=== PATIENT | female | born 1940 | race Caucasian/White ===

== ENCOUNTER → 2019-04-04 12:56 | Outpatient (CLI) | payer MEDICARE, BC, SELFPAY ==
--- NOTE | 2019-04-04 13:01 | MM_ITS ---
MM Dig screening mamm BI w/CAD CAD Screening COMPARISON: Outside digital mammograms with CAD 12/11/2017 and 12/10/2016 INDICATION: There is a history of breast cancer patient's mother diagnosed at age 75. TECHNIQUE: Standard CC and MLO images were obtained. R2 CAD reviewed. FINDINGS: The breasts are composed primarily of fat with minimal scattered fibroglandular densities in each breast. There is a mole marker on each breast. There are few scattered benign-appearing microcalcifications in each breast. There is no suspicious lesion and there are no suspicious microcalcifications. IMPRESSION: Fibrofatty parenchyma with no suspicious lesion seen BI-RADS Category: 2 Benign Finding(s) RECOMMENDED FOLLOW-UP: 1YR - 1 YEAR FOLLOW-UP (A letter has been sent to the patient regarding results of the study.)
== END ==
PROVIDERS: PCP Nurse Practitioner Family; Visit Provider Nurse Practitioner Family
DX: Z12.31 Encounter for screening mammogram for malignant neoplasm of breast (principal)
CPT/HCPCS: 77067

== ENCOUNTER → 2019-07-05 14:21 | Outpatient (CLI) | payer MEDICARE, BC, SELFPAY ==
[2019-07-05 17:11] LABS: Free T4 (Free Thyroxine) 1.37 ng/dl (0.76-1.46); Thyroid Stimulating Hormone 0.19 uIU/ml (0.358-3.740)
[2019-07-09 13:21] LABS: Thyroglobulin Level <1.0 IU/mL (0.0-0.9); Triiodothyronine (T3) Free 1.5 pg/mL (2.0-4.4)
== END ==
PROVIDERS: Visit Provider Internal Medicine Endocrinology, Diabetes & Metabolism
DX: E89.0 Postprocedural hypothyroidism (principal); R94.6 Abnormal results of thyroid function studies; Z85.850 Personal history of malignant neoplasm of thyroid
CPT/HCPCS: 36415; 84436; 84439; 84443; 84481; 86800

== ENCOUNTER → 2019-08-04 09:22 | Outpatient (CLI) | payer MEDICARE, BC, SELFPAY ==
--- NOTE | 2019-08-04 09:27 | XR_ITS ---
PROCEDURE: XR FOOT WT BEARING LT 3V CLINICAL INDICATION: Pain COMPARISON: XR ANKLE WT BEARING LT MIN 3V from 08/04/2019 FINDINGS: No fracture or dislocation. No lytic or blastic change. There is normal mineralization. The joint spaces are well-preserved. No significant degenerative/arthritic changes. No erosive changes evident. Other findings:There is mild pes planus. There is mild soft tissue swelling overlying the medial malleolar region. The talar dome has an unremarkable appearance. IMPRESSION: Mild pes planus with soft tissue swelling overlying the medial aspect of the ankle otherwise negative Dictated by: Bradley Wyatt MD 08/04/2019 15:27 Electronically signed by Bradley Wyatt MD in [place] 08/04/2019 15:27
--- NOTE | 2019-08-04 09:27 | XR_ITS ---
PROCEDURE: XR ANKLE WT BEARING RT MIN 3V CLINICAL INDICATION: pain COMPARISON: XR FOOT WT BEARING RT 3V from 08/04/2019 FINDINGS: Mild soft tissue swelling at the medial malleolar region. There is a small os trigonum. Minimal osteoarthritic changes are present at the 1st MTP joint. No fracture or dislocation. No lytic or blastic change or other significant degenerative change. IMPRESSION: Mild osteoarthritic change 1st MTP joint with mild soft tissue swelling at the medial ankle Dictated by: Bradley Wyatt MD 08/04/2019 15:28 Electronically signed by Bradley Wyatt MD in [place] 08/04/2019 15:28
== END ==
PROVIDERS: PCP Nurse Practitioner Family; Visit Provider Podiatrist
DX: M79.672 Pain in left foot; M79.671 Pain in right foot; M25.572 Pain in left ankle and joints of left foot; M25.571 Pain in right ankle and joints of right foot
CPT/HCPCS: 73610; 73630

== ENCOUNTER → 2020-04-10 09:45 | Outpatient (CLI) | payer MEDICARE, BC, SELFPAY ==
--- NOTE | 2020-04-10 09:51 | MM_ITS ---
PROCEDURE: MM DIG SCREENING MAMM BI W/CAD Digital Breast Tomosynthesis Included CLINICAL INDICATION: SCREENING There is a history of breast cancer patient's mother diagnosed after menopause. COMPARISON: DIG MAMM-SCREEN LARA from 04/04/2019 TECHNIQUE: Standard CC and MLO images and 3D Tomosynthesis was obtained. R2 CAD reviewed. FINDINGS: Scattered fibroglandular densities are seen throughout both breast. There is a mole marker on each breast and there are few benign-appearing calcifications in each breast. There is a possible developing small density with irregular borders medial quadrant right breast at approximately the 3 o'clock position recommend the patient return for spot compression views and ultrasound for additional evaluation. There are no suspicious microcalcifications. There are small normal appearing nodes in both axilla. IMPRESSION: Fibrofatty parenchyma with possible developing asymmetric density right breast BI-RAD Category: 0 Need Additional Imaging Evaluation FOLLOW-UP: IMM Immediate Follow-up Recommended (A letter has been sent to the patient regarding results of the study.) Dictated by: Dr. Ike Escalante MD 04/13/2020 09:[address] Ike Escalante MD in [place] 04/13/2020 09:21
== END ==
PROVIDERS: PCP Nurse Practitioner Family; Visit Provider Nurse Practitioner Family
DX: Z12.31 Encounter for screening mammogram for malignant neoplasm of breast (principal)
CPT/HCPCS: 77063; 77067

== ENCOUNTER → 2020-04-25 13:08 | Outpatient (CLI) | payer MEDICARE, BC, SELFPAY ==
--- NOTE | 2020-04-25 13:12 | US_ITS ---
PROCEDURE: MM DIG MAMM DX UNILAT RT CAD Digital Breast Tomosynthesis Included CLINICAL INDICATION: ABN R BREAST ON SCREENING MAMM COMPARISON: DIG MAMM-SCREEN LARA from 04/04/2019 MM DIG SCREENING MAMM BI W/CAD from 04/10/2020 US BREAST RT COMPLETE from 04/25/2020 TECHNIQUE: Spot compression views and right breast ultrasound FINDINGS: There is a small asymmetric density ill-defined in the medial aspect of the right breast. This appears to at least somewhat compress out on the spot compression views. No sonographic abnormality apparent in this region. This may only be related to asymmetric fibroglandular tissue. Six-month follow-up is suggested. Right breast ultrasound: No cystic or solid lesions evident. IMPRESSION: BI-RAD Category: 3 Probably Benign Finding Short Term Follow-up FOLLOW-UP: 6M 6Month Follow-up (A letter has been sent to the patient regarding results of the study.) Dictated by: Bradley Wyatt MD 04/30/2020 09:03 Electronically signed by Bradley Wyatt MD in [place] 04/30/2020 09:03
== END ==
PROVIDERS: PCP Nurse Practitioner Family; Visit Provider Nurse Practitioner Family
DX: R92.8 Other abnormal and inconclusive findings on diagnostic imaging of breast (principal)
CPT/HCPCS: 76641; 77061; 77065; G0279

== ENCOUNTER → 2021-06-10 13:39 | Outpatient (CLI) | payer MEDICARE, BC, SELFPAY ==
--- NOTE | 2021-06-10 13:47 | US_ITS ---
PROCEDURE: US THYROID CLINICAL INDICATION: F/U THYROID CA COMPARISON: No exams were available for comparison FINDINGS: There is reported prior left thyroidectomy and radiation to the thyroid region. Right lobe is small with a remnant of tissue noted measuring 6 x 4 x 6 mm. No nodule apparent. No thyroid tissue apparent on the left or at the isthmus. No nodules or masses apparent IMPRESSION: Status post left-sided thyroidectomy. Small remnant of tissue is present on the right. No mass or other significant anomaly. Dictated by: Bradley Wyatt MD 06/10/2021 14:44 Bradley Wyatt MD in [place] 06/10/2021 14:44
== END ==
PROVIDERS: PCP Nurse Practitioner Family; Visit Provider Internal Medicine Endocrinology, Diabetes & Metabolism
DX: Z85.850 Personal history of malignant neoplasm of thyroid (principal)
CPT/HCPCS: 76536

== ENCOUNTER → 2022-02-25 08:22 | Outpatient (POV) | payer MEDICARE, BC, SELFPAY | PROVIDERS: Visit Provider Dermatology | DX: Z00.00 Encounter for general adult medical examination without abnormal findings (principal) ==

== ENCOUNTER → 2022-03-26 12:32 | Outpatient (CLI) | payer MEDICARE, BC, SELFPAY ==
[2022-03-27 08:13] LABS: Triiodothyronine (T3) Free 1.6 pg/mL (2.0-4.4)
== END ==
PROVIDERS: PCP Nurse Practitioner Family; Visit Provider Internal Medicine Endocrinology, Diabetes & Metabolism
DX: R53.83 Other fatigue (principal)
CPT/HCPCS: 36415; 84481

== ENCOUNTER 2022-03-27 17:29 | Inpatient (IN) | payer MEDICARE, BC, SELFPAY ==
[2022-03-27] VITALS (8 sets, daily range): BP systolic 99–120; BP diastolic 52–64; PULSE 74–85; RESP 17–21; TEMP 36.6–36.7; O2SAT 93–96; BMI 28.3; BMI 31.6
--- NOTE | 2022-03-27 17:40 | HMH.EDGENADL ---
ED Disposition Clinical Impression: Hypomagnesemia, Hypocalcemia, Hypokalemia Disposition: Admitted As Inpatient Condition on Discharge: Serious Referrals: Dinora Quevedo MD [Primary Care Provider] - Time of Disposition: 20:07 - Critical Care Critical Care Time: No Attestation: On 03/27/22, the high probability of a clinically significant, sudden or life threatening deterioration of the following system(s) required my full and direct attention, intervention and personal management. The time I documented below is in addition to time spent performing reported procedures but includes the following listed in this critical care notation. Medical Decision Making - Medical Records Medical records reviewed: Yes: I reviewed the patient's medical records. - Benjie Inquiry Pt receiving controlled substance: No Vital Signs: 03/27/22 17:31 03/27/22 18:00 Temperature 98.1 F Temperature Source Oral Pulse Rate 78 Pulse Rate [Right Radial] 85 Respiratory Rate 21 Blood Pressure 99/52 L Blood Pressure [Right Arm] 118/61 Blood Pressure Mean 77 Blood Pressure Mean [Right Arm] 80 Blood Pressure Source [Right Arm] Automatic Cuff Blood Pressure Position [Right Arm] Sitting 02 Sat by Pulse Oximetry 95 93 L Oxygen Delivery Method Room Air Nasal Cannula Oxygen Flow Rate (LPM) 3 - Lab Data Lab results reviewed: Yes: I reviewed the patient's lab results. Lab Results 03/27/22 18:00: WBC 13.6 H, RBC 4.07 L, Hgb 11.7 L, Hct 35.3 L, MCV 86.7, MCH 28.6, MCHC 33.0, RDW 15.1, Plt Count 250, MPV 8.8, Neut % (Auto) 94.5 H, Lymph % (Auto) 3.6 L, Reynolds % (Auto) 1.3 L, Eos % (Auto) 0.3, Baso % (Auto) 0.3, Neut # (Auto) 12.9 H, Lymph # (Auto) 0.5 L, Reynolds # (Auto) 0.2, Eos # (Auto) 0.0, Baso # (Auto) 0.0, Total Counted 100, Neutrophils % (Manual) 92 H, Band Neutrophils % 2.0, Lymphocytes % (Manual) 5 L, Monocytes % (Manual) 1 L, Platelet Estimate Normal, RBC Morphology Normal 03/27/22 18:00: Sodium 140, Potassium 3.0 L, Chloride 103, Carbon Dioxide 23, Anion Gap 17.0 H, BUN 23 H, Creatinine 1.20 H, Estimated Creat Clear 40, Estimated GFR 43 L, Est GFR ( Amer) 52 L, Glucose 197 H, Calcium 5.2 L* 03/27/22 18:00: Phosphorus 3.5, Magnesium 0.3 L, PTH Intact 34.5 03/27/22 18:00: Albumin 3.6 Result diagrams: 03/27/22 18:00 03/27/22 18:00 Orders (Tests/Meds): ED MEDICATIONS Generic Name Dose Route Start Last Admin Trade Name Freq PRN Reason Stop Dose Admin Calcium Gluconate 2,000 mg/ 120 mls @ 60 mls/hr 03/27/22 19:12 Sodium Chloride IV 03/27/22 21:11 ONCE ONE Magnesium Sulfate 2 gm in 50 mls @ 50 mls/hr 03/27/22 19:12 03/27/22 19:35 Magnesium Sulfate 2gm/50ml Premix IV 03/27/22 20:11 50 mls/hr ONCE ONE Administration Discontinued Medications Generic Name Dose Route Start Last Admin Trade Name Freq PRN Reason Stop Dose Admin Potassium Chloride 40 meq 03/27/22 19:12 03/27/22 19:35 Potassium Chloride 20meq Tab PO 03/27/22 19:13 40 meq ONCE ONE Administration ORDERS Category Date Time Status Rapid PCR Covid and Flu A/B Stat Lab 03/27/22 19:19 Received - ECG Data Tracing #1 I reviewed this ECG and interpreted as documented below: NSR @ 80 with occasional PVC;s WA 137 QRS 93 QTc 416 non-specific ST/T wave changes Medical Decision Narrative: profound electrolyte disturbances, spoke with Dr. Berman who offered transfer may be useful as pt may require endocrinology or nephrology. Discussed with pt and who decline transfer. i did discuss the risks and limitations of this. She is agreeable to admission here, so will pursue that as the safest next option. electrolytes being replaced here and pt currently stable and relatively asymptomatic. General Adult HPI - General Stated complaint: low on calcuim Time Seen by Provider: 03/27/22 17:40 Mode of Arrival: Ambulatory Limitations: No Limitations - History of Present Illness HPI narrative: 81 yo/F,
--- NOTE | 2022-03-27 17:46 | ECG_ITS ---
APPROVED REPORT Exam: Resting ECG HR:80 bpm ECG Measurements Heart Rate 80 AXES CA 137 P 75 QRSd 93 QRS 74 QT 380 T 46 QTc 416 Conclusion SINUS RHYTHM WITH OCCASIONAL VENTRICULAR PREMATURE COMPLEXES NONSPECIFIC ST & T-WAVE ABNORMALITY BORDERLINE ECG UNCONFIRMED REPORT Electronically signed by : Hammad Queen MD 03/28/2022 15:36:23
[2022-03-27 18:17] LABS: Basophils % 0.3 % (0.1-2.0); Eosinophils % 0.3 % (0.1-12.0); Hematocrit 35.3 % (37.0-47.0); Hemoglobin 11.7 g/dL (12.2-16.2); Lymphocytes # 0.5 K/mm3 (0.7-4.5); Lymphocytes % 3.6 % (10-50); Mean Corpuscular Hemoglobin 28.6 pg (27.0-31.2); Mean Corpuscular Volume 86.7 fl (81-99); Mean Platelet Volume 8.8 fl (7.4-10.4); Monocytes # 0.2 K/mm3 (0.1-1.0); Monocytes % 1.3 % (1.7-9.3); Neutrophils # 12.9 K/mm3 (1.8-7.8); Neutrophils % 94.5 % (37.0-80.0); Platelet Count 250 K/mm3 (142-424); Red Blood Count 4.07 M/mm3 (4.20-5.40); Red Cell Distribution Width 15.1 % (11.5-17.5); White Blood Count 13.6 K/mm3 (4.8-10.8)
[2022-03-27 18:18] LABS: MANUAL DIFFERENTIAL MANUAL DIFFERENTIAL (MANUAL DIFF)
[2022-03-27 18:22] LABS: Blood Urea Nitrogen 23 mg/dl (7-17); Carbon Dioxide 23 mmol/L (22.0-30.0); Chloride 103 mmol/L (98-107); Creatinine Clearance Estimated 40 mL/min (50-200); Estimated Glomerular Filt Rate 43 ml/min (>60); GFR (African American) 52 ML/MIN (>60); Glucose 197 mg/dl (74-100); Sodium 140 mmol/L (136-145)
[2022-03-27 18:23] LABS: Phosphorous 3.5 mg/dl (2.5-4.5)
[2022-03-27 18:27] LABS: Calcium 5.2 mg/dl (8.4-10.2)
[2022-03-27 18:28] LABS: Magnesium 0.3 mg/dl (1.6-2.3)
[2022-03-27 18:35] LABS: Intact Parathyroid Hormone 34.5 pg/mL (7.5-53.5)
[2022-03-27 18:50] LABS: Lymphocytes % 5 % (10-50); Monocytes % 1 % (2-9); Neutrophils % 92 % (42-76); Platelet Estimate Normal; RBC Morphology Normal; Total Cells Counted 100
--- NOTE | 2022-03-27 19:15 | PC.NURSE ---
Dr. Cullen bashir.
[2022-03-27 19:22] LABS: Coronavirus 19, PCR Not Detected (NotDetected); Influenza A, PCR Not Detected (NotDetected); Influenza B, PCR Not Detected (NotDetected)
--- NOTE | 2022-03-27 19:32 | PC.NURSE ---
speaking to Dr. Berman
--- NOTE | 2022-03-27 19:38 | PC.NURSE ---
spoke with pt and she refused to be transferred to another facility. speaking with Dr. Berman at this time.
[2022-03-27 19:39] LABS: Albumin Level 3.6 g/dl (3.5-5.0)
--- NOTE | 2022-03-27 19:43 | PC.NURSE ---
MD SPOKE WITH PATIENT AND REFUSES TRANSFER AT THIS TIME. PT ABLE TO VERBALIZE BENEFITS OF TRANSFER AND STATES SHE WANTS TO STAY HERE.
--- NOTE | 2022-03-27 21:05 | PC.NURSE ---
pt arrived to floor via wheelchair at 21:04
[2022-03-28 04:00] VITALS: BP 119/65; PULSE 81; RESP 16; TEMP 36.8; O2SAT 92
--- NOTE | 2022-03-28 04:25 | PC.NURSE ---
Patient continues to have bilateral upper extremity tremors. Patient ambulates with standby assistance to the bathroom and tolerates it well. remains at bedside. Patient has rested well. No concerns voiced to this RN.
[2022-03-28 04:56] VITALS: BMI 31.6
[2022-03-28 07:00] LABS: Basophils % 0.1 % (0.1-2.0); Hematocrit 35.5 % (37.0-47.0); Hemoglobin 11.6 g/dL (12.2-16.2); Lymphocytes # 0.6 K/mm3 (0.7-4.5); Lymphocytes % 4.6 % (10-50); Mean Corpuscular HGB Conc 32.8 g/dL (31.8-35.4); Mean Corpuscular Hemoglobin 28.8 pg (27.0-31.2); Mean Corpuscular Volume 87.6 fl (81-99); Mean Platelet Volume 8.8 fl (7.4-10.4); Monocytes # 0.2 K/mm3 (0.1-1.0); Monocytes % 1.5 % (1.7-9.3); Neutrophils % 93.7 % (37.0-80.0); Platelet Count 254 K/mm3 (142-424); Red Blood Count 4.05 M/mm3 (4.20-5.40); Red Cell Distribution Width 15.1 % (11.5-17.5); White Blood Count 12.8 K/mm3 (4.8-10.8)
[2022-03-28 07:04] LABS: MANUAL DIFFERENTIAL MANUAL DIFFERENTIAL (MANUAL DIFF)
[2022-03-28 07:06] LABS: Chloride 107 mmol/L (98-107); Sodium 141 mmol/L (136-145)
[2022-03-28 07:07] LABS: Potassium 3.4 mmoL/L (3.5-5.1)
[2022-03-28 07:09] LABS: Albumin Level 3.5 g/dl (3.5-5.0); Albumin/Globulin Ratio 1.2 (1.1-1.8); Globulin 2.9 g/dL (1.3-3.2); Magnesium 1.4 mg/dl (1.6-2.3); Total Protein,Serum 6.4 g/dl (6.3-8.2)
--- NOTE | 2022-03-28 07:10 | P.CONPHA_ITS ---
[facility] [place] Pharmacy VTE Monitoring - Patient Demographics Admission date: 03/27/22 Report Date: 03/28/22 Time: 07:10 Allergies/Adverse Reactions: Patient Allergies No Known Allergies Allergy (Verified 08/04/19 08:15) Height: 1.55 m Weight: 75.977 kg Patient Problems: Current Active Problems Hypomagnesemia (Acute) Hypocalcemia (Acute) Hypokalemia (Acute) - VTE Risk Labs: VTE Related Lab Results Hgb 11.6 g/dL (12.2-16.2) L 03/28/22 05:48 Hct 35.5 % (37.0-47.0) L 03/28/22 05:48 Plt Count 254 K/mm3 (142-424) 03/28/22 05:48 BUN 23 mg/dl (7-17) H 03/27/22 18:00 Creatinine 1.20 mg/dl (0.52-1.04) H 03/27/22 18:00 Estimated Creat Clear 40 mL/min (50-200) 03/27/22 18:00 Was VTE Risk Assessment Performed: Yes VTE Score: 4 VTE Risk Level: Low Risk - Prophylaxis VTE Prophylaxis Ordered?: Yes Types of VTE Prophylaxis: TEDS Knee High Location of Applied Device: Bilateral Lower Extremeties
--- NOTE | 2022-03-28 07:20 | HMH.HP ---
*Admission Date: 03/27/22 *Chief complaint: weakness *History of present illness: Ms. Mitchell is a pleasant 81-year-old female who presented to the ER at the request of her PCP because of shaking/tremor and labs identifying low calcium level. States she had developed a resting tremor in her upper extremities over the past week. Her PCP obtained labs showing severely low calcium and instructed her to come to the ER. On arrival her repeat labs were obtained showing severe electrolyte disturbances including hypocalcemia, hypomagnesemia. Stable on room air. Hemodynamically stable. Of note had a similar episode requiring hospitalization in [place] little over a year ago. Denies chest pain, nausea, vomiting, diarrhea, significant weakness. Feels her tremor is a little bit improved this morning. Electrolytes repleted overnight. at bedside. Tolerating p.o. intake. Of note she does report chronic diarrhea ever since cholecystectomy years ago. She does have prior history of thyroidectomy for thyroid cancer. Follows with post commander (Dr. Campbell) in [place]. Has an appointment next week. [facility] History I have reviewed the patient's past medical history: Yes Medical History: Reports:: Cancer (Thyroid), Chronic Obstructive Pulmonary Disease (COPD), Gastroesophageal Reflux Disease(GERD), Hypertension Denies:: Diabetes Mellitus Type 1, Diabetes Mellitus Type 2, MRSA *Have you ever received a pneumonia vaccine?: Yes *Have you received a flu vaccine this season?: No Other Medical History: Reports: Arthritis, Cataracts, Thyroid Disease Laterality Cases: Bilateral: Tonsillectomy Other Surgeries: Yes: Appendectomy, Cancer Surgery, Colonoscopy, Hysterectomy-Total, Thyroidectomy (partial ) Amputation: No Fractures: No - *Social History Smoking Status: Never smoker Alcohol Intake: never *Occupational Status:: retired Housing: house Household Members: spouse *Travel in the last 8 weeks: None Family Hx:: Cancer, Hypertension Review of Systems - Review of Systems Review of systems:: pertinent systems reviewed and negative unless documented below (14 point review of systems performed, pertinent positives and negatives as per HPI) - *Neurologic Reports tremor(s) Meds Home Medications Medication Instructions Recorded Confirmed Type amlodipine 10 mg tablet 10 mg PO DAILY #90 tab 08/04/19 03/28/22 History losartan 50 mg tablet 50 mg PO DAILY #90 tab 08/04/19 03/28/22 History omeprazole 20 mg capsule,delayed 20 mg PO DAILY #90 cap 08/04/19 03/28/22 History release umeclidinium 62.5 mcg-vilanterol 1 puff IH DAILY #60 each 08/04/19 03/28/22 History 25 mcg/actuation powdr for inhalation Albuterol Sulfate [Proair 1 puff IH QIDP PRN 03/28/22 03/28/22 History Digihaler] Alendronate Sodium [Fosamax 70mg 70 mg PO WEEKLY 03/28/22 03/28/22 History Tablet] Colestipol HCl 1 gm PO DAILY 03/28/22 03/28/22 History Levothyroxine Sodium 125 mcg PO DAILY 03/28/22 03/28/22 History [Levothyroxine 125mcg (0.125mg) Tab] Rosuvastatin Calcium 10 mg PO HS 03/28/22 03/28/22 History Allergies Allergy/AdvReac Type Severity Reaction Status Date / Time No Known Allergies Allergy Verified 08/04/19 08:15 Exam Vital signs and Labs for Last 24 Hours: Temp Pulse Resp BP Pulse Ox 98.2 F 81 16 119/65 92 L 03/28/22 04:00 03/28/22 04:00 03/28/22 04:00 03/28/22 04:00 03/28/22 04:00 Laboratory Results - last 24 hr 03/27/22 18:00: WBC 13.6 H, RBC 4.07 L, Hgb 11.7 L, Hct 35.3 L, MCV 86.7, MCH 28.6, MCHC 33.0, RDW 15.1, Plt Count 250, MPV 8.8, Neut % (Auto) 94.5 H, Lymph % (Auto) 3.6 L, [place]son % (Auto) 1.3 L, Eos % (Auto) 0.3, Baso % (Auto) 0.3, Neut # (Auto) 12.9 H, Lymph # (Auto) 0.5 L, Anson # (Auto) 0.2, Eos # (Auto) 0.0, Baso # (Auto) 0.0, Total Counted 100, Neutrophils % (Manual) 92 H, Band Neutrophils % 2.0, Lymphocytes % (Manual) 5 L, Monocytes % (Manual) 1 L, Platelet Estimate Normal, RBC Morphology Normal 03/27/22 18
[2022-03-28 07:24] LABS: Lymphocytes % 3 % (10-50); Neutrophils % 97 % (42-76); Platelet Estimate Normal; RBC Morphology Normal; Total Cells Counted 100
--- NOTE | 2022-03-28 07:25 | HMH.PHAINT ---
home medication list verified using list from [facility]
[2022-03-28 07:31] LABS: Intact Parathyroid Hormone 124.4 pg/mL (7.5-53.5)
[2022-03-28 07:36] LABS: Alanine Aminotransferase 14 U/L (12-78); Anion Gap 12.4 mEq/L (5-15); Aspartate Amino Transferase 26 U/L (14-36); Bilirubin,Total 0.3 mg/dl (0.2-1.3); Blood Urea Nitrogen 28 mg/dl (7-17); Calcium 6.6 mg/dl (8.4-10.2); Carbon Dioxide 25 mmol/L (22.0-30.0); Creatinine Clearance Estimated 45 mL/min (50-200); Estimated Glomerular Filt Rate 43 ml/min (>60); GFR (African American) 52 ML/MIN (>60); Glucose 149 mg/dl (74-100)
[2022-03-28 07:37] LABS: Alkaline Phosphatase 89 U/L (38-126)
[2022-03-28 08:00] VITALS: BP 132/72; PULSE 86; RESP 20; TEMP 36.4; O2SAT 94
--- NOTE | 2022-03-28 13:53 | PC.NURSE ---
Received report from Binta Toribio. Assessed patient and no complaints noted.
[2022-03-28 16:00] VITALS: BP 130/60; PULSE 79; RESP 20; TEMP 37; O2SAT 95
[2022-03-28 16:03] VITALS: BMI 31.6
[2022-03-28 19:10] LABS: Chloride 107 mmol/L (98-107); Potassium 3.8 mmoL/L (3.5-5.1); Sodium 142 mmol/L (136-145)
[2022-03-28 19:12] LABS: Blood Urea Nitrogen 33 mg/dl (7-17); Creatinine Clearance Estimated 38 mL/min (50-200); Estimated Glomerular Filt Rate 36 ml/min (>60); GFR (African American) 44 ML/MIN (>60)
[2022-03-28 19:13] LABS: Alanine Aminotransferase 22 U/L (12-78); Albumin Level 3.7 g/dl (3.5-5.0); Albumin/Globulin Ratio 1.2 (1.1-1.8); Alkaline Phosphatase 84 U/L (38-126); Anion Gap 11.8 mEq/L (5-15); Aspartate Amino Transferase 30 U/L (14-36); Bilirubin,Total 0.3 mg/dl (0.2-1.3); Calcium 8.2 mg/dl (8.4-10.2); Carbon Dioxide 27 mmol/L (22.0-30.0); Glucose 151 mg/dl (74-100); Total Protein,Serum 6.7 g/dl (6.3-8.2)
[2022-03-28 19:33] LABS: Magnesium 1.7 mg/dl (1.6-2.3)
[2022-03-28 20:00] VITALS: BP 124/61; PULSE 77; RESP 20; TEMP 36.9; O2SAT 94
--- NOTE | 2022-03-29 04:28 | PC.NURSE ---
Patient's had visited before 2099, brought patient's home medications that patient took without checking with nursing first.
[2022-03-29 04:30] VITALS: BP 142/68; PULSE 79; RESP 18; TEMP 36.8; O2SAT 94
[2022-03-29 05:00] VITALS: BMI 33.7
[2022-03-29 07:23] LABS: Chloride 107 mmol/L (98-107)
[2022-03-29 07:24] LABS: Potassium 3.5 mmoL/L (3.5-5.1); Sodium 140 mmol/L (136-145)
[2022-03-29 07:26] LABS: Alanine Aminotransferase 19 U/L (12-78); Aspartate Amino Transferase 30 U/L (14-36); Blood Urea Nitrogen 31 mg/dl (7-17); Creatinine Clearance Estimated 57 mL/min (50-200); Estimated Glomerular Filt Rate 53 ml/min (>60); GFR (African American) 65 ML/MIN (>60)
[2022-03-29 07:27] LABS: Albumin Level 3.5 g/dl (3.5-5.0); Albumin/Globulin Ratio 1.3 (1.1-1.8); Alkaline Phosphatase 88 U/L (38-126); Anion Gap 8.5 mEq/L (5-15); Bilirubin,Total 0.3 mg/dl (0.2-1.3); Calcium 7.8 mg/dl (8.4-10.2); Carbon Dioxide 28 mmol/L (22.0-30.0); Globulin 2.8 g/dL (1.3-3.2); Glucose 103 mg/dl (74-100); Magnesium 1.4 mg/dl (1.6-2.3); Total Protein,Serum 6.3 g/dl (6.3-8.2)
[2022-03-29 07:30] LABS: Basophils # 0.1 K/mm3 (0-0.2); Basophils % 0.3 % (0.1-2.0); Eosinophils % 0.1 % (0.1-12.0); Hematocrit 38.1 % (37.0-47.0); Hemoglobin 12.4 g/dL (12.2-16.2); Lymphocytes # 1.7 K/mm3 (0.7-4.5); Lymphocytes % 10.5 % (10-50); Mean Corpuscular HGB Conc 32.6 g/dL (31.8-35.4); Mean Corpuscular Hemoglobin 28.6 pg (27.0-31.2); Mean Corpuscular Volume 87.8 fl (81-99); Mean Platelet Volume 9.1 fl (7.4-10.4); Monocytes # 0.8 K/mm3 (0.1-1.0); Monocytes % 4.9 % (1.7-9.3); Neutrophils # 13.8 K/mm3 (1.8-7.8); Neutrophils % 84.2 % (37.0-80.0); Platelet Count 323 K/mm3 (142-424); Red Blood Count 4.34 M/mm3 (4.20-5.40); Red Cell Distribution Width 15.1 % (11.5-17.5); White Blood Count 16.4 K/mm3 (4.8-10.8)
[2022-03-29 07:42] LABS: MANUAL DIFFERENTIAL MANUAL DIFFERENTIAL (MANUAL DIFF)
[2022-03-29 07:59] VITALS: BP 140/62; PULSE 81; RESP 14; TEMP 37.3; O2SAT 94
--- NOTE | 2022-03-29 08:56 | HMH.DCSUM ---
General - General Admission date:: 03/27/22 Discharge date: 03/29/22 HPI HPI: Ms. Mitchell is a pleasant 81-year-old female who presented to the ER at the request of her PCP because of shaking/tremor and labs identifying low calcium level. States she had developed a resting tremor in her upper extremities over the past week. Her PCP obtained labs showing severely low calcium and instructed her to come to the ER. On arrival her repeat labs were obtained showing severe electrolyte disturbances including hypocalcemia, hypomagnesemia. Stable on room air. Hemodynamically stable. Of note had a similar episode requiring hospitalization in [place] little over a year ago. Denies chest pain, nausea, vomiting, diarrhea, significant weakness. Feels her tremor is a little bit improved this morning. Electrolytes repleted overnight. at bedside. Tolerating p.o. intake. Of note she does report chronic diarrhea ever since cholecystectomy years ago. She does have prior history of thyroidectomy for thyroid cancer. Follows with flying teacher (Dr. Campbell) in [place]. Has an appointment next week. Hospital Course Hospital Course: Patient was admitted. Calcium and magnesium replaced intravenously. She tolerated this very well and had a very nice improvement in her physiologic symptoms once electrolyte levels approaching normal. Talkative this morning she wishes to be discharged home. She has appointment with endocrinology this week and with her primary care provider who is in the [facility] over the next week and a half. I instructed her to start taking OTC magnesium oxide 400 mg twice daily as well as calcium carbonate in the form of Tums tablets, 2 tablets twice daily until she sees Dr. Campbell. Will provide her with a paper copy of her labs so that he can review these, especially her parathyroid levels which interestingly bryn dramatically after calcium supplementation. Objective Vital signs: Temp Pulse Resp BP Pulse Ox 99.1 F 81 14 140/62 94 L 03/29/22 07:59 03/29/22 07:59 03/29/22 07:59 03/29/22 07:59 03/29/22 07:59 no acute distress - *Routine HEENT Exam Head: Present: normocephalic Eye: Present: EOMI, PERRL ENT: Present: mucous membranes moist - *Routine Neck Exam Present: supple - *Routine Respiratory Exam Present: CTA bilaterally - *Routine Cardiovascular Exam Present: RRR - *Routine Abdominal Exam Present: soft, normoactive bowel sounds. Absent: tenderness - *Routine Extremities Exam Absent: cyanosis, clubbing, edema - *Routine Skin Exam Present: warm. Absent: rash - Detailed Eye Exam Eyelids: Bilateral normal inspection Results Labs on day of discharge: Labs from last 24 hours 03/29/22 03/29/22 03/28/22 06:42 06:42 18:26 WBC 16.4 H D RBC 4.34 Hgb 12.4 Hct 38.1 MCV 87.8 MCH 28.6 MCHC 32.6 RDW 15.1 Plt Count 323 D MPV 9.1 Neut % (Auto) 84.2 H Lymph % (Auto) 10.5 Caroline % (Auto) 4.9 Eos % (Auto) 0.1 Baso % (Auto) 0.3 Neut # (Auto) 13.8 H Lymph # (Auto) 1.7 Caroline # (Auto) 0.8 Eos # (Auto) 0.0 Baso # (Auto) 0.1 Sodium 140 142 Potassium 3.5 3.8 Chloride 107 107 Carbon Dioxide 28 27 Anion Gap 8.5 11.8 BUN 31 H 33 H Creatinine 1.00 D 1.40 H Estimated Creat Clear 57 38 Estimated GFR 53 L 36 L Est GFR ( Amer) 65 D 44 L Glucose 103 H D 151 H Calcium 7.8 L 8.2 L Magnesium 1.4 L D 1.7 D Total Bilirubin 0.3 0.3 AST 30 30 ALT 19 22 D Alkaline Phosphatase 88 84 Total Protein 6.3 6.7 Albumin 3.5 3.7 Globulin 2.8 3.0 Albumin/Globulin Ratio 1.3 1.2 DS: Diagnosis - Discharge Diagnosis (1) Hypocalcemia Status: Acute (2) Hypokalemia Status: Acute (3) Hypomagnesemia Status: Acute (4) Hyperparathyroidism Status: Acute (5) Hypothyroid Status: Chronic (6) Essential hypertension Status: Chr
[2022-03-29 14:50] LABS: Anisocytosis 1+; Hypochromasia 1+; Lymphocytes % 7 % (10-50); Monocytes % 8 % (2-9); Neutrophils % 85 % (42-76); Platelet Estimate Normal; Total Cells Counted 100
[2022-03-29 17:09] LABS: Calcium, Ionized 3.8 mg/dL (4.5-5.6)
--- NOTE | 2022-03-31 17:00 | CARE MANAGER ---
Contacted patient related to discharge from hospital. She states she is still sore, but probably from the poking for IVs and blood draws. She states she is taking medication as discussed with Dr. Queen and plans to keep appointment with position classification specialist on Thursday as scheduled. She denies other questions or concerns. GRISELDA Wisdom
== END 2022-03-29 09:39 | disposition home or self-care (01) | DRG 641 ==
LOC: ER 20:07 → 2ND 20:14
PROVIDERS: Admitting Provider Internal Medicine Adolescent Medicine; Emergency Provider Emergency Medicine; PCP Nurse Practitioner Family; Visit Provider Internal Medicine Adolescent Medicine
DX: E83.51 Hypocalcemia (principal); E87.6 Hypokalemia; E83.42 Hypomagnesemia; E03.9 Hypothyroidism, unspecified; Z20.822 Contact with and (suspected) exposure to COVID-19; I12.9 Hypertensive chronic kidney disease with stage 1 through stage 4 chronic kidney disease, or unspecified chronic kidney disease; N18.9 Chronic kidney disease, unspecified; I25.10 Atherosclerotic heart disease of native coronary artery without angina pectoris; Z85.850 Personal history of malignant neoplasm of thyroid; J44.9 Chronic obstructive pulmonary disease, unspecified; K21.9 Gastro-esophageal reflux disease without esophagitis; K52.9 Noninfective gastroenteritis and colitis, unspecified
CPT/HCPCS: 36415; 80048; 80053; 82040; 82330; 83735; 83970; 84100; 84481; 85007; 85025; 93005; 99285; C9803; J3475; U0003; U0005

== ENCOUNTER 2022-05-25 13:18 | Inpatient (IN) | payer MEDICARE, BC, SELFPAY ==
[2022-05-25] VITALS (25 sets, daily range): BP systolic 115–156; BP diastolic 50–95; PULSE 66–88; RESP 12–20; TEMP 36.3–43; O2SAT 93–97; BMI 29.2
--- NOTE | 2022-05-25 13:54 | PC.NURSE ---
Attempted to stick patient twice in LAC and L forearm and was unsuccessful. Melida VILLALOBOS aware and at bedside now attempting. Provided pt and family member with warm blankets as well.
--- NOTE | 2022-05-25 13:55 | HMH.EDGENADL ---
ED Disposition Clinical Impression: Incarcerated hernia, Small bowel obstruction Disposition: Admitted As Inpatient Condition on Discharge: Fair Referrals: Dinora Quevedo MD [Primary Care Provider] - - Critical Care Critical Care Time: No Attestation: On 05/25/22, the high probability of a clinically significant, sudden or life threatening deterioration of the following system(s) required my full and direct attention, intervention and personal management. The time I documented below is in addition to time spent performing reported procedures but includes the following listed in this critical care notation. Medical Decision Making - Benjie Inquiry Pt receiving controlled substance: Yes Benjie was queried for this patient: Yes Risks and benefits of using a controlled substance: were not discussed with pt by me Vital Signs: 05/25/22 13:20 05/25/22 13:30 05/25/22 14:12 Temperature 98.4 F Temperature Source Oral Pulse Rate 82 74 Pulse Rate [Right Radial] 88 Respiratory Rate 15 16 16 Blood Pressure 130/68 134/62 Blood Pressure [Right Arm] 149/69 H Blood Pressure Mean 94 97 Blood Pressure Mean [Right Arm] 95 Blood Pressure Source [Right Arm] Automatic Cuff Blood Pressure Position [Right Arm] Sitting 02 Sat by Pulse Oximetry 94 L 96 95 Oxygen Delivery Method Room Air 05/25/22 14:30 05/25/22 15:06 05/25/22 15:30 Temperature Temperature Source Pulse Rate 71 77 71 Pulse Rate [Right Radial] Respiratory Rate 16 16 Blood Pressure 135/66 156/66 H 145/54 H Blood Pressure [Right Arm] Blood Pressure Mean 98 96 84 Blood Pressure Mean [Right Arm] Blood Pressure Source [Right Arm] Blood Pressure Position [Right Arm] 02 Sat by Pulse Oximetry 95 96 94 L Oxygen Delivery Method 05/25/22 16:00 Temperature Temperature Source Pulse Rate 77 Pulse Rate [Right Radial] Respiratory Rate Blood Pressure 151/53 H Blood Pressure [Right Arm] Blood Pressure Mean 86 Blood Pressure Mean [Right Arm] Blood Pressure Source [Right Arm] Blood Pressure Position [Right Arm] 02 Sat by Pulse Oximetry 94 L Oxygen Delivery Method - Lab Data Lab Results 05/25/22 13:58: WBC 12.0 H, RBC 5.01, Hgb 13.9, Hct 44.8, MCV 89.5, MCH 27.6, MCHC 30.9 L, RDW 14.9, Plt Count 292, MPV 8.8, Neut % (Auto) 86.1 H, Lymph % (Auto) 8.9 L, Marin % (Auto) 3.3, Eos % (Auto) 0.9, Baso % (Auto) 0.8, Neut # (Auto) 10.3 H, Lymph # (Auto) 1.1, Marin # (Auto) 0.4, Eos # (Auto) 0.1, Baso # (Auto) 0.1, Total Counted 100, Neutrophils % (Manual) 89 H, Lymphocytes % (Manual) 8 L, Monocytes % (Manual) 3, Hypersegmented Neuts 1+, Platelet Estimate Normal, Hypochromasia 1+, Ovalocytes 1+ 05/25/22 13:58: Sodium 139, Potassium 3.9, Chloride 103, Carbon Dioxide 26, Anion Gap 13.9, BUN 21 H, Creatinine 0.80, Estimated Creat Clear 48, Estimated GFR 69, Est GFR ( Amer) 84, Glucose 140 H, Calcium 9.6, Total Bilirubin 0.3, AST 31, ALT 19, Alkaline Phosphatase 122, Total Protein 7.9 D, Albumin 4.6, Globulin 3.3 H, Albumin/Globulin Ratio 1.4, Lipase 94 05/25/22 15:03: Urine Color Yellow, Urine Appearance Clear, Urine pH 5.5, Ur Specific [place] 1.010, Urine Protein 1+, Urine Glucose (UA) Negative, Urine Ketones Negative, Urine Blood Negative, Urine Nitrate Negative, Urine Bilirubin Negative, Urine Urobilinogen 0.2, Ur Leukocyte Esterase Negative, Urine WBC Occasional, Ur Squamous Epith Cells 3-5, Urine Bacteria Trace, Hyaline Casts 3-5, Urine Mucus 2+ Result diagrams: 05/25/22 13:58 05/25/22 13:58 Orders (Tests/Meds): ED MEDICATIONS Generic Name Dose Route Start Last Admin Trade Name Freq PRN Reason Stop Dose Admin Ampicillin Sodium/Sulbactam 100 mls @ 200 mls/hr 05/25/22 16:12 Sodium 3 gm/ Sodium Chloride IV 05/25/22 16:13 ONCE ONE Discontinued Medications Generic Name Dose Route Start Last Admin Trade Name Freq PRN Reason Stop Dose Admin Iopamidol 75 ml 05/25/22 14:58 05/25/22 14:59 Iopamidol-
--- NOTE | 2022-05-25 14:02 | CT_ITS ---
PROCEDURE INFORMATION: Exam: CT Abdomen And Pelvis With Contrast Exam date and time: 05/25/2022 2:24 PM Age: 81 years old Clinical indication: Abdominal pain; Prior surgery; Surgery date: 6+ months; Surgery type: Cholecystectomy; Patient HX: Pain w abd mass @ llq; Additional info: Painful abdominal mass TECHNIQUE: Imaging protocol: Computed tomography of the abdomen and pelvis with contrast. Radiation optimization: All CT scans at this facility use at least one of these dose optimization techniques: automated exposure control; mA and/or kV adjustment per patient size (includes targeted exams where dose is matched to clinical indication); or iterative reconstruction. Contrast material: ISOVUE; Contrast volume: 75 ml; Contrast route: IV; COMPARISON: No relevant prior studies available. FINDINGS: Liver: Multiple simple cysts in the liver . No follow-up imaging recommended . Gallbladder and bile ducts: Cholecystectomy Pancreas: Normal. No ductal dilation. Spleen: The spleen is heterogeneous and contains multiple small complex nodules.. Adrenal glands: Normal. No mass. Kidneys and ureters: Normal. No hydronephrosis. Stomach and bowel: Diverticulosis of the colon. No levar diverticulitis Appendix: No evidence of appendicitis. Intraperitoneal space: Unremarkable. No free air. No significant fluid collection. Vasculature: Unremarkable. No abdominal aortic aneurysm. Lymph nodes: Unremarkable. No enlarged lymph nodes. Urinary bladder: Unremarkable as visualized. Reproductive: Unremarkable as visualized. Bones/joints: Unremarkable. No acute fracture. Soft tissues: Small bowel obstruction secondary to a lateral ventral hernia. Series 3, image 54. . Right inguinal hernia contains colon but is not obstructed IMPRESSION: 1. Small bowel obstruction secondary to a lateral ventral hernia. Series 3, image 54. . 2. The spleen is heterogeneous and contains multiple small complex nodules. Differential includes small hemangiomas, infection, metastatic disease. Recommend further evaluation THIS REPORT CONTAINS FINDINGS THAT MAY BE CRITICAL TO PATIENT CARE. The findings were verbally communicated via telephone conference with EMMA GOMEZ at 3:35 PM EDT on 05/25/2022. The findings were acknowledged and understood..
--- NOTE | 2022-05-25 14:09 | PC.NURSE ---
Doppler at bedside.
[2022-05-25 14:17] LABS: Chloride 103 mmol/L (98-107); Potassium 3.9 mmoL/L (3.5-5.1); Sodium 139 mmol/L (136-145)
[2022-05-25 14:20] LABS: Alanine Aminotransferase 19 U/L (12-78); Albumin Level 4.6 g/dl (3.5-5.0); Albumin/Globulin Ratio 1.4 (1.1-1.8); Alkaline Phosphatase 122 U/L (38-126); Anion Gap 13.9 mEq/L (5-15); Aspartate Amino Transferase 31 U/L (14-36); Bilirubin,Total 0.3 mg/dl (0.2-1.3); Blood Urea Nitrogen 21 mg/dl (7-17); Calcium 9.6 mg/dl (8.4-10.2); Carbon Dioxide 26 mmol/L (22.0-30.0); Creatinine Clearance Estimated 48 mL/min (50-200); Estimated Glomerular Filt Rate 69 ml/min (>60); GFR (African American) 84 ML/MIN (>60); Globulin 3.3 g/dL (1.3-3.2); Glucose 140 mg/dl (74-100); Lipase 94 U/L (23-300); Total Protein,Serum 7.9 g/dl (6.3-8.2)
[2022-05-25 14:29] LABS: Basophils # 0.1 K/mm3 (0-0.2); Basophils % 0.8 % (0.1-2.0); Eosinophils # 0.1 K/mm3 (0.0-0.4); Eosinophils % 0.9 % (0.1-12.0); Hematocrit 44.8 % (37.0-47.0); Hemoglobin 13.9 g/dL (12.2-16.2); Lymphocytes # 1.1 K/mm3 (0.7-4.5); Lymphocytes % 8.9 % (10-50); Mean Corpuscular HGB Conc 30.9 g/dL (31.8-35.4); Mean Corpuscular Hemoglobin 27.6 pg (27.0-31.2); Mean Corpuscular Volume 89.5 fl (81-99); Mean Platelet Volume 8.8 fl (7.4-10.4); Monocytes # 0.4 K/mm3 (0.1-1.0); Monocytes % 3.3 % (1.7-9.3); Neutrophils # 10.3 K/mm3 (1.8-7.8); Neutrophils % 86.1 % (37.0-80.0); Platelet Count 292 K/mm3 (142-424); Red Blood Count 5.01 M/mm3 (4.20-5.40); Red Cell Distribution Width 14.9 % (11.5-17.5)
[2022-05-25 14:30] LABS: MANUAL DIFFERENTIAL MANUAL DIFFERENTIAL (MANUAL DIFF)
--- NOTE | 2022-05-25 14:46 | PC.NURSE ---
PT RETURNED FROM RADIOLOGY.
[2022-05-25 14:48] LABS: Hypersegmented Neutrophils 1+; Hypochromasia 1+; Lymphocytes % 8 % (10-50); Monocytes % 3 % (2-9); Neutrophils % 89 % (42-76); Ovalocytes 1+; Platelet Estimate Normal; Total Cells Counted 100
--- NOTE | 2022-05-25 15:09 | PC.NURSE ---
took pt to rest room via wheelchair
[2022-05-25 15:10] LABS: Microscopic, Urine URINE MICROSCOPIC (MICROSCOPIC)
[2022-05-25 15:19] LABS: Appearance,Urine CLEAR (Clear); Bilirubin,Urine Negative (Negative); Blood, Urine Negative (Negative); Color,Urine YELLOW (Yellow); Glucose,Urine (UA) Negative (Negative); Ketones,Urine Negative (Negative); Leukocyte Esterase,Urine Negative (Negative); Nitrate,Urine Negative (Negative); PH,Urine 5.5 (5.0-8.5); Protein,Urine 1+ (Negative); Urobilinogen,Urine 0.2 EU/dl (0.2)
--- NOTE | 2022-05-25 15:33 | PC.NURSE ---
PG DR CLEMENTE
[2022-05-25 15:35] LABS: Bacteria,Urine Trace /lpf; Mucus,Urine 2+ /lpf; WBC,Urine Occasional #/hpf (0-3)
--- NOTE | 2022-05-25 15:55 | PC.NURSE ---
DR CLEMENTE AT PT'S BEDSIDE DOING ASSESSMENT
--- NOTE | 2022-05-25 16:04 | PC.NURSE ---
called house for bed admission
--- NOTE | 2022-05-25 16:08 | PC.NURSE ---
Notified by Dr Vasquez to page the OR team, tumbling machine operator notified immediately. Lanette Bingham, and Pamela all returned call and are aware pt is going to the OR.
--- NOTE | 2022-05-25 16:09 | HMH.GSCON ---
*Admission Date: 05/25/22 *Reason for consult:: Incarcerated hernia *History of present illness: Patient is an 81-year-old female from [place] with no significant previous abdominal surgery other than had laparoscopic cholecystectomy. She states that she was in her usual state of health until this morning at approximately 9:30 AM she felt a sudden onset of painful knot in her left lower abdomen. This was followed by some vomiting. Denies any trauma. She presented to the emergency department this afternoon due to the symptoms and underwent CT scan. This reveals findings of incarcerated hernia in the left lower lateral abdomen containing loop of bowel with resultant bowel obstruction. Surgical consultation was obtained. Review of Systems - Review of Systems Review of systems:: pertinent systems reviewed and negative unless documented below [facility] History I have reviewed the patient's past medical history: Yes Medical History: Reports:: Cancer (Thyroid), Chronic Obstructive Pulmonary Disease (COPD), Gastroesophageal Reflux Disease(GERD), Hypertension Denies:: Diabetes Mellitus Type 1, Diabetes Mellitus Type 2, MRSA *Have you ever received a pneumonia vaccine?: Yes *Have you received a flu vaccine this season?: Yes Other Medical History: Reports: Arthritis, Cataracts, Thyroid Disease Laterality Cases: Bilateral: Tonsillectomy Other Surgeries: Yes: Appendectomy, Cancer Surgery, Colonoscopy, Hysterectomy-Total, Thyroidectomy (partial ) Amputation: No Fractures: No - *Social History Smoking Status: Never smoker Alcohol Intake: never *Occupational Status:: retired Housing: house Household Members: spouse *Travel in the last 8 weeks: None Family Hx:: Cancer, Hypertension Meds Home Medications Medication Instructions Recorded Confirmed Type amlodipine 10 mg tablet 10 mg PO DAILY #90 tab 08/04/19 03/28/22 History losartan 50 mg tablet 50 mg PO DAILY #90 tab 08/04/19 03/28/22 History omeprazole 20 mg capsule,delayed 20 mg PO DAILY #90 cap 08/04/19 03/28/22 History release umeclidinium 62.5 mcg-vilanterol 1 puff IH DAILY #60 each 08/04/19 03/28/22 History 25 mcg/actuation powdr for inhalation Albuterol Sulfate [Proair 1 puff IH QIDP PRN 03/28/22 03/28/22 History Digihaler] Alendronate Sodium [Fosamax 70mg 70 mg PO WEEKLY 03/28/22 03/28/22 History Tablet] Colestipol HCl 1 gm PO DAILY 03/28/22 03/28/22 History Levothyroxine Sodium 125 mcg PO DAILY 03/28/22 03/28/22 History [Levothyroxine 125mcg (0.125mg) Tab] Rosuvastatin Calcium 10 mg PO HS 03/28/22 03/28/22 History Calcium Carbonate/Vitamin D3 2 each PO BID 30 Days #120 tab 03/29/22 Rx [Calcium 500 mg Chewable Tablet] Magnesium Oxide 400 mg PO BID #60 tab 03/29/22 Rx Allergies Allergy/AdvReac Type Severity Reaction Status Date / Time No Known Allergies Allergy Verified 08/04/19 08:15 Exam Vital signs and Labs for Last 24 Hours: Temp Pulse Resp BP Pulse Ox 98.4 F 77 16 151/53 H 94 L 05/25/22 13:20 05/25/22 16:00 05/25/22 15:06 05/25/22 16:00 05/25/22 16:00 Laboratory Results - last 24 hr 05/25/22 13:58: WBC 12.0 H, RBC 5.01, Hgb 13.9, Hct 44.8, MCV 89.5, MCH 27.6, MCHC 30.9 L, RDW 14.9, Plt Count 292, MPV 8.8, Neut % (Auto) 86.1 H, Lymph % (Auto) 8.9 L, [place] % (Auto) 3.3, Eos % (Auto) 0.9, Baso % (Auto) 0.8, Neut # (Auto) 10.3 H, Lymph # (Auto) 1.1, [place] # (Auto) 0.4, Eos # (Auto) 0.1, Baso # (Auto) 0.1, Total Counted 100, Neutrophils % (Manual) 89 H, Lymphocytes % (Manual) 8 L, Monocytes % (Manual) 3, Hypersegmented Neuts 1+, Platelet Estimate Normal, Hypochromasia 1+, Ovalocytes 1+ 05/25/22 13:58: Sodium 139, Potassium 3.9, Chloride 103, Carbon Dioxide 26, Anion Gap 13.9, BUN 21 H, Creatinine 0.80, Estimated Creat Clear 48, Estimated GFR 69, Est GFR ( Amer) 84, Glucose 140 H, Calcium 9.6, Total Bilirubin 0.3, AST 31, ALT 19, Alkaline Phosphatase 122, Total Protein 7.9 D, Albumin 4.6, Globulin 3.3 H, Albumin/Globulin Rat
--- NOTE | 2022-05-25 16:33 | ECG_ITS ---
APPROVED REPORT Exam: Resting ECG HR:80 bpm ECG Measurements Heart Rate 80 AXES VT 170 P 61 QRSd 71 QRS -6 QT 359 T 41 QTc 396 Conclusion SINUS RHYTHM POSSIBLE LEFT ATRIAL ENLARGEMENT [-0.1mV P-WAVE IN V1/V2] LOW QRS VOLTAGE IN PRECORDIAL LEADS [QRS DEFLECTION < 1.0 mV IN CHEST LEADS] MODERATE ST DEPRESSION [0.05+ mV ST DEPRESSION] ABNORMAL ECG UNCONFIRMED REPORT Electronically signed by : Hammad Queen MD 05/26/2022 14:28:43
--- NOTE | 2022-05-25 16:35 | PC.NURSE ---
SX TEAM TAKING PATIENT
--- NOTE | 2022-05-25 16:40 | PC.NURSE ---
OR team taking pt to surgery
[2022-05-25 16:46] LABS: Coronavirus 19, PCR Not Detected (NotDetected); Influenza A, PCR Not Detected (NotDetected); Influenza B, PCR Not Detected (NotDetected)
--- NOTE | 2022-05-25 17:32 | P.PN_ITS ---
[facility] Anesthesia Checklist - Structural Data Admitted From: Emergency Dept Planned Operative Procedure/s: hernia repair Consent for Planned Operative Procedure(s) Verified: Yes - Airway Assessment C-Spine Mobility Assessed: Yes TMJ Mobility Assessed: Yes Dentition: Good Dentition - Neurological Assessment Level of Consciousness: Awake, Alert, Appropriate - Anesthesia Plan Anesthesia Risk discussed: Yes Anesthesia Plan: Verified ASA Class: II Anesthesia Type: General [facility] History I have reviewed the patient's past medical history: Yes Medical History: Reports:: Cancer (Thyroid), Chronic Obstructive Pulmonary Disease (COPD), Gastroesophageal Reflux Disease(GERD), Hypertension Denies:: Diabetes Mellitus Type 1, Diabetes Mellitus Type 2, MRSA *Have you ever received a pneumonia vaccine?: Yes *Have you received a flu vaccine this season?: Yes Other Medical History: Reports: Arthritis, Cataracts, Thyroid Disease Anesthesia experience/problems:: none Laterality Cases: Bilateral: Tonsillectomy Other Surgeries: Yes: Appendectomy, Cancer Surgery, Colonoscopy, Hysterectomy- Total, Thyroidectomy (partial ) Amputation: No Fractures: No - *Social History Smoking Status: Never smoker Alcohol Intake: never Substance Use Type: denies use *Occupational Status:: retired Housing: house Household Members: spouse *Travel in the last 8 weeks: None Family Hx:: Cancer, Hypertension
--- NOTE | 2022-05-25 18:19 | HMH.OPNOTE ---
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 She states that she was in her usual state of health until this morning at approximately 9:30 AM she felt a sudden onset of painful knot in her left lower abdomen. This was followed by some vomiting. Denies any trauma. She presented to the emergency department this afternoon due to the symptoms and underwent CT scan. This reveals findings of incarcerated hernia in the left lower lateral abdomen containing loop of bowel with resultant bowel obstruction. Surgical consultation was obtained. Patient was seen and examined in the emergency department. She had a tender firm knot in the left lower abdomen which was unable to be reduced consistent with incarcerated and possibly strangulated lateral ventral hernia. Arrangements were made for emergent surgery with repair and possible bowel resection. Operative findings:: She had a small, approximately 2 cm, defect in the left lateral abdomen. After the patient was prepped and draped the hernia spontaneously reduced. She also was noted to have a left as well as a right inguinal hernia. Operative note:: Patient was taken to the operating room. She was positioned in supine position. General anesthesia was induced via endotracheal tube. Ramon catheter was placed. Patient was examined prior to prepping and draping she had a firm subcutaneous mass in the left lower quadrant which was unable to be reduced. Patient was then prepped and draped. At this time palpation was carried out and the hernia had reduced. There was minimal palpable hernia sac at the site. Decision was made to proceed with laparoscopy to inspect the reduced bowel for viability and discern the nature of the hernia. Through a 1 mm incision in the left subcostal area Veress needle was inserted. CO2 pneumoperitoneum was achieved to 15 mmHg. 5 mm trocar was inserted at the umbilical area. Hernia defect was noted in the left lower abdomen. There was no evidence of any hernia contents at this time as it had reduced. Additional 5 mm trocar was inserted above the umbilical area. Inspection was carried out of the entire abdomen. There was some mildly irritated bowel but no evidence of any obvious necrosis. Please note that the entirety of the bowel was not able to be run. She was noted to have a hernia defect in the left inguinal area as well as the right inguinal area with no herniated contents. Plan was made for repair with Ventralex mesh. Small incision was made overlying the hernia site. 12 mm trocar was inserted. Medium sized Bard Ventralex mesh was inserted through the 12 mm trocar. Trocar was then removed. Mesh covered the defect with good overlap. It was secured around its periphery with the OPTi fix kellie . CO2 pneumoperitoneum was then evacuated. The tails of the mesh were sutured superiorly and inferiorly to the fascia with 2-0 PDS sutures. Tails of the mesh were then cut flush with the fascia. Fascia was closed over the mesh with a 0 Ethibond suture. CO2 pneumoperitoneum was reestablished and completion laparoscopy revealed good repair of the mesh. Once again inspection of the bowel was carried out and noted. Have some minor irritation but good viability. Trochars were then removed as CO2 pneumoperitoneum was evacuated. Skin incisions closed with 4-0 Monocryl subcuticular fashion. Steri-Strips and dressings were applied. Condition: stable Disposition: PACU Complicati
--- NOTE | 2022-05-25 18:29 | HMH.ANESI ---
[facility] Anesthesia Record Part I Intake, IV Amount: 1,400 Estimated blood loss (mL): 0 Urine output (mL): 250 Blood Pressure: 133/95 SaO2: 97 Pulse Rate: 80 Respiratory Rate: 12 Temperature: 97.4 F Patient is:: Awake, Stable Stable to PACU at:: 18:25
--- NOTE | 2022-05-25 18:58 | PC.NURSE ---
Pt arrived to the floor at this time.
--- NOTE | 2022-05-25 19:08 | PC.NURSE ---
1853-detailed report called to GRISELDA Garcia 1856-pt transported to 2nd floor room 215 via hospital bed w/yordy rails up and left in care of GRISELDA Garcia with bed locked in lowest position, vss, pt stable
--- NOTE | 2022-05-25 19:45 | PC.NURSE ---
pt password - aline
[2022-05-25 19:47] LABS: Microscopic,Cath URINE MICROSCOPIC (MICROSCOPIC)
[2022-05-25 19:55] LABS: Appearance,Urine/Cath CLEAR (Clear); Bilirubin,Cath Negative (Negative); Blood, Urine/Cath Negative (Negative); Color,Urine/Cath YELLOW (Yellow); Glucose,Urine/Cath (UA) Negative (Negative); Ketones,Urine/Cath Negative (Negative); Leukocyte Esterase,Cath Negative (Negative); Nitrate,Cath Negative (Negative); PH,Urine/Cath 5.5 (5.0-8.5); Protein,Urine/Cath TRACE (Negative); Specific Gravity, Urine/Cath 1.015 (1.005-1.030); Urobilinogen,Cath 0.2 EU/dl (0.2)
[2022-05-25 20:03] LABS: Squamous Epithelial Ur./Cath Occasional #/hpf (0-5); WBC,Urine/Cath Occasional #/hpf (0-3)
[2022-05-26] VITALS (7 sets, daily range): BP systolic 91–147; BP diastolic 54–91; PULSE 66–84; RESP 16–18; TEMP 36.4–37.2; O2SAT 90–96; BMI 29.4
--- NOTE | 2022-05-26 04:37 | PC.NURSE ---
pt has had no c/o throughout the night, denies any pain. she is a&oX4. 3 incision site dressings on abdomen, 1 steri strip. 2 of the dressings have a very small amount of blood, with no changes t/o this shift. the other one and the steri strip are c/d/i. she has been up to the bathroom with a standby assist 1 time. urine is clear/yellow. pt requested the SCD's to be removed this shift. she remains on clear liquid diet and has tolerated well. 20G IV in left wrist is patent and flushes well. at bedside. call light within reach, no needs at this time.
--- NOTE | 2022-05-26 07:00 | HMH.GSPN ---
Subjective Narrative: Patient had presented to the emergency department yesterday afternoon with onset of acute incarceration of lateral ventral hernia (Spigelian hernia) with acute bowel obstruction. This was unable to be reduced in the emergency department or in the operating room after induction of anesthesia. However, once she was prepped and draped the hernia spontaneously reduced. Therefore she underwent laparoscopy with laparoscopic repair of hernia. This morning she states that she is feeling 100% better . She denies nausea. No pain at the hernia site. She is hungry. Progress Note: A&P Assessment and Plan for All Diagnoses:: She has clear liquids this morning. I will go ahead and advance her to full liquids. If she tolerates this may be able to be discharged this afternoon. Exam Vital signs and Labs for Last 24 Hours: Temp Pulse Resp BP Pulse Ox 97.8 F 77 16 136/71 90 L 05/26/22 04:00 05/26/22 04:00 05/26/22 04:00 05/26/22 04:00 05/26/22 04:00 Laboratory Results - last 24 hr 05/25/22 13:58: WBC 12.0 H, RBC 5.01, Hgb 13.9, Hct 44.8, MCV 89.5, MCH 27.6, MCHC 30.9 L, RDW 14.9, Plt Count 292, MPV 8.8, Neut % (Auto) 86.1 H, Lymph % (Auto) 8.9 L, [place] % (Auto) 3.3, Eos % (Auto) 0.9, Baso % (Auto) 0.8, Neut # (Auto) 10.3 H, Lymph # (Auto) 1.1, [place] # (Auto) 0.4, Eos # (Auto) 0.1, Baso # (Auto) 0.1, Total Counted 100, Neutrophils % (Manual) 89 H, Lymphocytes % (Manual) 8 L, Monocytes % (Manual) 3, Hypersegmented Neuts 1+, Platelet Estimate Normal, Hypochromasia 1+, Ovalocytes 1+ 05/25/22 13:58: Sodium 139, Potassium 3.9, Chloride 103, Carbon Dioxide 26, Anion Gap 13.9, BUN 21 H, Creatinine 0.80, Estimated Creat Clear 48, Estimated GFR 69, Est GFR ( Amer) 84, Glucose 140 H, Calcium 9.6, Total Bilirubin 0.3, AST 31, ALT 19, Alkaline Phosphatase 122, Total Protein 7.9 D, Albumin 4.6, Globulin 3.3 H, Albumin/Globulin Ratio 1.4, Lipase 94 05/25/22 15:03: Urine Color Yellow, Urine Appearance Clear, Urine pH 5.5, Ur Specific [place] 1.010, Urine Protein 1+, Urine Glucose (UA) Negative, Urine Ketones Negative, Urine Blood Negative, Urine Nitrate Negative, Urine Bilirubin Negative, Urine Urobilinogen 0.2, Ur Leukocyte Esterase Negative, Urine WBC Occasional, Ur Squamous Epith Cells 3-5, Urine Bacteria Trace, Hyaline Casts 3-5, Urine Mucus 2+ 05/25/22 16:08: SARS-CoV-2 (PCR) Not detected, Influenza A Untype (PCR) Not detected, Influenza Type B (PCR) Not detected 05/25/22 17:20: Urine Color Yellow, Urine Appearance Clear, Urine pH 5.5, Ur Specific [place] 1.015, Urine Protein Trace, Urine Glucose (UA) Negative, Urine Ketones Negative, Urine Blood Negative, Urine Nitrate Negative, Urine Bilirubin Negative, Urine Urobilinogen 0.2, Ur Leukocyte Esterase Negative, Urine WBC Occasional, Ur Squamous Epith Cells Occasional, Ur Renal Epithelial Cell 5-10 I & O for Last 24 hours: Intake & Output 05/23/22 05/24/22 05/25/22 05/26/22 11:59 11:59 11:59 11:59 Intake Total 1640 / 1640 Output Total 300 / 300 Balance 1340 / 1340 Weight 150 lb 0.005 oz - *Routine Abdominal Exam Present: soft. Absent: tenderness
--- NOTE | 2022-05-26 07:22 | HMH.PHAVTE ---
[facility] Pharmacy VTE Monitoring - Patient Demographics Admission date: 05/25/22 Report Date: 05/26/22 Time: 07:22 Allergies/Adverse Reactions: Patient Allergies No Known Allergies Allergy (Verified 08/04/19 08:15) Height: 1.52 m Weight: 68.039 kg Patient Problems: Current Active Problems Incarcerated hernia (Acute) Small bowel obstruction (Acute) - VTE Risk Labs: VTE Related Lab Results Hgb 13.9 g/dL (12.2-16.2) 05/25/22 13:58 Hct 44.8 % (37.0-47.0) 05/25/22 13:58 Plt Count 292 K/mm3 (142-424) 05/25/22 13:58 BUN 21 mg/dl (7-17) H 05/25/22 13:58 Creatinine 0.80 mg/dl (0.52-1.04) 05/25/22 13:58 Estimated Creat Clear 48 mL/min (50-200) 05/25/22 13:58 VTE Risk Level: Low Risk - Prophylaxis VTE Prophylaxis Ordered?: Yes Types of VTE Prophylaxis: TEDS Knee High Location of Applied Device: Bilateral Lower Extremeties
--- NOTE | 2022-05-26 07:38 | HMH.PHAINT ---
MEDICATION RECONCILIATION COMPLETED ON PATIENT USING EXTERNAL FILL HISTORY FROM PHARMACY. -ENRIQUE ESPANA, LEILANID
--- NOTE | 2022-05-26 09:43 | PC.NURSE ---
SRNA NOTE: Walked into room to ask pt if she wanted to get cleaned up for the day. Pt. stated No honey, i took one before i came in Will check back in with Pt. SRNA, Esther Mcdowell
--- NOTE | 2022-05-26 10:55 | PC.NURSE ---
patient previous iv infiltrated. attempted to restart iv at this time, 2 unsuccessful sticks. patient tolerated well. gauze and coban placed around sites. no complaints or concerns at this time.
--- NOTE | 2022-05-26 13:45 | HMH.DCSUM ---
General - General Admission date:: 05/25/22 Discharge date: 05/26/22 HPI HPI: Patient is an 81-year-old female from [place] with no significant previous abdominal surgery other than had laparoscopic cholecystectomy and . She states that she was in her usual state of health until the morning of 05/25/2022 when she felt a sudden onset of painful knot in her left lower abdomen. This was followed by some vomiting. Denies any trauma. She presented to the emergency department due to the symptoms and underwent CT scan. This reveals findings of incarcerated hernia in the left lower lateral abdomen containing loop of bowel with resultant bowel obstruction. Surgical consultation was obtained. Patient was seen and examined in the emergency department. She had a tender firm knot in the left lower abdomen which was unable to be reduced consistent with incarcerated and possibly strangulated lateral ventral hernia. Arrangements were made for emergent surgery with repair and possible bowel resection. Hospital Course Hospital Course: Patient was seen and examined in the emergency department. Arrangements were made for emergent repair of incarcerated with possibly strangulated hernia. Once she was under anesthesia in the operating room the area was still palpable and quite firm and unable to be reduced. Plan was made to proceed with open repair. However, after prepping and draping it was noted that the hernia had reduced. Decision for open repair was altered and diagnostic laparoscopy was performed to assess the involved small bowel. Hernia was then repaired laparoscopically with medium sized Bard Ventralex mesh. She was found to have a small, approximately 2 cm, defect in the left lateral abdomen. Patient also was noted to have bilateral inguinal hernias without herniated contents. Please see operative dictation for complete details. She was admitted postoperatively for convalescence and observation given the fact that she had an acute bowel obstruction. Overnight she did well and did not require any pain medication. She tolerated a clear liquid diet without difficulty. She had no nausea. This was rapidly advanced to a full liquid diet. She had issues with her IV infiltrating. Consideration was being given for possible intramuscular Unasyn. However given the need for additional doses with this manner administration she did have successful IV placed for additional IV Unasyn. Her diet was advanced to a bland diet. Arrangements were made for discharge home in the evening of postoperative day #1. Objective Vital signs: Temp Pulse Resp BP Pulse Ox 98.4 F 70 18 120/54 L 96 05/26/22 11:30 05/26/22 11:30 05/26/22 11:30 05/26/22 11:30 05/26/22 08:00 Results Labs on day of discharge: Labs from last 24 hours 05/25/22 05/25/22 05/25/22 17:20 16:08 15:03 WBC RBC Hgb Hct MCV MCH MCHC RDW Plt Count MPV Neut % (Auto) Lymph % (Auto) [place] % (Auto) Eos % (Auto) Baso % (Auto) Neut # (Auto) Lymph # (Auto) [place] # (Auto) Eos # (Auto) Baso # (Auto) Total Counted Neutrophils % (Manual) Lymphocytes % (Manual) Monocytes % (Manual) Hypersegmented Neuts Platelet Estimate Hypochromasia Ovalocytes Sodium Potassium Chloride Carbon Dioxide Anion Gap BUN Creatinine Estimated Creat Clear Estimated GFR Est GFR ( Amer) Glucose Calcium Total Bilirubin AST ALT Alkaline Phosphatase Total Protein Albumin Globulin Albumin/Globulin Ratio Lipase Urine Color Yellow Yellow Urine Appearance Clear Clear Urine pH 5.5 5.5 Ur Specific [place] 1.015 1.010 Urine Protein Trace 1+ Urine Glucose (UA) Negative Negative Urine Ketones Negative Negative Urine Blood Negative Negative Urine Nitrate Negative Negative Urine Bilirubin Negat
--- NOTE | 2022-05-26 14:35 | P.PN_ITS ---
[facility] Anesthesia Record Part II Discharge Time: 18:55 Destination: Medical Surgical Department PACU nurse assessment reviewed?: Yes Patient Condition:: Good Anesthesia Complications:: None Swallowing reflex intact?: Yes Cyanosis?: No Blood Pressure: 145/67 Pulse Rate: 71 Temperature: 98.1 F Mental Status: Alert & Oriented Pain level:: 0 Nausea and/or vomitting:: None Intake, IV Amount: 0
--- NOTE | 2022-05-26 14:56 | PC.NURSE ---
SRNA Note: Checked back in with pt regarding bath today. Pt. had discharge orders in and wants to wait till she gets home.
--- NOTE | 2022-05-26 15:16 | HMH.PHAINT ---
DISCHARGE MEDICATION COUNSELING PROVIDED. DISCUSSED SHORT-COURSE AUGMENTIN (TWICE DAILY, RECOMMEND TAKING WITH FOOD, MAY CAUSE UPSET STOMACH, NAUSEA, VOMITING, DIARRHEA, RECOMMEND PROBIOTICS OR YOGURT WITH ACTIVE CULTURES) AND NORCO (ONE TO TWO TABLETS EVERY 6 HOURS NEEDED FOR PAIN, SEDATION RISK, MAY CAUSE UPSET STOMACH, CONSTIPATION) PRESCRIPTIONS. PATIENT VERBALIZED NO QUESTIONS AT THIS TIME.
--- NOTE | 2022-05-26 19:41 | PC.NURSE ---
PT WAS D/C AT 1939
--- NOTE | 2022-05-27 13:45 | CARE MANAGER ---
Contacted patient related to hospital discharge. Patient states that she hasn't picked up her medications yet because they haven't notified her that they are ready. We discussed that they should be and she should call [facility] to ask them as she needs antibiotic. She denies any other questions or concerns and is aware of follow up appointments. GRISELDA Wisdom
== END 2022-05-26 19:40 | disposition home or self-care (01) | DRG 355 ==
LOC: ER 15:38 → SDC 16:57 → 2ND 17:11
PROVIDERS: Admitting Provider Internal Medicine Adolescent Medicine; Emergency Provider Emergency Medicine; PCP Nurse Practitioner Family; Referring Provider Surgery; Visit Provider Internal Medicine Adolescent Medicine
PROC: 0WUF4JZ Supplement Abdominal Wall with Synthetic Substitute, Percutaneous Endoscopic Approach (ICD-10-PCS; CPT 49000; principal; 2022-05-25 16:30)
DX: K43.6 Other and unspecified ventral hernia with obstruction, without gangrene (principal); Z85.850 Personal history of malignant neoplasm of thyroid; J44.9 Chronic obstructive pulmonary disease, unspecified; K21.9 Gastro-esophageal reflux disease without esophagitis; I10 Essential (primary) hypertension; M19.90 Unspecified osteoarthritis, unspecified site
CPT/HCPCS: 49652; 74177; 80053; 81001; 83690; 85007; 85025; 93005; 99285; C1781; C9803; J2405; J2710; Q9967; U0003; U0005

== ENCOUNTER 2024-06-25 09:59 | Inpatient (IN) | payer MEDICARE, BC, SELFPAY ==
[2024-06-25] VITALS (15 sets, daily range): BP systolic 118–135; BP diastolic 49–64; PULSE 82–95; RESP 18–22; TEMP 36.6–37.1; O2SAT 89–96; BMI 30.4; BMI 30.6
--- NOTE | 2024-06-25 10:11 | ECG_ITS ---
APPROVED REPORT Exam: Resting ECG HR:91 bpm ECG Measurements Heart Rate 91 AXES DC 144 P 65 QRSd 94 QRS 37 QT 298 T 41 QTc 347 Conclusion SINUS RHYTHM WITH OCCASIONAL VENTRICULAR PREMATURE COMPLEXES LOW QRS VOLTAGE IN PRECORDIAL LEADS [QRS DEFLECTION < 1.0 mV IN CHEST LEADS] NONSPECIFIC T-WAVE ABNORMALITY BORDERLINE ECG Electronically signed by : SILVIA COYLE, 06/25/2024 15:59:27
--- NOTE | 2024-06-25 10:29 | XR_ITS ---
PROCEDURE INFORMATION: Exam: XR Chest Exam date and time: 06/25/2024 10:30 AM Age: 83 years old Clinical indication: Shortness of breath; Additional info: SOA TECHNIQUE: Imaging protocol: Radiologic exam of the chest. Views: 2 views. Total images: 2 COMPARISON: CT ABDOMEN PELVIS W CON 05/25/2022 2:24 PM FINDINGS: Lungs: Atelectatic and/or early infiltrative changes noted within both lung bases. Bilateral hyperinflation is present. Pleural spaces: No evidence of pneumothorax. No pleural effusions. Heart/Mediastinum: The heart is not enlarged. Vasculature: Mild atherosclerotic disease. Bones/joints: Slight rightward curvature of the thoracic spine with degenerative changes. IMPRESSION: 1. Atelectatic and/or early infiltrative changes noted within both lung bases. 2. Bilateral hyperinflation is present.
[2024-06-25] MEDS: IPRATROPIUM/ALBUTEROL 3 ML NEB IH ×2 (10:32→18:15)
[2024-06-25 10:34] LABS: Coronavirus 19, PCR Not Detected (NotDetected); Influenza A, PCR Not Detected (NotDetected); Influenza B, PCR Not Detected (NotDetected)
[2024-06-25 10:39] LABS: Basophils # 0.1 K/mm3 (0-0.2); Basophils % 0.5 % (0.1-2.0); Chloride 105 mmol/L (98-107); Eosinophils # 0.1 K/mm3 (0.0-0.4); Eosinophils % 0.9 % (0.1-12.0); Hematocrit 43.7 % (37.0-47.0); Hemoglobin 13.2 g/dL (12.2-16.2); Lymphocytes # 1.2 K/mm3 (0.7-4.5); Lymphocytes % 8.1 % (10-50); Mean Corpuscular HGB Conc 30.2 g/dL (31.8-35.4); Mean Corpuscular Hemoglobin 27.3 pg (27.0-31.2); Mean Corpuscular Volume 90.4 fl (81-99); Monocytes # 0.9 K/mm3 (0.1-1.0); Monocytes % 6.4 % (1.7-9.3); Neutrophils # 12.3 K/mm3 (1.8-7.8); Neutrophils % 84.2 % (37.0-80.0); Platelet Count 198 K/mm3 (142-424); Red Blood Count 4.83 M/mm3 (4.20-5.40); Red Cell Distribution Width 15.2 % (11.5-17.5); White Blood Count 14.6 K/mm3 (4.8-10.8)
[2024-06-25 10:40] LABS: Albumin Level 4.2 g/dl (3.5-5.0); Sodium 140 mmol/L (136-145)
[2024-06-25 10:42] LABS: Blood Urea Nitrogen 16 mg/dl (7-17); Creatinine Clearance Estimated 48 mL/min (50-200); Estimated Glomerular Filt Rate 69 ml/min (>60); GFR (African American) 83 ML/MIN (>60)
[2024-06-25 10:43] LABS: Alanine Aminotransferase 19 U/L (12-78); Albumin/Globulin Ratio 1.3 (1.1-1.8); Alkaline Phosphatase 121 U/L (38-126); Aspartate Amino Transferase 33 U/L (14-36); Bilirubin,Total 1.2 mg/dl (0.2-1.3); Carbon Dioxide 24 mmol/L (22.0-30.0); Globulin 3.3 g/dL (1.3-3.2); Glucose 103 mg/dl (74-100); Total Protein,Serum 7.5 g/dl (6.3-8.2)
[2024-06-25 10:48] LABS: VBG Base Excess -1.6 mmol/L (-2.4-2.3); VBG HCO3 23.5 mmol/L (23-30); VBG Oxygen Saturation 77.9 % (50-70); VBG PCO2 40.6 mmol/L (35-51); VBG PH 7.38 mmol/L (7.31-7.41); VBG PO2 44.2 mmol/L (28-40); VBG Total CO2 24.7 mmol/L (23-27)
[2024-06-25 10:50] LABS: Lactate Venous 2.5 mmol/L (0.4-2.0)
[2024-06-25 11:05] LABS: Troponin I 0.01 ng/ml (0.00-0.034)
--- NOTE | 2024-06-25 12:27 | HMH.EDCP ---
Discharge Plan Disposition Patient Disposition: Admitted Chief Complaint: Shortness of Breath/Dyspnea Prescriptions Prescriptions: No Action losartan 50 mg tablet 50 mg PO DAILY Qty: 90 omeprazole 20 mg capsule,delayed release(DR/EC) 20 mg PO DAILY Qty: 90 Patient Comments: TAKE 1 CAPSULE BY MOUTH ONCE DAILY levothyroxine 125 MCG tablet 125 mcg PO DAILY colestipol 1 GM tablet 1 g PO DAILY rosuvastatin 10 MG tablet 10 mg PO HS albuterol sulfate 90 MCG aero powdr breath act w/sensor 1 puff IH Q4HP PRN (Reason: Shortness Of Breath) alendronate 70 MG tablet 70 mg PO WEEKLY amlodipine 10 MG tablet 10 mg PO DAILY calcitriol 0.25 MCG capsule 0.25 mcg PO MOWEFR calcium carbonate-vitamin D3 1 EACH tablet,chewable 2 each PO BID magnesium oxide 400 MG tablet 400 mg PO BID hydrocodone-acetaminophen 1 TAB tablet 1 - 2 tab PO Q6HP PRN (Reason: Moderate Pain) Qty: 17 0RF Referrals Follow up/Referrals: Dinora Quevedo MD [Primary Care Provider] - See instructions Clinical Impressions Clinical Impression: Sepsis, Hypocalcemia, Pneumonia, COPD (chronic obstructive pulmonary disease) Print Language Print Language: Maori Discharge ED Provider: Kevon Maier General Chief Complaint: Shortness of Breath/Dyspnea Stated Complaint: cough, sore throat, congestion Time Seen by Provider: 06/25/24 10:45 Mode of Arrival: Ambulatory Source of Information: Patient Limitations: No Limitations Description of Symptoms (Recalled from ER Triage Doc. by RN): c/o cough with yellow sputum and soa with cough for 3 days, woke up with her hip hurting, no injury History of Present Illness HPI narrative: Patient is a 83-year-old female previous smoker with past medical history of hypertension who presents emergency department for evaluation of shortness of breath and cough. Onset was acute, over the last 3 days. No chest pain, no abdominal pain. Due to persistent symptoms she presents here for continued evaluation. With respect to hip pain onset was acute, she woke up with it, left-sided, no trauma. No other acute complaints. Related Data Home Medications ?Medication ?Instructions ?Recorded ?Confirmed losartan 50 mg tablet 50 mg PO DAILY Hypertension #90 08/04/19 06/18/22 tabs omeprazole 20 mg capsule,delayed 20 mg PO DAILY GERD #90 caps 08/04/19 06/18/22 release albuterol sulfate 90 mcg/actuation 1 puff inhalation Q4HP PRN 03/28/22 06/18/22 breath activated powder Shortness Of Breath inhaler,sensor alendronate 70 mg tablet 70 mg PO WEEKLY Osteoporosis 03/28/22 06/18/22 colestipol 1 gram tablet 1 g PO DAILY Cholesterol 03/28/22 06/18/22 levothyroxine 125 mcg tablet 125 mcg PO DAILY THYROID 03/28/22 06/18/22 rosuvastatin 10 mg tablet 10 mg PO HS Cholesterol 03/28/22 06/18/22 amlodipine 10 mg tablet 10 mg PO DAILY Hypertension 05/26/22 06/18/22 calcitriol 0.25 mcg capsule 0.25 mcg PO MOWEFR Supplement 05/26/22 06/18/22 calcium carbonate 500 mg-vitamin 2 each PO BID Supplement 05/26/22 06/18/22 D3 2.5 mcg (100 unit) chewable tablet magnesium oxide 400 mg PO BID Supplement 05/26/22 06/18/22 Previous Rx's ?Medication ?Instructions ?Recorded hydrocodone 5 mg-acetaminophen 325 1 - 2 tab PO Q6HP PRN Moderate 05/26/22 mg tablet Pain #17 tabs Allergies Allergy/AdvReac Type Severity Reaction Status Date / Time No Known Allergies Allergy Verified 06/18/22 08:53 [facility] Disclaimer: The information contained in this section may have been updated after the patient was seen, as this information can be updated by other users. Medical History (Updated 06/25/24 @ 13:51 by Kevon Maier MD) Small bowel obstruction Incarcerated hernia Surgical History (Updated 06/18/22 @ 09:01 by BETHEL Doherty) History of hernia repair Social History Smoking Status: Former smoker tobacco type: cigarettes alcohol intake: never substance use type: denies use current occupational status: retired Travel in the last 8 weeks: None household members: spouse housing: house ROS Obtained: Yes Systems reviewed as appropriate & no additional complaints except as documented Physical Exam General General appearance: alert and in no apparent distress Head Head exam: atraumatic and normocephalic Eye Eye exam: Present PERRL and EOMI ENT ENT exam: Present mucous membranes moist Neck Neck exam: Present normal inspection Chest Chest inspection: Present normal inspection and symmetric chest wall rise Respiratory Respiratory exam: Present respiratory distress, wheezes (Diffuse, expiratory phase) and prolonged expiratory phase; Absent normal lung sounds bilaterally Cardiovascular Cardiovascular exam: Present regular rate and normal rhythm Abdominal Exam Abdominal exam: Present soft; Absent tenderness Extremities Exam Extremities exam: Present normal inspection and other (5 out of 5 strength bilateral lower extremities at the hip. No overlying redness or bruising left hip. No asymmetric swelling of the lower extremities) Neurological Exam Neurological exam: Present alert Psychiatric Psychiatric exam: Present normal affect Skin Skin exam: Present warm and dry HEART Score HEART Score HEART Score assessment performed?: Yes History (anamnesis): Slightly suspicious ECG: Non-specific disturbance Age: >65 years Risk factors: 1-2 risk factors Troponin: </= normal limit HEART Score: 4 Critical Care Critical Care Time Critical Care Time: No Medical Decision Making Benjie Inquiry Pt receiving controlled substance: No Vital Signs Vital Signs: 06/25/24 10:00 06/25/24 10:01 06/25/24 13:07 Temperature 98.2 F Temperature Source Oral Pulse Rate 82 Pulse Rate [Left Radial] 95 H Respiratory Rate 22 Blood Pressure 126/64 Blood Pressure [Right Arm] 130/60 Blood Pressure Mean [Right Arm] 83 Blood Pressure Source [Right Arm] Automatic Cuff Blood Pressure Position [Right Arm] Sitting 02 Sat by Pulse Oximetry 89 L 95 96 Oxygen Delivery Method Room Air Nasal Cannula Room Air Oxygen Flow Rate (LPM) 3 Lab Data Labs: Lab Results 06/25/24 10:13: SARS-CoV-2 (PCR) Not detected, Influenza A Untype (PCR) Not detected, Influenza Type B (PCR) Not detected 06/25/24 10:20: WBC 14.6 H, RBC 4.83, Hgb 13.2, Hct 43.7, MCV 90.4, MCH 27.3, MCHC 30.2 L, RDW 15.2, Plt Count 198, MPV 9.0, Neut % (Auto) 84.2 H, Lymph % (Auto) 8.1 L, [place] % (Auto) 6.4, Eos % (Auto) 0.9, Baso % (Auto) 0.5, Neut # (Auto) 12.3 H, Lymph # (Auto) 1.2, [place] # (Auto) 0.9, Eos # (Auto) 0.1, Baso # (Auto) 0.1, Sodium 140, Potassium 4.0, Chloride 105, Carbon Dioxide 24, Anion Gap 15.0, BUN 16, Creatinine 0.80, Estimated Creat Clear 48, Estimated GFR 69, Est GFR ( Amer) 83, Glucose 103 H, Calcium 8.0 L, Total Bilirubin 1.2, AST 33, ALT 19, Alkaline Phosphatase 121, Troponin I 0.01, Total Protein 7.5, Albumin 4.2, Globulin 3.3 H, Albumin/Globulin Ratio 1.3 06/25/24 10:37: VBG pH 7.38, VBG pCO2 40.6, VBG pO2 44.2 H, VBG HCO3 23.5, VBG Total CO2 24.7, VBG O2 Saturation 77.9 H, VBG Base Excess -1.6, VBG Lactic Acid 2.5 H 06/25/24 10:20 06/25/24 10:20 Response Orders (Tests/Meds): ED MEDICATIONS Generic Name Dose Route Start Last Admin Trade Name Freq PRN Reason Stop Dose Admin Calcium Gluconate/Sodium Chloride 2 gm in 100 mls @ 50 mls/hr 06/25/24 12:26 Calcium Gluconate 2,000mg/100ml Nacl Premix IV 06/25/24 14:25 ONCE ONE Discontinued Medications Generic Name Dose Route Start Last Admin Trade Name Freq PRN Reason Stop Dose Admin Albuterol/Ipratropium 3 ml 06/25/24 10:30 06/25/24 10:32 Ipratropium/Albuterol 3 Ml Neb 06/25/24 10:31 3 ml ONCE ONE Administration Albuterol/Ipratropium 6 ml 06/25/24 12:23 06/25/24 12:43 Ipratropium/Albuterol 3 Ml Neb 06/25/24 12:24 6 ml ONCE ONE Administration Azithromycin 500 mg/ Sodium 250 mls @ 250 mls/hr 06/25/24 12:24 06/25/24 13:22 Chloride IV 06/25/24 12:25 250 mls/hr ONCE ONE Administration Ceftriaxone Sodium 1 gm/ 50 mls @ 100 mls/hr 06/25/24 12:24 Sodium Chloride IV 06/25/24 12:53 ONCE ONE Magnesium Sulfate 2 gm in 50 mls @ 50 mls/hr 06/25/24 12:25 06/25/24 12:45 Magnesium Sulfate 2gm/50ml Premix IV 06/25/24 13:24 50 mls/hr ONCE ONE Administration Lactated Ringer's 500 mls @ 999 mls/hr 06/25/24 12:26 06/25/24 12:44 Lactated Ringer's 1000 Ml Bag IV 06/25/24 12:56 999 mls/hr .Q31M ONE Administration Methylprednisolone Sodium Succinate 125 mg 06/25/24 12:23 06/25/24 12:43 Methylprednisolone Sod Succ 125mg Vial IV 06/25/24 12:24 125 mg ONCE ONE Administration ORDERS Category Date Time Status XR chest 2V Stat Exams 06/25/24 10:29 Completed XR hip LT 2-3V w/pelvis Stat Exams 06/25/24 12:33 Completed Complete Blood Count Auto Diff Stat Lab 06/25/24 10:20 Completed Comprehensive Metabolic Panel Stat Lab 06/25/24 10:20 Completed D-Dimer Stat Lab 06/25/24 12:30 Stop Req Rapid PCR Covid and Flu A/B Stat Lab 06/25/24 10:13 Completed Troponin I Q3H Lab 06/25/24 13:30 Ordered Troponin I Q3H Lab 06/25/24 16:30 Ordered Troponin I Stat Lab 06/25/24 10:20 Completed Blood Culture Stat Micro 06/25/24 12:40 Received VBG [Venous Blood Gas] Stat RT 06/25/24 10:37 Completed ECG Data Tracing #1: ECG Narrative: Independently interpreted by me rate is 91, rhythm is regular, axis is normal, no ST elevation in anatomical contiguous leads, isolated PVCs, QTc 347 MDM Narrative Medical Decision Narrative: In summary patient is 83-year-old female past medical history described above presents emergency department for evaluation of shortness of breath, cough, atraumatic hip pain. Patient is hemodynamically stable nontoxic-appearing upon arrival, afebrile. I suspect that with respect to her respiratory distress she has undiagnosed COPD for which she is not on controlled medication and is having an acute exacerbation. Differential includes viral induced, pneumonia, atypical ACS, among others.. Workup will be conducted with hematologic labs, chest x-ray, EKG, troponin and EKG as atypical ACS remains on the differential. Initial inventions include DuoNebs, magnesium, methylprednisolone, azithromycin. With the specter her atraumatic left hip pain, she does have full strength, normally she is able to ambulate with a walker, cane and sometimes uses a wheelchair. She is functionally at her baseline currently and has no asymmetric swelling of lower extremities to suggest DVT. Plain film left hip will be obtained. Initial inventions include IV Tylenol. Chest x-ray informally interpreted by me, bibasilar opacities left greater than right, there is no baseline comparator nor healthcare system. Ceftriaxone be added for presumed pneumonia. Patient was given gentle crystalloid resuscitation as she appears euvolemic on my exam full sepsis bolus for fluids were considered but will be deferred. Initial workup [place] leukocytosis 14.6, compensated acid-base status, calcium of 8.0 which will be repleted. Initial troponin within normal range and patient is not having chest pain. Given that patient has sepsis secondary to pneumonia the case was discussed hospital medicine regarding management they will admit the patient their service for continued evaluation at this time.
--- NOTE | 2024-06-25 12:33 | XR_ITS ---
PROCEDURE INFORMATION: Exam: XR Left Hip Exam date and time: 06/25/2024 12:43 PM Age: 83 years old Clinical indication: Hip pain; Left hip; Additional info: Atraumatic pain TECHNIQUE: Imaging protocol: Radiologic exam of the left hip. Views: 2 or 3 views hip with pelvis when performed. COMPARISON: CT ABDOMEN PELVIS W CON 05/25/2022 2:24 PM FINDINGS: Bones/joints: No visible fracture or dislocation. 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 Overlying bowel gas obscures the assessment of the sacral structures. Soft tissues: Unremarkable. IMPRESSION: 1. No visible fracture or dislocation. 2. 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
[2024-06-25] MEDS: IPRATROPIUM/ALBUTEROL 3 ML NEB 6 ML IH (12:43)
[2024-06-25] MEDS: METHYLPREDNISOLONE SOD SUCC 125MG VIAL 125 MG IV (12:43)
[2024-06-25] MEDS: LACTATED RINGERS 1000ML 500 ML 999 ML IV (12:44)
[2024-06-25] MEDS: MAGNESIUM SULFATE IN WATER 2 GM/50 ML PIGGYBACK IV (12:45)
--- NOTE | 2024-06-25 13:00 | PC.NURSE ---
Lunch trays provided
--- NOTE | 2024-06-25 13:15 | PC.NURSE ---
Pt difficult stick. Attempted multiple times by ER staff. Waiting on LAB to come obtain blood.
[2024-06-25] MEDS: AZITHROMYCIN 500 MG in 0.9 % SODIUM CHLORIDE 250 ML 250 MG IV (13:22)
--- NOTE | 2024-06-25 13:55 | P.HP_ITS ---
History of Present Illness *Admission Date: 06/25/24 *Reason for visit:: Shortness of breath *History of present illness: Ms. Mitchell is a pleasant 83-year-old female with history of hypothyroid, hypertension, hyperlipidemia. She presented to the ER with worsening shortness of breath over the past few days. States she has been having increased sputum production of yellow sputum. On arrival was found to be hypoxic. Workup in the ER concerning for tachypnea and leukocytosis of 14,000. Chest imaging concerning for pneumonia. Given her new oxygen requirement, medicine consulted for admission. 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 Patient is otherwise alert and oriented. at bedside. Discussed admission for treatment with IV antibiotics and further management of oxygen therapy and breathing treatments, patient agreed On evaluation, pleasant and interactive. No acute distress. Exam positive for crackles in left lower lobe. [facility] Disclaimer: The information contained in this section may have been updated after the patient was seen, as this information can be updated by other users. Medical History Small bowel obstruction Incarcerated hernia Surgical History History of hernia repair Family History Other No significant family history Social History Smoking Status: Former smoker tobacco type: cigarettes alcohol intake: never substance use type: denies use current occupational status: retired Travel in the last 8 weeks: None household members: spouse housing: house Review of Systems Review of Systems Review of systems (narrative): 14 point review of systems performed, pertinent positives and negatives as per HPI Meds Home Medications and Allergies Home Medications ?Medication ?Instructions ?Recorded ?Confirmed ?Type omeprazole 20 mg capsule,delayed 20 mg PO DAILY GERD #90 caps 08/04/19 06/25/24 History release colestipol 1 gram tablet 1 g PO DAILY Cholesterol 03/28/22 06/25/24 History levothyroxine 125 mcg tablet 125 mcg PO DAILY THYROID 03/28/22 06/25/24 History rosuvastatin 10 mg tablet 10 mg PO HS Cholesterol 03/28/22 06/25/24 History amlodipine 10 mg tablet 10 mg PO DAILY Hypertension 05/26/22 06/25/24 History losartan 100 mg tablet 100 mg PO DAILY 06/25/24 06/25/24 History New Prescriptions to Start Prescriptions: Allergies Allergy/AdvReac Type Severity Reaction Status Date / Time No Known Allergies Allergy Verified 06/18/22 08:53 Exam Data for Last 24 hours Vital signs and Labs for Last 24 Hours: Temp Pulse Resp BP Pulse Ox O2 Del Method O2 Flow Rate 98.2 F 88 22 135/59 L 91 L Nasal Cannula 3 06/25/24 10:00 06/25/24 13:30 06/25/24 10:00 06/25/24 13:30 06/25/24 13:30 06/25/24 13:30 06/25/24 10:01 Laboratory Results - last 24 hr 06/25/24 10:13: SARS-CoV-2 (PCR) Not detected, Influenza A Untype (PCR) Not detected, Influenza Type B (PCR) Not detected 06/25/24 10:20: WBC 14.6 H, RBC 4.83, Hgb 13.2, Hct 43.7, MCV 90.4, MCH 27.3, MCHC 30.2 L, RDW 15.2, Plt Count 198, MPV 9.0, Neut % (Auto) 84.2 H, Lymph % (Auto) 8.1 L, [place] % (Auto) 6.4, Eos % (Auto) 0.9, Baso % (Auto) 0.5, Neut # (Auto) 12.3 H, Lymph # (Auto) 1.2, [place] # (Auto) 0.9, Eos # (Auto) 0.1, Baso # (Auto) 0.1, Sodium 140, Potassium 4.0, Chloride 105, Carbon Dioxide 24, Anion Gap 15.0, BUN 16, Creatinine 0.80, Estimated Creat Clear 48, Estimated GFR 69, Est GFR ( Amer) 83, Glucose 103 H, Calcium 8.0 L, Total Bilirubin 1.2, AST 33, ALT 19, Alkaline Phosphatase 121, Troponin I 0.01, Total Protein 7.5, Albumin 4.2, Globulin 3.3 H, Albumin/Globulin Ratio 1.3 06/25/24 10:37: VBG pH 7.38, VBG pCO2 40.6, VBG pO2 44.2 H, VBG HCO3 23.5, VBG Total CO2 24.7, VBG O2 Saturation 77.9 H, VBG Base Excess -1.6, VBG Lactic Acid 2.5 H I & O for Last 24 hours: Intake & Output 06/22/24 06/23/24 06/24/24 06/25/24 23:59 23:59 23:59 23:59 Weight 70.76 kg Constitutional Constitutional: no acute distress, average body habitus, chronically ill appearing and cooperative *Routine HEENT Exam Head: Present normocephalic Eye: Present EOMI and PERRL ENT: Present mucous membranes moist *Routine Neck Exam Neck: Present supple; Absent lymphadenopathy *Routine Respiratory Exam Respiratory: Present prolonged expiratory phase and crackles (Left lung field); Absent rhonchi or wheezes *Routine Cardiovascular Exam Cardiovascular: Present RRR *Routine Abdominal Exam Abdominal: Present soft and normoactive bowel sounds; Absent tenderness *Routine Rectal Exam Rectal:: deferred *Routine Genitalia Exam Genitalia:: deferred *Routine Extremities Exam Extremities: Absent cyanosis, clubbing or edema *Routine Skin Exam Skin: Present warm; Absent rash *Routine Neurological Exam Neurological: Present alert, oriented X3 and moving all extremities; Absent altered mental status Assessment and Plan *Assessment and plan (1) Pneumonia: Status: Acute Category: Medical Code(s): J18.9 - Pneumonia, unspecified organism (2) COPD (chronic obstructive pulmonary disease): Status: Acute Category: Medical Code(s): J44.9 - Chronic obstructive pulmonary disease, unspecified (3) Sepsis: Status: Acute Category: Medical Code(s): A41.9 - Sepsis, unspecified organism (4) Hypothyroid: Status: Chronic Qualifiers: Hypothyroidism type: postoperative Qualified Code(s): E89.0 - Postprocedural hypothyroidism Category: Medical Code(s): E03.9 - Hypothyroidism, unspecified (5) CKD (chronic kidney disease): Status: Chronic Qualifiers: Chronic kidney disease stage: stage 3 (moderate) Category: Medical Code(s): N18.9 - Chronic kidney disease, unspecified (6) Essential hypertension: Status: Chronic Category: Medical Code(s): I10 - Essential (primary) hypertension Plan Ms. Sena is an 83-year-old female who presented with shortness of breath. Found to have pneumonia and sepsis. Discussed case with ER physician, request admission for further management given her new oxygen requirement and sepsis criteria. I agreed to admit for further treatment. Continuing antibiotics, breathing treatments, supplemental oxygen. Problems addressed as follows: Sepsis Bilateral lower lobe pneumonia - PSI/port score of 72, class III risk. Will admit to observation. -Tachypneic respiratory rate of 22, white count of 14.6, new finding of pneumonia on chest imaging. New oxygen requirement of 2 to 3 L. Normally on room air -Blood and sputum cultures pending -Received ceftriaxone and azithromycin in the ER, continue 1 g ceftriaxone daily and 500 mg azithromycin daily. Will complete at least 5 days of antibiotics. -Received methylprednisolone 125 mg once in the ER, will consider resuming steroids tomorrow pending exam finding -DuoNebs scheduled every 6 hours -Negative for flu and COVID -Per my review of chest imaging, opacities in bilateral lower lobes along with hyperinflation concerning for obstructive disease GERD: Pantoprazole 40 mg nightly as formulary conversion Hypothyroid: Continue levothyroxine 125 mcg daily. TSH pending. Hyperlipidemia: Continue home Crestor 10 mg nightly Kidney function normal with creatinine 0.8, BUN 16. Electrolytes normal with potassium 4.0 Full code Regular diet
[2024-06-25] MEDS: CEFTRIAXONE 1 GM 1 GM in 0.9 % SODIUM CHLORIDE 50 ML IV (14:04)
--- NOTE | 2024-06-25 14:15 | PC.NURSE ---
Rounded on pt. No needs voiced at this time. remains at BS.
[2024-06-25 14:28] LABS: Troponin I 0.01 ng/ml (0.00-0.034)
[2024-06-25] MEDS: CALCIUM GLUC IN NACL, ISO-OSM 2 GM/100 ML BAG IV (14:29)
[2024-06-25 14:50] LABS: Reflex Lactic Add Lactic Reflex
--- NOTE | 2024-06-25 15:17 | PC.NURSE ---
call made to [facility] supervisor for bed placement
[2024-06-25 15:38] LABS: Lactic Acid Follow Up (RFLX 1) 1.3 mmol/L (0.7-2.1)
[2024-06-25 16:18] LABS: Troponin I < 0.01 ng/ml (0.00-0.034)
--- NOTE | 2024-06-25 16:39 | PC.NURSE ---
report called to jennifer ashley on second floor
[2024-06-25] MEDS: PANTOPRAZOLE 40MG TABLET 40 MG PO (20:42)
--- NOTE | 2024-06-25 22:30 | PC.NURSE ---
Calcium hanging when arrived on shift, noticed it was not infusing, checked IV in right wrist, resistance note and hurting patient. Took IV out. This RN, Ba, and another RN attempted IV insertion with no success. ER was called for ultrasound. Aisha Cox APRN is aware and states patient needs ultrasound guided.
[2024-06-26] VITALS (12 sets, daily range): BP systolic 109–133; BP diastolic 51–63; PULSE 74–95; RESP 16–19; TEMP 36.6–37; O2SAT 90–96; BMI 30.9
[2024-06-26] MEDS: IPRATROPIUM/ALBUTEROL 3 ML NEB IH ×4 (00:22→18:32)
--- NOTE | 2024-06-26 04:41 | PC.NURSE ---
Addendum entered by Ximena Mancia RN 06/26/24 04:56: Spoke with Jennifer from [facility] about amount of time calcium bag has been spiked before infusing, states a new bag would need to be hung and new order obtained. Bag hung at 1430 discarded. Aisha Cox APRN contacted, states he still wants calcium given, will put in new order. Original Note: Ultrasound guided IV to Left AC, calcium infusing at this time.
[2024-06-26 04:53] LABS: Basophils % 0.1 % (0.1-2.0); Eosinophils % 0.1 % (0.1-12.0); Hematocrit 39.4 % (37.0-47.0); Hemoglobin 11.9 g/dL (12.2-16.2); Lymphocytes # 0.4 K/mm3 (0.7-4.5); Lymphocytes % 2.8 % (10-50); Mean Corpuscular HGB Conc 30.2 g/dL (31.8-35.4); Mean Corpuscular Hemoglobin 27.1 pg (27.0-31.2); Mean Corpuscular Volume 89.7 fl (81-99); Monocytes # 0.3 K/mm3 (0.1-1.0); Monocytes % 2.4 % (1.7-9.3); Neutrophils # 13.5 K/mm3 (1.8-7.8); Neutrophils % 94.6 % (37.0-80.0); Platelet Count 212 K/mm3 (142-424); Red Blood Count 4.39 M/mm3 (4.20-5.40); Red Cell Distribution Width 15.1 % (11.5-17.5); White Blood Count 14.3 K/mm3 (4.8-10.8)
[2024-06-26 04:56] LABS: MANUAL DIFFERENTIAL MANUAL DIFFERENTIAL (MANUAL DIFF)
--- NOTE | 2024-06-26 04:56 | EXP.EVENT.NO ---
Patient's IV, was no longer infusing., Attempts to place a new IV or without success, ask ER doctor to come up with ultrasound and which she did and was able to place an IV., Now starting the calcium gluconate as ordered.
[2024-06-26 05:03] LABS: Alanine Aminotransferase 16 U/L (12-78); Albumin Level 3.4 g/dl (3.5-5.0); Alkaline Phosphatase 114 U/L (38-126); Anion Gap 8.4 mEq/L (5-15); Aspartate Amino Transferase 22 U/L (14-36); Bilirubin,Total 0.4 mg/dl (0.2-1.3); Blood Urea Nitrogen 22 mg/dl (7-17); Calcium 8.2 mg/dl (8.4-10.2); Carbon Dioxide 28 mmol/L (22.0-30.0); Chloride 108 mmol/L (98-107); Creatinine Clearance Estimated 49 mL/min (50-200); Estimated Glomerular Filt Rate 53 ml/min (>60); GFR (African American) 64 ML/MIN (>60); Globulin 3.3 g/dL (1.3-3.2); Glucose 162 mg/dl (74-100); Magnesium 1.7 mg/dl (1.6-2.3); Potassium 3.4 mmoL/L (3.5-5.1); Sodium 141 mmol/L (136-145); Total Protein,Serum 6.7 g/dl (6.3-8.2)
[2024-06-26] MEDS: CALCIUM GLUC IN NACL, ISO-OSM 2 GM/100 ML BAG IV (05:10)
[2024-06-26 05:33] LABS: Thyroid Stimulating Hormone 0.11 uIU/mL (0.465-4.68)
[2024-06-26 05:55] LABS: Hypochromasia 1+; Lymphocytes % 4 % (10-50); Monocytes % 3 % (2-9); Neutrophils % 93 % (42-76); Platelet Estimate Normal; Total Cells Counted 100
--- NOTE | 2024-06-26 07:47 | PC.NURSE ---
patient sitting on bedside, no concerns at this time.
[2024-06-26] MEDS: MAGNESIUM SULFATE IN WATER 2 GM/50 ML PIGGYBACK IV (08:07)
[2024-06-26] MEDS: AMLODIPINE 10MG TABLET 10 MG PO (08:54)
[2024-06-26] MEDS: LEVOTHYROXINE 125MCG (0.125MG) TAB 125 MCG PO (08:54)
[2024-06-26] MEDS: POTASSIUM CHLORIDE 20MEQ TAB 40 MEQ PO ×2 (08:54→20:22)
--- NOTE | 2024-06-26 09:17 | P.PN_ITS ---
Subjective *Date: 06/26/24 *Time: 12:47 Interval history: Still having rhonchorous cough today. Still requiring oxygen overnight, was bumped to Ventimask due to mouth breathing while sleeping. Weaned to 3 L on morning rounds. Lung exam still coarse. No significant improvement from admi ssion. Denies chest pain, nausea, vomiting. Complains of still feeling quite weak. Medical Exam Vital signs and Labs for Last 24 Hours: Vital Signs Temp Pulse Pulse Resp BP BP Pulse Ox 06/26/24 08:20 92 L 06/26/24 08:00 97.9 F 91 H 19 133/63 90 L 06/26/24 07:46 93 L 06/26/24 07:00 77 06/26/24 07:00 89 06/26/24 07:00 92 L 06/26/24 06:47 06/26/24 04:37 06/26/24 04:00 98.6 F 74 16 118/56 L 94 L 06/26/24 03:00 06/26/24 00:56 06/26/24 00:23 81 06/26/24 00:00 98.3 F 80 16 116/57 L 93 L 06/25/24 23:00 06/25/24 21:00 06/25/24 20:00 06/25/24 19:54 06/25/24 19:23 98.3 F 86 18 121/50 L 90 L 06/25/24 18:45 06/25/24 18:30 86 06/25/24 18:15 85 06/25/24 17:28 85 20 93 L 06/25/24 17:15 06/25/24 17:08 97.9 F 85 19 121/58 L 93 L 06/25/24 16:51 98.8 F 85 18 121/58 L 06/25/24 16:00 85 118/52 L 93 L 06/25/24 15:30 86 124/56 L 91 L 06/25/24 15:00 87 131/59 L 90 L 06/25/24 14:30 88 126/54 L 91 L 06/25/24 14:00 89 125/49 L 90 L 06/25/24 13:30 88 135/59 L 91 L 06/25/24 13:07 82 126/64 96 06/25/24 10:01 95 06/25/24 10:00 98.2 F 95 H 22 130/60 89 L O2 Del Method O2 Flow Rate FiO2 06/26/24 08:20 Nasal Cannula 4 06/26/24 08:00 Nasal Cannula 4 06/26/24 07:46 Nasal Cannula 4 06/26/24 07:00 06/26/24 07:00 06/26/24 07:00 Venturi Mask 12 40 06/26/24 06:47 Venturi Mask 06/26/24 04:37 Venturi Mask 06/26/24 04:00 Venturi Mask 06/26/24 03:00 Nasal Cannula 3 06/26/24 00:56 Venturi Mask 06/26/24 00:23 06/26/24 00:00 Venturi Mask 06/25/24 23:00 Nasal Cannula 3 06/25/24 21:00 Nasal Cannula 3 06/25/24 20:00 Nasal Cannula 3 06/25/24 19:54 Nasal Cannula 3 32 06/25/24 19:23 Nasal Cannula 3 06/25/24 18:45 Nasal Cannula 3 06/25/24 18:30 06/25/24 18:15 06/25/24 17:28 Nasal Cannula 3 06/25/24 17:15 Nasal Cannula 3 06/25/24 17:08 Nasal Cannula 3 06/25/24 16:51 06/25/24 16:00 06/25/24 15:30 06/25/24 15:00 06/25/24 14:30 Nasal Cannula 06/25/24 14:00 06/25/24 13:30 Nasal Cannula 06/25/24 13:07 Nasal Cannula 06/25/24 10:01 Nasal Cannula 3 06/25/24 10:00 Room Air Intake and Output 06/25/24 06/26/24 06/26/24 23:59 07:59 15:59 Intake Total 120 / 420 300 / 300 Output Total 0 / 0 0 / 0 Balance 120 / 420 300 / 300 Intake: Intake, Oral Amount 120 / 420 300 / 300 Output: Output, Urine Amount 0 / 0 0 / 0 Other: Number of Unmeasured Voids 1 1 Weight 70.76 kg 71.35 kg Patient Weight 06/26/24 23:59 Weight 71.35 kg Laboratory Results - last 24 hr 06/25/24 10:13: SARS-CoV-2 (PCR) Not detected, Influenza A Untype (PCR) Not detected, Influenza Type B (PCR) Not detected 06/25/24 10:20: WBC 14.6 H, RBC 4.83, Hgb 13.2, Hct 43.7, MCV 90.4, MCH 27.3, MCHC 30.2 L, RDW 15.2, Plt Count 198, MPV 9.0, Neut % (Auto) 84.2 H, Lymph % (Auto) 8.1 L, [place] % (Auto) 6.4, Eos % (Auto) 0.9, Baso % (Auto) 0.5, Neut # (Auto) 12.3 H, Lymph # (Auto) 1.2, [place] # (Auto) 0.9, Eos # (Auto) 0.1, Baso # (Auto) 0.1, Sodium 140, Potassium 4.0, Chloride 105, Carbon Dioxide 24, Anion Gap 15.0, BUN 16, Creatinine 0.80, Estimated Creat Clear 48, Estimated GFR 69, Est GFR ( Amer) 83, Glucose 103 H, Calcium 8.0 L, Total Bilirubin 1.2, AST 33, ALT 19, Alkaline Phosphatase 121, Troponin I 0.01, Total Protein 7.5, Albumin 4.2, Globulin 3.3 H, Albumin/Globulin Ratio 1.3 06/25/24 10:37: VBG pH 7.38, VBG pCO2 40.6, VBG pO2 44.2 H, VBG HCO3 23.5, VBG Total CO2 24.7, VBG O2 Saturation 77.9 H, VBG Base Excess -1.6, VBG Lactic Acid 2.5 H 06/25/24 13:50: Troponin I 0.01 06/25/24 15:00: Lactate 1.3 06/25/24 15:55: Troponin I < 0.01 06/26/24 04:40: WBC 14.3 H, RBC 4.39, Hgb 11.9 L, Hct 39.4, MCV 89.7, MCH 27.1, MCHC 30.2 L, RDW 15.1, Plt Count 212, MPV 9.0, Neut % (Auto) 94.6 H, Lymph % (Auto) 2.8 L, [place] % (Auto) 2.4, Eos % (Auto) 0.1, Baso % (Auto) 0.1, Neut # (Auto) 13.5 H, Lymph # (Auto) 0.4 L, [place] # (Auto) 0.3, Eos # (Auto) 0.0, Baso # (Auto) 0.0, Total Counted 100, Neutrophils % (Manual) 93 H, Lymphocytes % (Manual) 4 L, Monocytes % (Manual) 3, Platelet Estimate Normal, Hypochromasia 1+, Sodium 141, Potassium 3.4 L, Chloride 108 H, Carbon Dioxide 28, Anion Gap 8.4, BUN 22 H D, Creatinine 1.00 D, Estimated Creat Clear 49, Estimated GFR 53 L, Est GFR ( Amer) 64 D, Glucose 162 H D, Calcium 8.2 L, Magnesium 1.7, Total Bilirubin 0.4, AST 22 D, ALT 16, Alkaline Phosphatase 114, Total Protein 6.7, Albumin 3.4 L D, Globulin 3.3 H, Albumin/Globulin Ratio 1.0 L, TSH 0.11 L I & O for Labs for Last 24 Hours: Intake & Output 06/23/24 06/24/24 06/25/24 06/26/24 23:59 23:59 23:59 23:59 Intake Total 120 / 420 300 / 300 Output Total 0 / 0 0 / 0 Balance 120 / 420 300 / 300 Weight 70.76 kg 71.35 kg Constitutional: Present no acute distress, obese, chronically ill appearing and cooperative Head: Present atraumatic and normocephalic ENT: Present normal exam Neck: Present normal inspection Respiratory: Present prolonged expiratory phase, rhonchi, wheezes (End expiratory) and normal respiratory effort; Absent respiratory distress or crackles Cardiac: Present Reg Rate and Rhythm GI: Present soft and normal bowel sounds; Absent distention or tenderness Extremities: Present normal inspection and full ROM Skin: Present intact; Absent erythema Neuro: Present Grossly Intact, alert, awake, oriented x 3 and moves all extremities Assessment and Plan *Assessment and plan (1) Pneumonia: Status: Acute Category: Medical Code(s): J18.9 - Pneumonia, unspecified organism (2) COPD (chronic obstructive pulmonary disease): Status: Acute Category: Medical Code(s): J44.9 - Chronic obstructive pulmonary disease, unspecified (3) Sepsis: Status: Acute Category: Medical Code(s): A41.9 - Sepsis, unspecified organism (4) Hypothyroid: Status: Chronic Qualifiers: Hypothyroidism type: postoperative Qualified Code(s): E89.0 - Postprocedural hypothyroidism Category: Medical Code(s): E03.9 - Hypothyroidism, unspecified (5) CKD (chronic kidney disease): Status: Chronic Qualifiers: Chronic kidney disease stage: stage 3 (moderate) Category: Medical Code(s): N18.9 - Chronic kidney disease, unspecified (6) Essential hypertension: Status: Chronic Category: Medical Code(s): I10 - Essential (primary) hypertension Plan Ms. Sena is an 83-year-old female who presented with shortness of breath. Found to have pneumonia and sepsis. Discussed case with ER physician, request admission for further management given her new oxygen requirement and sepsis criteria. I agreed to admit for further treatment. Continuing antibiotics, breathing treatments, supplemental oxygen. Problems addressed as follows: Sepsis Bilateral lower lobe pneumonia Acute hypoxemic respiratory failure - PSI/port score of 72, class III risk. Will admit to observation. -Patient continues to require 3 L nasal cannula oxygen this morning. White count 14.3. Wean oxygen as tolerated, goal sats greater 90% -Comprehensive respiratory panel pending to evaluate for alternate viral pathogens - Blood and sputum cultures pending -Received ceftriaxone and azithromycin in the ER, continue 1 g ceftriaxone daily and 500 mg azithromycin daily. Will complete at least 5 days of antibiotics. -Due to severity of wheeze and adventitious sounds on exam along with increased oxygen requirement overnight, will initiate prednisone 40 mg daily to complete 5 days of steroids. - DuoNebs scheduled every 6 hours GERD: Pantoprazole 40 mg nightly as formulary conversion Hypothyroid: Continue levothyroxine 125 mcg daily. TSH 0.11. Hyperlipidemia: Continue home Crestor 10 mg nightly Kidney function normal with creatinine 1.0, BUN 22. Potassium low at 3.4, magnesium 1.7. Will replace potassium orally today with 40 mEq twice today and with 2 g IV magnesium x 1 Repeat CBC, CMP, magnesium ordered for the morning. -Replacement electrolytes and IV antibiotics requiring close monitoring due to risk for toxicity endorgan injury. Full code Regular diet
[2024-06-26] MEDS: predniSONE 20MG TAB 40 MG PO (10:02)
[2024-06-26 10:15] LABS: Adenovirus,PCR Not Detected (NotDetected); Bordetella Pertussis Not Detected (NotDetected); Chlamydophila Pneumoniae, PCR Not Detected (NotDetected); Coronavirus 19, PCR Not Detected (NotDetected); Coronavirus 229E Not Detected (NotDetected); Coronavirus NL63 Not Detected (NotDetected); Coronavirus OC43 Not Detected (NotDetected); Coronovirus HKU1,PCR Not Detected (NotDetected); Human Metapneumovirus Not Detected (NotDetected); Influenza A, PCR Not Detected (NotDetected); Influenza AH1, 2009 Not Detected (NotDetected); Influenza AH1, PCR Not Detected (NotDetected); Influenza AH3,PCR Not Detected (NotDetected); Influenza B, PCR Not Detected (NotDetected); Mycoplasma Pneumoniae, PCR Not Detected (NotDetected); Parainfluenza 1, PCR Not Detected (NotDetected); Parainfluenza 2, PCR Not Detected (NotDetected); Parainfluenza 3, PCR Not Detected (NotDetected); Parainfluenza 4, PCR Not Detected (NotDetected); Respiratory Syncytial Virus Not Detected (NotDetected); Rhinovirus/Enterovirus Not Detected (NotDetected)
[2024-06-26] MEDS: CEFTRIAXONE SODIUM 1 GM in 0.9 % SODIUM CHLORIDE 50 ML IV (10:31)
[2024-06-26] MEDS: AZITHROMYCIN 500 MG in 0.9 % SODIUM CHLORIDE 250 ML 250 MG IV (12:34)
--- NOTE | 2024-06-26 13:00 | PC.NURSE ---
patient given specimen cup at this time and educated on the need for a sputum sample
--- NOTE | 2024-06-26 16:04 | PC.NURSE ---
pt up to chair t/o morning and for meals, coarse crackles auscultated on the right and wheezing t/o on left, pt has been weaned to 1L NC currently with O2 sats 90-92%, no complaints of SOA, does have a non-productive cough, pt aware of need for sputum, does have some edema to BLE, with the right being more edematous than the left, has ambulated to and from BR, small bowel movement this shift
[2024-06-26] MEDS: PANTOPRAZOLE 40MG TABLET 40 MG PO (20:23)
[2024-06-26] MEDS: ATORVASTATIN 40MG TABLET 40 MG PO (20:23)
[2024-06-27] VITALS (9 sets, daily range): BP systolic 118–140; BP diastolic 59–70; PULSE 81–97; RESP 16–18; TEMP 36.6–37; O2SAT 90–94; BMI 30.9
--- NOTE | 2024-06-27 05:17 | PC.NURSE ---
Alert and oriented. Ambulates to the restroom with 1 assist. Wheezing noted to bilateral lung sounds. Crackles in right lower lobe. On 2 L NC at this time. O2 sat >90%. Edema noted to BLE, non pitting. No complaints from patient. Call light in reach.
[2024-06-27] MEDS: LEVOTHYROXINE 125MCG (0.125MG) TAB 125 MCG PO (06:38)
[2024-06-27] MEDS: IPRATROPIUM/ALBUTEROL 3 ML NEB IH ×4 (06:47→23:06)
[2024-06-27 06:59] LABS: Basophils % 0.1 % (0.1-2.0); Hemoglobin 11.3 g/dL (12.2-16.2); Lymphocytes # 0.6 K/mm3 (0.7-4.5); Lymphocytes % 2.5 % (10-50); Mean Corpuscular HGB Conc 29.7 g/dL (31.8-35.4); Mean Corpuscular Hemoglobin 26.6 pg (27.0-31.2); Mean Corpuscular Volume 89.5 fl (81-99); Mean Platelet Volume 9.4 fl (7.4-10.4); Monocytes # 0.8 K/mm3 (0.1-1.0); Monocytes % 3.4 % (1.7-9.3); Neutrophils # 23.5 K/mm3 (1.8-7.8); Platelet Count 263 K/mm3 (142-424); Red Blood Count 4.25 M/mm3 (4.20-5.40); Red Cell Distribution Width 15.2 % (11.5-17.5)
[2024-06-27 07:01] LABS: MANUAL DIFFERENTIAL MANUAL DIFFERENTIAL (MANUAL DIFF)
[2024-06-27 07:07] LABS: Albumin Level 3.2 g/dl (3.5-5.0); Chloride 114 mmol/L (98-107); Sodium 144 mmol/L (136-145)
[2024-06-27 07:08] LABS: Potassium 4.7 mmoL/L (3.5-5.1)
[2024-06-27 07:10] LABS: Alanine Aminotransferase 21 U/L (12-78); Albumin/Globulin Ratio 1.1 (1.1-1.8); Alkaline Phosphatase 161 U/L (38-126); Anion Gap 9.7 mEq/L (5-15); Aspartate Amino Transferase 41 U/L (14-36); Bilirubin,Total 0.4 mg/dl (0.2-1.3); Blood Urea Nitrogen 33 mg/dl (7-17); Calcium 8.2 mg/dl (8.4-10.2); Carbon Dioxide 25 mmol/L (22.0-30.0); Creatinine Clearance Estimated 49 mL/min (50-200); Estimated Glomerular Filt Rate 53 ml/min (>60); GFR (African American) 64 ML/MIN (>60); Globulin 2.8 g/dL (1.3-3.2); Glucose 120 mg/dl (74-100)
[2024-06-27 07:11] LABS: Magnesium 1.8 mg/dl (1.6-2.3)
[2024-06-27 09:02] LABS: Lymphocytes % 7 % (10-50); Monocytes % 3 % (2-9); Neutrophils % 90 % (42-76); Total Cells Counted 100
[2024-06-27 09:03] LABS: Platelet Estimate Normal; RBC Morphology Normal
[2024-06-27] MEDS: predniSONE 20MG TAB 40 MG PO (09:03)
[2024-06-27] MEDS: AMLODIPINE 10MG TABLET 10 MG PO (09:03)
--- NOTE | 2024-06-27 09:41 | PC.NURSE ---
PT ROOM AIR SAT AT REST IS 88%.
--- NOTE | 2024-06-27 09:45 | HMH.OTEV ---
OT Inpatient Evaluation Rehab OT IP Evaluation Start: 06/27/24 08:27 Freq: ONCE Status: Active Protocol: Document 06/27/24 09:31 [facility] (Rec: 06/27/24 09:44 [facility] [id number]) Rehab OT IP Assessment Subjective History Pt oriented x3 on arrival. Pt agreeable to engage in OT evaluation. Pt admitted on due to shortness of breath. History and Physical report: Ms. Mitchell is a pleasant 83-year -old female with history of hypothyroid, hypertension, hyperlipidemia. She presented to the ER with worsening shortness of breath over the past few days. States she has been having increased sputum production of yellow sputum. On arrival was found to be hypoxic. Workup in the ER concerning for tachypnea and leukocytosis of 14,000. Chest imaging concerning for pneumonia. Given her new oxygen requirement, medicine consulted for admission. 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 Patient is otherwise alert and oriented. at bedside. Discussed admission for treatment with IV antibiotics and further management of oxygen therapy and breathing treatments, patient agreed On evaluation, pleasant and interactive. No acute distress. Exam positive for crackles in left lower lobe. Subjective My hips are hurting today. Prior to hospital admission, pt lived at home with her . Pt reports being able to complete ADLs independently. Pt reports that her cooks and a hired individual cleans the home. Pt regularly uses a cane for functional mobility but has a walker available at home. Pt does not use supplemental oxygen at home. Pt demonstrated loss of balance during functional mobility indicating a need for walker usage. Objective Patient Orientation Place,Name,Birthday Right Upper Extremity Gross ROM WFL Left Upper Extremity Gross ROM WFL Transfer Training Sit/Stand Transfer Assist Level Contact Guard/Hand Hold Chair Transfer Ability Contact Guard/Hand Hold Chair Transfer Technique Sit to/from Ambulatory Decrease in Endurance Yes Rehab OT IP prob,goals,plan Problems Date of Evaluation: 06/27/24 OT IP Problems Bed Mobility,Transfers,Balance ,Self care,Safety Rehab Potential Rehab Potential Good Equipment Needs Assistive Devices Rolling / Wheeled Walker Plan OT intervention Plan Bed Mobility,Transfers,Balance ,Self care,Safety,Therapeutic Exercise OT Plan Frequency Daily Duration LOS Discharge Goals Bed Mobility Ability Standby Assistance Sit to Stand Chair Transfer Ability Contact Guard/Hand Hold Chair Transfer Ability Contact Guard/Hand Hold Chair Transfer Technique Sit to/from Ambulatory Chair Transfer Assistive Devices Rolling Walker Feeding Ability Assist with Tray Set Up Lower Body Dressing Ability Minimal Assistance Upper Body Dressing Ability Contact Guard Performing Toilet Hygiene Ability Contact Guard Overall Commode/Toilet Transfer Ability Contact Guard Commode/Toilet Transfer Technique Sit to/from Ambulatory Commode/Toilet Transfer Assistive Grab Bars Devices Oral Care Assist Standby Assistance Discharge Plan OT Discharge Plan Pt will be seen for OT services while at [facility]. Once discharged, pt could return living at home with to provide 24/7 care and assistance as needed. Therapist recommends HHOT evaluation. Although pt uses a cane, pt would benefit from using their walker to improve safety and balance. Continued skilled services are important to improve endurance, ADL independence, safety, balance, and functional transfers. Eval Complexity Eval Charge Codes 67657 - Moderate Complexity PHYSICIAN CERTIFICATION: I certify the specified therapy services for Milana Sena are required, authorized, and reviewed every 30 days.
--- NOTE | 2024-06-27 10:06 | SW/DCPLANNER ---
Addendum entered by Binta Barbosa 06/28/24 15:45: [facility] stated that services will begin this week. Addendum entered by Binta Barbosa 06/28/24 13:42: Patient information/order has been faxed to [facility]. Original Note: I spoke w/ this patient and her regarding plans once medically stable for discharge. PT/OT evaluated patient and recommended returning home w/ home health services. Patient is agreeable to home health and does not have a preference for home health agency. I will set patient up w/ home health at time of discharge. Discharge date is unknown at this time. Patient is also agree[facility] to [facility] if home O2 is needed at time of discharge.
--- NOTE | 2024-06-27 10:14 | HMH.PTEV ---
Physical Therapy Evaluation Rehab PT IP Evaluation Start: 06/27/24 08:27 Freq: ONCE Status: Active Protocol: Document 06/27/24 09:37 HALIE (Rec: 06/27/24 09:56 HALIE [id number]) Subjective/History History History Per H&P: Ms. Mitchell is a pleasant 83-year-old female with history of hypothyroid, hypertension, hyperlipidemia. She presented to the ER with worsening shortness of breath over the past few days. States she has been having increased sputum production of yellow sputum. On arrival was found to be hypoxic. Workup in the ER concerning for tachypnea and leukocytosis of 14,000. Chest imaging concerning for pneumonia. Given her new oxygen requirement, medicine consulted for admission. 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 Patient is otherwise alert and oriented. at bedside. Discussed admission for treatment with IV antibiotics and further management of oxygen therapy and breathing treatments, patient agreed. Subjective Subjective Pt lives with her in a single story home with 0 DAE. Pt was IND with ambulation without AD. Pt was not on supplemental O2 prior to admission. New diagnosis of cancer in past 12 No months? Rehab PT IP Eval Objective Appearance Patient Behavior Appropriate,Cooperative Patient Orientation Person,Situation Difficulty following instructions none Speech Pattern Clear Ambulation Patient Able to Ambulate Yes Ambulation Observation IP General Gait Pattern Observation Wide Based Gait Ambulation Distance (feet) 40 Ambulation Assistive Device None Ambulation Ability Minimal x 1 (25% assist) Balance Ability to Arise Able, uses arms to help Sitting Balance Steady, safe Standing Balance Steady, wide stance Transfers Bed Transfer Ability Supervision/Stand by Sit to Stand Bed Transfer Ability Supervision/Stand by Rehab PT IP prob,goals,plan Problems Date of Evaluation: 06/27/24 PT IP Problems Transfers,Gait,Balance,Safety Rehab Potential Rehab Potential Good Equipment Needs Assistive Devices Rolling / Wheeled Walker Plan PT Intervention Plan Transfers,Gait,Balance,Safety, Therapeutic Exercise Other Intervention Plan 1-2 times PT Plan Frequency Daily Duration LOS Discharge Goals Bed Transfer Ability Supervision/Stand by Sit to Stand Chair Transfer Ability Independent Ambulation Assistive Device Rolling Walker Ambulation Distance (feet) 100 Discharge Plan PT Discharge Plan Initial physical therapy evaluation performed. Patient presents below baseline at this time in functional mobility, transfers, gait, and strength. Pt would benefit from skilled PT while at [facility] to prevent further functional decline and maximize safety with mobility. Pt required Min A d/t one bout of LOB during ambulation. Recommending use of RW to maximize safety with ambulation tasks. Pt safe to d /c home when deemed medically necessary d/t current level of mobility, home set-up, and family support. PT recommending home health PT services to address deficits. Eval Complexity Eval Charge Codes 56899 - Moderate Complexity PHYSICIAN CERTIFICATION: I certify the specified therapy services for Milana Sena are required, authorized, and reviewed every 30 days.
[2024-06-27] MEDS: CEFTRIAXONE SODIUM 1 GM in 0.9 % SODIUM CHLORIDE 50 ML IV (11:03)
--- NOTE | 2024-06-27 13:44 | P.PN_ITS ---
Subjective *Date: 06/27/24 *Time: 20:26 Interval history: Feeling marginally better today. Still requiring 2 L nasal cannula oxygen. Up in bedside chair on rounds. Eating. Cough mildly productive today. Denies chest pain, fever, nausea or vomiting. Medical Exam Vital signs and Labs for Last 24 Hours: Vital Signs Temp Pulse Pulse Resp BP Pulse Ox O2 Del Method 06/27/24 13:00 Nasal Cannula 06/27/24 11:57 98.1 F 81 18 133/61 90 L Nasal Cannula 06/27/24 11:00 Nasal Cannula 06/27/24 09:00 Nasal Cannula 06/27/24 08:00 Nasal Cannula 06/27/24 08:00 98.2 F 97 H 18 140/63 92 L Nasal Cannula 06/27/24 06:40 Nasal Cannula 06/27/24 05:00 Nasal Cannula 06/27/24 04:00 98.2 F 84 16 129/63 90 L Nasal Cannula 06/27/24 03:00 Nasal Cannula 06/27/24 00:40 Nasal Cannula 06/27/24 00:00 98.6 F 82 16 118/59 L 93 L Nasal Cannula 06/26/24 22:34 Nasal Cannula 06/26/24 21:00 Nasal Cannula 06/26/24 20:00 Nasal Cannula 06/26/24 20:00 98.1 F 95 H 16 124/60 92 L Nasal Cannula 06/26/24 19:00 Nasal Cannula 06/26/24 18:45 83 06/26/24 18:35 Nasal Cannula 06/26/24 16:59 Nasal Cannula 06/26/24 15:59 98.6 F 88 19 114/58 L 93 L Nasal Cannula 06/26/24 15:00 Nasal Cannula O2 Flow Rate FiO2 06/27/24 13:00 2 06/27/24 11:57 06/27/24 11:00 2 06/27/24 09:00 2 06/27/24 08:00 2 06/27/24 08:00 06/27/24 06:40 2 06/27/24 05:00 2 06/27/24 04:00 2 06/27/24 03:00 2 06/27/24 00:40 2 06/27/24 00:00 1.5 06/26/24 22:34 1.5 06/26/24 21:00 1.5 06/26/24 20:00 1.5 06/26/24 20:00 1.5 06/26/24 19:00 1 06/26/24 18:45 06/26/24 18:35 2 28 06/26/24 16:59 1 06/26/24 15:59 1 06/26/24 15:00 2 Intake and Output 06/26/24 06/27/24 06/27/24 23:59 07:59 15:59 Intake Total 300 / 1020 720 / 1020 Output Total 0 / 0 0 / 0 Balance -1128 300 / 1020 720 / 1020 Intake: Intake, Oral Amount 300 / 1020 720 / 1020 Output: Output, Urine Amount 0 / 0 0 / 0 Other: Number of Unmeasured Voids 1 1 Number of Bowel Movements 1 Weight 71.35 kg Patient Weight 06/27/24 23:59 Weight 71.35 kg Laboratory Results - last 24 hr 06/27/24 05:37: WBC 25.0 H* D, RBC 4.25, Hgb 11.3 L, Hct 38.0, MCV 89.5, MCH 26.6 L, MCHC 29.7 L, RDW 15.2, Plt Count 263, MPV 9.4, Neut % (Auto) 94.0 H, Lymph % (Auto) 2.5 L, [place] % (Auto) 3.4, Eos % (Auto) 0.0 L, Baso % (Auto) 0.1, Neut # (Auto) 23.5 H, Lymph # (Auto) 0.6 L, [place] # (Auto) 0.8, Eos # (Auto) 0.0, Baso # (Auto) 0.0, Total Counted 100, Neutrophils % (Manual) 90 H, Lymphocytes % (Manual) 7 L, Monocytes % (Manual) 3, Platelet Estimate Normal, RBC Morphology Normal, Sodium 144, Potassium 4.7 D, Chloride 114 H, Carbon Dioxide 25, Anion Gap 9.7, BUN 33 H D, Creatinine 1.00, Estimated Creat Clear 49, Estimated GFR 53 L, Est GFR ( Amer) 64, Glucose 120 H, Calcium 8.2 L, Magnesium 1.8, Total Bilirubin 0.4, AST 41 H D, ALT 21 D, Alkaline Phosphatase 161 H, Total Protein 6.0 L, Albumin 3.2 L, Globulin 2.8, Albumin/Globulin Ratio 1.1 I & O for Labs for Last 24 Hours: Intake & Output 06/24/24 06/25/24 06/26/24 06/27/24 23:59 23:59 23:59 23:59 Intake Total 120 / 420 830 / 1130 1020 / 1020 Output Total 0 / 0 1 / 1 0 / 0 Balance 120 / 420 829 / 1129 1020 / 1020 Weight 70.76 kg 71.35 kg 71.35 kg Microbiology Reports for the Last 24 Hours: Microbiology 06/25/24 12:40 Blood Blood Culture - Preliminary NO GROWTH AFTER 48 HOURS 06/25/24 12:40 Blood Blood Culture - Preliminary NO GROWTH AFTER 48 HOURS Constitutional: Present no acute distress, obese, chronically ill appearing and cooperative Head: Present atraumatic and normocephalic ENT: Present normal exam Neck: Present normal inspection Respiratory: Present prolonged expiratory phase, rhonchi and normal respiratory effort; Absent respiratory distress, wheezes or crackles Cardiac: Present Reg Rate and Rhythm GI: Present soft and normal bowel sounds; Absent distention or tenderness Extremities: Present normal inspection and full ROM Skin: Present intact; Absent erythema Neuro: Present Grossly Intact, alert, awake, oriented x 3 and moves all extremities Assessment and Plan *Assessment and plan (1) Pneumonia: Status: Acute Category: Medical Code(s): J18.9 - Pneumonia, unspecified organism (2) COPD (chronic obstructive pulmonary disease): Status: Acute Category: Medical Code(s): J44.9 - Chronic obstructive pulmonary disease, unspecified (3) Sepsis: Status: Acute Category: Medical Code(s): A41.9 - Sepsis, unspecified organism (4) Hypothyroid: Status: Chronic Qualifiers: Hypothyroidism type: postoperative Qualified Code(s): E89.0 - Postprocedural hypothyroidism Category: Medical Code(s): E03.9 - Hypothyroidism, unspecified (5) CKD (chronic kidney disease): Status: Chronic Qualifiers: Chronic kidney disease stage: stage 3 (moderate) Category: Medical Code(s): N18.9 - Chronic kidney disease, unspecified (6) Essential hypertension: Status: Chronic Category: Medical Code(s): I10 - Essential (primary) hypertension Plan Ms. Sena is an 83-year-old female who presented with shortness of breath. Found to have pneumonia and sepsis. Discussed case with ER physician, request admission for further management given her new oxygen requirement and sepsis criteria. I agreed to admit for further treatment. Showing some improvement on exam but still requiring 2 L oxygen. Continue IV antibiotics for 24 more hours. Dissipate discharge tomorrow. Continues to require inpatient management. Problems addressed as follows: Sepsis Bilateral lower lobe pneumonia Acute hypoxemic respiratory failure - PSI/port score of 72, class III risk. Slow to improve. -Patient continues to require 2 L nasal cannula oxygen this morning. White count increased to 25 today. Wean oxygen as tolerated, goal sats greater 90% - Blood and sputum cultures pending - continue 1 g ceftriaxone daily and 500 mg azithromycin daily. Will complete at least 5 days of antibiotics. - prednisone 40 mg daily, today is 2 of 5 - DuoNebs scheduled every 6 hours GERD: Pantoprazole 40 mg nightly as formulary conversion Hypothyroid: Continue levothyroxine 125 mcg daily. TSH 0.11. Hyperlipidemia: Continue home Crestor 10 mg nightly Creatinine 1.0, BUN 33. Magnesium 1.8, potassium 4.7. Repeat CBC, CMP, magnesium ordered for the morning. Full code Regular diet
[2024-06-27] MEDS: AZITHROMYCIN 500 MG in 0.9 % SODIUM CHLORIDE 250 ML 250 MG IV (13:45)
--- NOTE | 2024-06-27 15:43 | PC.NURSE ---
AOX4, REQUIRING 2LNC FOR O2 SUPPORT. HAS SAT UP TO CHAIR FOR MOST OF SHIFT.
[2024-06-27] MEDS: SODIUM CHLORIDE 3% 15ML NEB 3 ML IH (18:43)
[2024-06-27] MEDS: ATORVASTATIN 40MG TABLET 40 MG PO (20:51)
[2024-06-27] MEDS: PANTOPRAZOLE 40MG TABLET 40 MG PO (20:51)
[2024-06-28] VITALS: BP 137/64; PULSE 89; RESP 16; TEMP 37; O2SAT 94
[2024-06-28 04:00] VITALS: BP 142/66; PULSE 90; RESP 18; TEMP 36.9; O2SAT 95; BMI 30.9
--- NOTE | 2024-06-28 06:51 | PC.NURSE ---
Alert and oriented. No complaints throughout the night. 1.5L NC, O2 sat >90%. Wheezing noted in lung sounds. Ambulates to the bathroom with one assist. Call light in reach.
[2024-06-28] MEDS: LEVOTHYROXINE 125MCG (0.125MG) TAB 125 MCG PO (06:52)
[2024-06-28 07:14] LABS: Basophils # 0.1 K/mm3 (0-0.2); Basophils % 0.4 % (0.1-2.0); Eosinophils % 0.1 % (0.1-12.0); Hematocrit 37.5 % (37.0-47.0); Hemoglobin 11.6 g/dL (12.2-16.2); Lymphocytes # 1.2 K/mm3 (0.7-4.5); Mean Corpuscular Volume 90.2 fl (81-99); Mean Platelet Volume 8.2 fl (7.4-10.4); Monocytes # 0.9 K/mm3 (0.1-1.0); Monocytes % 4.5 % (1.7-9.3); Neutrophils # 17.3 K/mm3 (1.8-7.8); Platelet Count 266 K/mm3 (142-424); Red Blood Count 4.15 M/mm3 (4.20-5.40); Red Cell Distribution Width 14.8 % (11.5-17.5); White Blood Count 19.4 K/mm3 (4.8-10.8)
[2024-06-28 07:20] LABS: MANUAL DIFFERENTIAL MANUAL DIFFERENTIAL (MANUAL DIFF); Magnesium 1.6 mg/dl (1.6-2.3)
[2024-06-28 08:00] VITALS: BP 141/64; PULSE 87; RESP 19; TEMP 36.6; O2SAT 93; O2SAT 96
[2024-06-28 08:27] VITALS: O2SAT 93
--- NOTE | 2024-06-28 08:27 | PC.NURSE ---
PATIENT O2 SATURATION 93% ON ROOM AIR AT REST.
[2024-06-28 08:33] LABS: Albumin Level 2.9 g/dl (3.5-5.0); Chloride 114 mmol/L (98-107)
[2024-06-28 08:34] LABS: Potassium 4.4 mmoL/L (3.5-5.1); Sodium 143 mmol/L (136-145)
[2024-06-28 08:36] LABS: Alanine Aminotransferase 36 U/L (12-78); Anion Gap 7.4 mEq/L (5-15); Aspartate Amino Transferase 46 U/L (14-36); Blood Urea Nitrogen 34 mg/dl (7-17); Carbon Dioxide 26 mmol/L (22.0-30.0); Creatinine Clearance Estimated 49 mL/min (50-200); Estimated Glomerular Filt Rate 60 ml/min (>60); GFR (African American) 73 ML/MIN (>60)
[2024-06-28 08:37] LABS: Albumin/Globulin Ratio 1.2 (1.1-1.8); Alkaline Phosphatase 130 U/L (38-126); Bilirubin,Total 0.4 mg/dl (0.2-1.3); Globulin 2.4 g/dL (1.3-3.2); Glucose 95 mg/dl (74-100); Total Protein,Serum 5.3 g/dl (6.3-8.2)
[2024-06-28] MEDS: predniSONE 20MG TAB 40 MG PO (08:40)
[2024-06-28] MEDS: AMLODIPINE 10MG TABLET 10 MG PO (08:40)
[2024-06-28] MEDS: CEFTRIAXONE SODIUM 1 GM in 0.9 % SODIUM CHLORIDE 50 ML IV (10:14)
[2024-06-28 12:07] LABS: Lymphocytes % 11 % (10-50); Monocytes % 1 % (2-9); Neutrophils % 88 % (42-76); Total Cells Counted 100
[2024-06-28 12:08] LABS: Platelet Estimate Normal; RBC Morphology Normal
--- NOTE | 2024-06-28 13:31 | P.DS_ITS ---
General Admission date:: 06/26/24 HPI HPI HPI: Ms. Mitchell is a pleasant 83-year-old female with history of hypothyroid, hypertension, hyperlipidemia. She presented to the ER with worsening shortness of breath over the past few days. States she has been having increased sputum production of yellow sputum. On arrival was found to be hypoxic. Workup in the ER concerning for tachypnea and leukocytosis of 14,000. Chest imaging concerni ng for pneumonia. Given her new oxygen requirement, medicine consulted for admission. 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 Patient is otherwise alert and oriented. at bedside. Discussed admission for treatment with IV antibiotics and further management of oxygen therapy and breathing treatments, patient agreed On evaluation, pleasant and interactive. No acute distress. Exam positive for crackles in left lower lobe. Hospital Course Hospital Course Hospital Course: Ms. Sena is an 83-year-old female who presented with shortness of breath. Found to have pneumonia and sepsis. #Sepsis, resolved #Acute hypoxic respiratory failure, resolved #Bilateral lower lobe pneumonia #COPD exacerbation - PSI/port score of 72, class III risk. - Improved with 3 days of ceftriaxone, azithromycin, prednisone, and breathing treatments.. Weaned off O2 to room air with appropriate saturations on walk test. Patient feels much better today. - Discharged with 2 more days of cefdinir, azithromycin, prednisone. - Advised to follow-up with PCP within a week. Exam Data for Last 24 hours Vital signs and Labs for Last 24 Hours: Temp Pulse Resp BP Pulse Ox O2 Del Method O2 Flow Rate 97.8 F 87 19 141/64 H 93 L Room Air 1.5 06/28/24 08:00 06/28/24 08:00 06/28/24 08:00 06/28/24 08:00 06/28/24 08:27 06/28/24 13:00 06/28/24 06:50 FiO2 28 06/26/24 18:35 Laboratory Results - last 24 hr 06/28/24 05:31: WBC 19.4 H, RBC 4.15 L, Hgb 11.6 L, Hct 37.5, MCV 90.2, MCH 28.0, MCHC 31.0 L, RDW 14.8, Plt Count 266, MPV 8.2, Neut % (Auto) 89.0 H, Lymph % (Auto) 6.0 L, [place] % (Auto) 4.5, Eos % (Auto) 0.1, Baso % (Auto) 0.4, Neut # (Auto) 17.3 H, Lymph # (Auto) 1.2, [place] # (Auto) 0.9, Eos # (Auto) 0.0, Baso # (Auto) 0.1, Total Counted 100, Neutrophils % (Manual) 88 H, Lymphocytes % (Manual) 11, Monocytes % (Manual) 1 L, Platelet Estimate Normal, RBC Morphology Normal, Sodium 143, Potassium 4.4, Chloride 114 H, Carbon Dioxide 26, Anion Gap 7.4, BUN 34 H, Creatinine 0.90, Estimated Creat Clear 49, Estimated GFR 60, Est GFR ( Amer) 73, Glucose 95 D, Calcium 8.0 L, Magnesium 1.6 D, Total Bilirubin 0.4, AST 46 H, ALT 36 D, Alkaline Phosphatase 130 H, Total Protein 5.3 L, Albumin 2.9 L, Globulin 2.4, Albumin/Globulin Ratio 1.2 I & O for Last 24 hours: Intake & Output 06/25/24 06/26/24 06/27/24 06/28/24 23:59 23:59 23:59 23:59 Intake Total 120 / 420 830 / 1130 1560 / 1560 660 / 660 Output Total 0 / 0 1 / 1 0 / 0 0 / 0 Balance 120 / 420 829 / 1129 1560 / 1560 660 / 660 Weight 70.76 kg 71.35 kg 71.35 kg 71.35 kg Microbiology Reports for the Last 24 Hours: Microbiology 06/27/24 18:35 Sputum - Nasotracheal Suction Gram Stain - Final 06/27/24 18:35 Sputum - Nasotracheal Suction Sputum Culture - Preliminary 06/25/24 12:40 Blood Blood Culture - Preliminary NO GROWTH AFTER 48 HOURS 06/25/24 12:40 Blood Blood Culture - Preliminary NO GROWTH AFTER 48 HOURS Constitutional Constitutional: no acute distress *Routine HEENT Exam Head: Present normocephalic Eye: Present EOMI and PERRL ENT: Present mucous membranes moist *Routine Neck Exam Neck: Present supple; Absent lymphadenopathy *Routine Respiratory Exam Respiratory: Present CTA bilaterally *Routine Cardiovascular Exam Cardiovascular: Present RRR *Routine Abdominal Exam Abdominal: Present soft and normoactive bowel sounds; Absent tenderness *Routine Extremities Exam Extremities: Absent cyanosis, clubbing or edema *Routine Skin Exam Skin: Present warm; Absent rash *Routine Neurological Exam Neurological: Present alert and oriented X3 Results Data Completed and Pending Labs on day of discharge: Labs from last 24 hours 06/28/24 05:31 WBC 19.4 H RBC 4.15 L Hgb 11.6 L Hct 37.5 MCV 90.2 MCH 28.0 MCHC 31.0 L RDW 14.8 Plt Count 266 MPV 8.2 Neut % (Auto) 89.0 H Lymph % (Auto) 6.0 L [place] % (Auto) 4.5 Eos % (Auto) 0.1 Baso % (Auto) 0.4 Neut # (Auto) 17.3 H Lymph # (Auto) 1.2 [place] # (Auto) 0.9 Eos # (Auto) 0.0 Baso # (Auto) 0.1 Total Counted 100 Neutrophils % (Manual) 88 H Lymphocytes % (Manual) 11 Monocytes % (Manual) 1 L Platelet Estimate Normal RBC Morphology Normal Sodium 143 Potassium 4.4 Chloride 114 H Carbon Dioxide 26 Anion Gap 7.4 BUN 34 H Creatinine 0.90 Estimated Creat Clear 49 Estimated GFR 60 Est GFR ( Amer) 73 Glucose 95 D Calcium 8.0 L Magnesium 1.6 D Total Bilirubin 0.4 AST 46 H ALT 36 D Alkaline Phosphatase 130 H Total Protein 5.3 L Albumin 2.9 L Globulin 2.4 Albumin/Globulin Ratio 1.2 Preliminary micro results at discharge 06/27/24 18:35 Sputum Culture - Preliminary Sputum - Nasotracheal Suction 06/25/24 12:40 Blood Culture - Preliminary Blood NO GROWTH AFTER 48 HOURS 06/25/24 12:40 Blood Culture - Preliminary Blood NO GROWTH AFTER 48 HOURS DS: Diagnosis Discharge Diagnosis (1) Pneumonia: Status: Acute Code(s): J18.9 - Pneumonia, unspecified organism (2) COPD (chronic obstructive pulmonary disease): Status: Acute Code(s): J44.9 - Chronic obstructive pulmonary disease, unspecified (3) Sepsis: Status: Acute Code(s): A41.9 - Sepsis, unspecified organism (4) Hypothyroid: Status: Chronic Code(s): E03.9 - Hypothyroidism, unspecified Qualifiers: Hypothyroidism type: postoperative Qualified Code(s): E89.0 - Postprocedural hypothyroidism (5) CKD (chronic kidney disease): Status: Chronic Code(s): N18.9 - Chronic kidney disease, unspecified Qualifiers: Chronic kidney disease stage: stage 3 (moderate) (6) Essential hypertension: Status: Chronic Code(s): I10 - Essential (primary) hypertension Meds Home Medications and Allergies Home Medications ?Medication ?Instructions ?Recorded ?Confirmed ?Type omeprazole 20 mg capsule,delayed 20 mg PO DAILY GERD #90 caps 08/04/19 06/25/24 History release colestipol 1 gram tablet 1 g PO BID Cholesterol 03/28/22 06/26/24 History levothyroxine 125 mcg tablet 125 mcg PO DAILY THYROID 03/28/22 06/25/24 History rosuvastatin 10 mg tablet 10 mg PO HS Cholesterol 03/28/22 06/25/24 History amlodipine 10 mg tablet 10 mg PO DAILY Hypertension 05/26/22 06/25/24 History losartan 100 mg tablet 100 mg PO DAILY 06/25/24 06/25/24 History azithromycin 250 mg tablet 250 mg PO DAILY 2 days #2 tabs 06/28/24 Rx cefdinir 300 mg capsule 300 mg PO BID #4 caps 06/28/24 Rx prednisone 20 mg tablet 40 mg (2 x 20 mg) PO DAILY 2 days 06/28/24 Rx #4 tabs New Prescriptions to Start Prescriptions: Keith Law cefdinir Keith Bunn prednisone Keith Bunn Allergies Allergy/AdvReac Type Severity Reaction Status Date / Time No Known Allergies Allergy Verified 06/18/22 08:53 Discharge Plan Disposition Patient Disposition: Home Health Service Condition: Fair Discharge Order Discharge Orders: Discharge Order (Routine); Ordered 06/28/24 Ordered By: Keith Bunn Follow up Plan Follow up with: Dinora Quevedo MD [Primary Care Provider] - Enter time for follow up (OFFICE WILL CALL YOU WITH APPOINTMENT TIME ) Prescriptions/Medication Reconciliation: New prednisone 20 mg Tablet 40 mg PO DAILY 2 Days Qty: 4 0RF Rx Instructions: Start 06/29 cefdinir 300 mg capsule 300 mg PO BID Qty: 4 0RF Rx Instructions: Start 06/29 azithromycin 250 mg tablet 250 mg PO DAILY 2 Days Qty: 2 0RF Rx Instructions: Start 06/29 Continued omeprazole 20 mg capsule,delayed release(DR/EC) 20 mg PO DAILY Qty: 90 Patient Comments: TAKE 1 CAPSULE BY MOUTH ONCE DAILY losartan 100 mg tablet 100 mg PO DAILY Patient Comments: TAKE 1 TABLET BY MOUTH ONCE DAILY levothyroxine 125 MCG tablet 125 mcg PO DAILY colestipol 1 GM tablet 1 g PO BID rosuvastatin 10 MG tablet 10 mg PO HS amlodipine 10 MG tablet 10 mg PO DAILY Problem Reconciliation Problems Reviewed?: Yes Patient Discharge Instructions ACTIVITY: Ambulate as tolerated DIET: continue same diet and regular diet Additional Instructions: Finish course of cefdinir and azithromycin (antibiotics), and prednisone (steroids) for 3 more days. Follow-up with your PCP within 1 week of discharge. Patient Instructions: DI for Pneumonia -- Adult Print Language: Ivorian Providers Primary Care Provider: Dinora Quevedo Admit Provider: Luis E Berman Attending Provider: Luis E Berman
--- NOTE | 2024-06-29 15:03 | CARE MANAGER ---
Contacted patient related to hospital discharge. Patient states she is doing well. She denies questions or concerns. She has her new medications and has an appointment next week with PCP. GRISELDA Wisdom
== END 2024-06-28 14:08 | disposition home health service (06) | DRG 871 ==
LOC: 2ND 17:08 → ER 17:08 → ICU 17:08
PROVIDERS: Admitting Provider Internal Medicine Adolescent Medicine; Emergency Provider Emergency Medicine; PCP Nurse Practitioner Family; Visit Provider Internal Medicine Adolescent Medicine
DX: A41.9 Sepsis, unspecified organism (principal); J18.9 Pneumonia, unspecified organism; J96.01 Acute respiratory failure with hypoxia; J44.0 Chronic obstructive pulmonary disease with (acute) lower respiratory infection; J44.1 Chronic obstructive pulmonary disease with (acute) exacerbation; E89.0 Postprocedural hypothyroidism; N18.9 Chronic kidney disease, unspecified; K21.9 Gastro-esophageal reflux disease without esophagitis; E78.5 Hyperlipidemia, unspecified; I12.9 Hypertensive chronic kidney disease with stage 1 through stage 4 chronic kidney disease, or unspecified chronic kidney disease; N18.30 Chronic kidney disease, stage 3 unspecified
CPT/HCPCS: 36415; 71046; 73502; 80053; 82803; 83605; 83735; 84443; 84484; 85007; 85025; 85027; 87040; 87070; 87205; 87265; 87486; 87581; 87632; 87635; 87636; 93005; 94640; 94760; 94761; 97162; 97166; 97530; 99285; G0378; J0456; J0696; J2919; J3475; J7050; J7120; J7620

== ENCOUNTER 2025-03-28 11:51 | Outpatient (CLI) | payer MEDICARE, BC, SELFPAY ==
--- OUTSIDE RECORDS SUMMARY | 2025-03-28 11:55 | XMS_ITS | Clinical Summary ---
Author Organization [facility] Address [address] [place] [address] Care Team Providers Care Stone Fabricator Name Role Phone Dinora Quevedo APRN Primary Care Provider Allergies Active Allergy Reactions Criticality Noted Date Comments Lisinopril Other (See Comments) 03/16/2017 Angioedema Medications Multiple Vitamins-Minerals (EYE VITAMINS PO) Take by mouth Active hydroxychloroquine (PLAQUENIL) 200 MG tablet Take 1 tablet by mouth daily 2 Active levothyroxine (SYNTHROID) 125 MCG tabletIndications: Postsurgical hypothyroidism Take 1 tablet by mouth daily 90 tablet 3 3 Active colestipol (COLESTID) 1 g tablet Take 1 tablet by mouth 2 times daily 180 tablet 3 3 Active omeprazole (PRILOSEC) 40 MG delayed release capsuleIndications :Gastroesophageal reflux disease without esophagitis Take 1 capsule by mouth every morning (before breakfast) 90 capsule 3 4 Active amLODIPine (NORVASC) 10 MG tablet Take 1 tablet by mouth daily 90 tablet 3 4 Active rosuvastatin (CRESTOR) 10 MG tablet Take 1 tablet by mouth nightly 90 tablet 3 5 Active losartan (COZAAR) 50 MG tabletIndications: Hypertension, unspecified type Take 1 tablet by mouth once daily 90 tablet 3 5 Active gabapentin (NEURONTIN) 100 MG capsuleIndications :Neuropathy Take 1 capsule by mouth 2 times daily for 90 days. Max Daily Amount: 200 mg 180 capsule 5 06/08/20 25 Active gabapentin (NEURONTIN) 100 MG capsuleIndications :Neuropathy Take 1 capsule by mouth 2 times daily for 90 days. 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 0 06/29/2016 Polyarthralgia 04/10/2016 Chronic diarrhea 04/10/2016 Pain in both feet 04/10/2016 Essential hypertension 04/10/2016 Fatigue 04/10/2016 Vitamin D deficiency 04/10/2016 History of pancreatitis 04/10/2016 Encounters Date Type Department Care Team Description 03/10/2025 [place] [address] Dinora Quevedo APRN Neuropathy 01/09/2025 10:00 [place] [address] Zamzam Huerta APRN - ANITRA Hypertension, unspecified type (Primary Dx); Arthritis from Last 3 Months Immunizations Immunization Administration Dates Next Due COVID-19, PFIZER PURPLE top, DILUTE for use, (age 12 y+), 30mcg/0.3mL 12/29/2020,12/08/2020 Hep A, HAVRIX, VAQTA, (age 19y+), IM, 1mL 2018,08/14/2018 Hepatitis A 02/28/2019 Hepatitis A Adult (Vaqta) 02/28/2019 Influenza Virus Vaccine 07/11/2017 Influenza, FLUARIX, FLULAVAL , FLUZONE (age 6 mo+) and AFLURIA, (age 3 y+), Quadv PF, 0.5mL 07/05/2022,07/06/2021 Influenza, FLUZONE High Dose (age 65 y+), IM, Quadv, 0.7mL 07/25/2024 Pneumococcal, PCV-13, PREVNAR 13, (age 6w+), IM, 0.5mL 06/30/2017 TDaP, ADACEL (age 10y-64y), BOOSTRIX (age 10y+), IM, 0.5mL 03/24/2017 Zoster Recombinant (Shingrix) 04/29/2023 Social History Tobacco Use Types Packs/Day Years Used Date Smoking Tobacco: Former Cigarettes 1 48 1 960 - 2008 Smokeless Tobacco: Never Tobacco Cessation:Counseling Given: No Alcohol Use Standard Drinks/Week Comments No 0 (1 standard drink = 0.6 oz pur e alcohol) AUDIT-C Answer Date Recorded Q1: How often do you have a drink containing alcohol? Never 07/17/2023 Q2: How many drinks containi ng alcohol do you have on a typical day when you are drinking? Patient does not drink Q3: How often do you have si x or more drinks on one occasion? Never 07/17/2023 Overall Financial Resource Strain (CARDIA) Answe r Date Recorded How hard is it for you to pa y for the very basics like food, housing, medical care, and heating? Not hard at all 01/21/2023 PHQ-2 Answer Date Recorded PHQ-9 Total Score 0 01/09/2025 Exercise Vital Sign Answer Date Recorde d On average, how many days pe r week do you engage in moderate to strenuous exercise (like a brisk walk)? 0 days 07/17/2023 On average, how many minutes do you engage in exercise at this level? 0 min 07/17/2023 Hunger Vital Sign Answer Date Recorded Within the past 12 months, y ou worried that your food would run out before you got the money to buy more. Never true 01/22/20 23 Within the past 12 months, t he food you bought just didn't last and you didn't have money to get more. Never true 01/21/2023 PRAPARE - Transportation Answer Date Re corded Lack of Transportation (Medical) Not on file 01/21/2023 In the past 12 months, has l ack of transportation kept you from meetings, work, or from getting things needed for daily living? No 01/21/2023 Housing Stability Vital Sign Answer Wyatt e Recorded Unable to Pay for Housing in the Last Year Not o n file 01/21/2023 Number of Places Lived in the Last Year Not on f ile 01/21/2023 In the last 12 months, was t here a time when you did not have a steady place to sleep or slept in a group home (including now)? No 01/21/2023 Food Insecurity Answer Date Recorded Within the past 12 months, y ou worried that your food would run out before you got the money to buy more. 1 01/21/2023 Within the past 12 months, t he food you bought just didn't last and you didn't have money to get more. 1 01/21/2023 Comments No Sex and Gender Information Value Date Recorded Sex Assigned at Not on file Legal Sex Female 10:49 AM EDT Gender Identity Not on file Sexual Orientation Not on file Last Filed Vital Signs Vital Sign Reading Time Taken Comments Blood Pressure 130/74 01/09/2025 10:07 AM EDT Pulse 80 01/09/2025 10:07 AM EDT Temperature 36.4 C (97.6 F) 01/09/2025 10:07 AM EDT Respiratory Rate 18 01/09/2025 10:07 AM EDT Oxygen Saturation 95% 01/09/2025 10:07 AM EDT Inhaled Oxygen Concentration - - Weight 68.3 kg (150 lb 9.6 oz) 01/09/2025 10:07 AM EDT Height 154.9 cm (5' 1 ) 01/09/2025 10:07 AM EDT Body Mass Index 28.46 01/09/2025 10:07 AM EDT Plan of Treatment Health Maintenance Due Date Last Done Comments Hepatitis B vaccine (2 of 3 - Hep B Twinrix 3-dose series) 03/28/2019 02/28/2019 COVID-19 Vaccine ( season) 2024 07/05/2022, 07/06/2021, 12/29/2020, Additional history exists Annual Wellness Visit (Medicare Advantage) 10/12/2024 07/17/2023, 03/03/2018 Lipids 03/24/2025 03/24/2024, 10/0 12/2022, 12/17/2021, Additional history exists Depression Screen 01/09/2026 01/09/2025, 01/09/2025 DTaP/Tdap/Td vaccine (2 - Td or Tdap) 03/24/2027 03/24/2017 Hepatitis A vaccine Aged Out 02/28/2019, 02/28/2019, 02/28/2019, Additional history exists No longer eligible based on patient's age to complete this topic DEXA (modify frequency per FRAX score) Completed 11/12/2021, 11/12/2021 Pneumococcal 50+ years Vaccine Completed 12/10/2022, 01/20/2022, 06/30/2017, Additional history exists Shingles vaccine Completed 04/29/2023, 12/10/2022 Respiratory Syncytial Virus (RSV) or age 60 yrs+ Completed 09/12/2023 Flu vaccine Completed 07/25/2024, 11/2023, 07/11/2023, Additional history exists Hib vaccine Aged Out No longer eligi ble based on patient's age to complete this topic Meningococcal (ACWY) vaccine Aged Out No longer eligible based on patient's age to complete this topic Meningococcal B vaccine Aged Out No l onger eligible based on patient's age to complete this topic Polio vaccine Aged Out No longer elig ible based on patient's age to complete this topic Procedures Procedure Name Priority Date/Time Associated Diagnosis Comments LIPID PANEL Routine 03/24/2024 12:45 PM EDT Postsurgical hypothyroidism Hyperlipidemia, unspecified hyperlipidemia type DEXA BONE DENSITY AXIAL Routine 11/12/2021 from Last 3 Months or Most Recently Relevant to Health Maintenance Results * (ABNORMAL) Lipid Panel (03/24/2024 12:45 PM EDT) [facility] Signature Cholesterol, Total 178 0 - 200 mg/dL 03/24/2024 3:54 PM EDT [facility] Triglycerides 80 0 - 249 mg/dL 03/24/20 24 3:54 PM EDT [facility] HDL 95(H) 40 - 60 mg/dL 03/24/2024 3:54 PM EDT [facility] Comment: An HDL cholesterol less than 40 mg/dL is low and constitutes a coronary heart disease risk factor. An HDL cholesterol greater than 60 mg/dL is a negative risk factor for coronary heart disease. LDL Cholesterol 67 <100 mg/dL 4 4:27 PM EDT [facility] VLDL Cholesterol Calculated 16 Not Established mg/dL 03/24/2024 4:27 PM EDT [facility] Blood BLOOD SPECIMEN / Unknown 03/24/2024 12:45 PM EDT 03/24/2024 3:21 PM EDT us Dinora Quevedo TRAVEL REGISTERED NURSE ONCOLOGY CHEMISTRY ORDERABLES Final Res ult [facility] [address] [id number], [facility] [phone] * DEXA Bone Density Axial (11/12/2021) Anatomical Region Laterality Modality Hip, C-spine, T-spine, L-spine O ther us Historical Provider MD WHITAKER DEXA ORDERABLES Final Result from Last 3 Months or Most Recently Relevant to Health Maintenance Insurance Advance Directives Healthcare Agents on File Name Relationship Healthcare [facility] Len Sena Spouse Primary Decision Maker Care Teams Stone Fabricator Relationship Specialty Start Date End Date Dinora Quevedo APRN [address] [place] [address] PCP - General 06/18/16
--- OUTSIDE RECORDS SUMMARY | 2025-03-28 11:55 | XMS_ITS | Encounter Summary ---
Author Organization [facility] Address [address] [place] [address] Care Team Providers Care Tester Rocket Engine Name Role Phone Dinora Quevedo APRN Primary Care Provider [phone] Encounter Details Date Type Department Care Team (Late st Contact Info) Description 03/10/2025 Orders Only [facility] [address] [place], [place] [id number] Dinora Quevedo APRN [address] [place] [address] Neuropathy Social History Tobacco Use Types Packs/Day Years Used Date Smoking Tobacco: Former Cigarettes 1 48 1 960 - 2007 Smokeless Tobacco: Never Alcohol Use Standard Drinks/Week Comments No 0 [...] place to sleep or slept in a long term (including now)? No 01/21/2023 Food Insecurity Answer [...] on file Sexual Orientation Not on file documented as of this encounter Plan of Treatment Not on file documented as of this encounter Visit Diagnoses Diagnosis Neuropathy Mononeuritis of unspecified site documented in this encounter Additional Health Concerns Assessment Noted Time A fall risk assessment has been complete d for the patient 01/09/2025 10:05 AM EDT A Body Mass Index follow-up plan has been documented for the patient 01/22/2023 8:50 AM EDT documented as of this encounter Care Teams Tester Rocket Engine Relationship Specialty Start Date End Date Dinora Quevedo APRN [address] [place] [address] PCP - General 06/18/16 documented as of this encounter
--- OUTSIDE RECORDS SUMMARY | 2025-03-28 11:55 | XMS_ITS | Encounter Summary ---
Author Organization [facility] Address [address] [place] [address] Care Team Providers Care Tunnel Kiln Repairer Name Role Phone Dinora Quevedo APRN Primary Care Provider [phone] Encounter Details Date Type Department Care Team (Late st Contact Info) Description 06/28/2024 Orders Only [address] [place] [id number] Provider, MD Jean-Paul Social History Tobacco Use Types Packs/Day Years [...] Answer Date Recorded PHQ-9 Total Score 0 01/19/2024 Exercise Vital Sign Answer Date Recorde d [...] place to sleep or slept in a jail (including now)? No 01/21/2023 Food Insecurity Answer [...] on file documented as of this encounter Procedures Procedure Name Priority Date/Time Associated Diagnosis Comments EKG 12-LEAD Routine 06/25/2024 10:36 AM EDT documented in this encounter Results * EKG 12 Lead (06/25/2024 10:36 AM EDT) us Historical Provider ECG ORDERABLES Final Res ult documented in this encounter Visit Diagnoses Not on filedocumented in this encounter Additional Health Concerns Assessment Noted Time A fall risk assessment has been complete d for the patient 07/17/2023 10:44 AM EDT A Body Mass Index follow-up plan has been documented for the patient 01/22/2023 8:50 AM EDT documented as of this encounter Care Teams Tunnel Kiln Repairer Relationship Specialty Start Date End Date Dinora Quevedo APRN [address] [place] [address] PCP - General 06/18/16 documented as of this encounter
--- OUTSIDE RECORDS SUMMARY | 2025-03-28 11:55 | XMS_ITS | Patient Health Record ---
Author Organization [facility] Address [address] [address] Care Team Providers Care Transmission Technician Name Role Phone Ino MAR, [place] Unavailable [phone] Reason For Referral No Information Medications Medication SIG (Take, Route, Frequency, Duration) Notes Start Date End Date Status amLODIPine Besylate 10 MG Oral 1 every day Prescriber Name: BEBE CHAPARRO 12/03/2017 Active Synthroid 112 MCG Oral for 30 Active Colestipol HCl 1 GM 1 every day (take at night before bedtime) Oral 1 every day 12/25/2017 Active Aredia Active Losartan Potassium 50 MG Oral 1 every day Prescriber Name: BEBE CHAPARRO 12/03/2017 Active Immunizations Vaccine Route Administration Date Status Comme nts Influenza vaccine, high dose seasonal Unknown 9 Others Social History Tobacco Use: Social History Observation Description Date Details (start date - stop date) Never Smoker NA - NA Tobacco Use/Smoking (Archived) Question Answer Notes Are you a? nonsmoker Additional Findings: Tobacco Non-User Current no n-smoker Alcohol Screen (Audit-C) Question Answer Notes Did you have a drink containing alcohol in the p ast year? No Points 0 Interpretation Negative Problems Problem Type SNOMED Code ICD Code Onset Dates Problem Status W/U Status Risk Notes Problem Essential hypertension (08961908) Essential (primary) hypertension (I10) 12/03/19 18 Active confirmed [id number] 10- Problem Change in bowel habit (17621539) Change in bowel habit (R19.4) 12/03/19 18 Active confirmed [id number] 10- Problem Diarrhea (40589485) Diarrhea, unspecified (R19.7) 12/03/19 18 Active confirmed [id number] 10- Problem History of polyp of colon (875563397) Personal history of colonic polyps (Z86.010) 12/26/19 18 Active confirmed [id number] 10- Problem 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) 12/26/19 18 Active confirmed [id number] 10- Plan Of Treatment No Information Insurance Providers Payer Name Payer Address Payer Phone Subscriber Number Group Number Insured Name Patient Relationship to Insured Coverage Start Date Coverage End Date [place]IC[place] B [place] [employer] [address] [address] [place] [address] [id number] Milana Sena Self - patient is the insured 6 [employer] [place] PPO [address] [place], [place] [id number] Milana Sena Self - patient is the insured Medical (General) History Medical History History ICD Code gastroesophageal reflux disease (GERD) hypertension colonic polyps thyroid disease Arthritis thyroid cancer gallstones high blood pressure irritable bowel syndrome chronic pancreatitis Surgical History Surgery Date(Month/Year) Colonoscopy 11/2017 appendectomy 194 cholecystectomy 2015 hysterectomy, abdominal 1983 thyroidectomy gallbladder 2015
--- OUTSIDE RECORDS SUMMARY | 2025-03-28 11:55 | XMS_ITS | Continuity of Care Document ---
Author Organization [facility] Address [address] [place] [phone] Phone Care Team Providers Care Rail Layer Name Role Phone Dinora Quevedo APRN Primary Care Provider [phone] Encounters Date Type Department Care Team Description 04/07/[address] [place] [address] Quintin Campbell MD Results 04/04/2024 1:39 PM EDT - 04/04/2024 11:59 PM EDT Hospital Encounter [facility] [address] [place] [address] History of thyroid cancer Discharge Disposition: Home or Self Care 04/04/2024 1:00 PM EDT Office Visit [place] [address] [place] [phone] Quintin Campbell MD Post-surgical hypothyroidism (Primary Dx); History of thyroid cancer 05/11/2023 Refill [facility] [address] [phone] Quintin Campbell MD Medication Refill 04/06/2023 Telephone [facility] [address] [phone] Roxana Blum LPN Results 04/01/2023 Travel 04/01/2023 1:35 PM EDT - 04/01/2023 11:59 PM EDT Hospital Encounter [facility] [address] [place] [address] Post-surgical hypothyroidism; History of thyroid cancer; Hypocalcemia; Secondary hyperparathyroidism Discharge Disposition: Home or Self Care 04/01/2023 1:15 PM EDT Office Visit [facility] [address] [facility] [place] [phone] Quintin Campbell MD Post-surgical hypothyroidism (Primary Dx); History of thyroid cancer; Hypocalcemia; Secondary hyperparathyroidism 04/03/2022 Telephone [facility] [address] [phone] Quintin Campbell MD Results 04/03/2022 Orders Only [address] [place] [phone] Quintin Campbell MD Post-surgical hypothyroidism (Primary Dx); Hypocalcemia; Secondary hyperparathyroidism 04/02/2022 Telephone [facility] [address] [place] [phone] Quintin Campbell MD Medication Management 04/02/2022 Travel 04/02/2022 1:40 PM EDT - 04/02/2022 11:59 PM EDT Hospital Encounter [facility] [address] [place] [address] Post-surgical hypothyroidism; History of thyroid cancer; Hypocalcemia Discharge Disposition: Home or Self Care 04/02/2022 1:15 PM EDT Office Visit [facility] [address] [phone] Quintin Campbell MD Post-surgical hypothyroidism (Primary Dx); Hypocalcemia; History of thyroid cancer 06/19/2021 Telephone [facility] [address] [facility] [address] [place] [address] Quintin Campbell MD Results 06/07/2021 Telephone [facility] [address] [facility] [address] [place] [address] Quintin Campbell MD Labs Only 03/29/2021 Travel 03/29/2021 1:30 PM EDT Office Visit [facility] [address] [facility] [address] [place] [phone] Quintin Campbell MD Post-surgical hypothyroidism (Primary Dx); History of thyroid cancer Allergies Active Allergy Reactions Criticality Noted Date Comments Lisinopril Other (See Comments) 03/16/2017 Angioedema Medications amLODIPine (NORVASC) 10 mg Oral Tablet Take 10 mg by mouth daily. 1 Active losartan (COZAAR) 50 mg Oral Tablet Take 50 mg by mouth daily. 1 Active omeprazole (PRILOSEC) 20 mg Oral Capsule, Delayed Release(E.C.) Take 20 mg by mouth daily. 1 Active rosuvastatin (CRESTOR) 10 mg Oral Tablet Take 10 mg by mouth nightly. 1 Active magnesium oxide 400 mg magnesium Oral Capsule Take by mouth. Activ e doxycycline hyclate (VIBRA-TABS) 100 mg Oral Tablet Take by mouth every 12 hours. Active calcium carbonate (OS-PINO) 500 mg calcium (1,250 mg) Oral Tablet, Chewable Take 1 Tablet by mouth daily. 30 Tablet 2 Active Additional Information Patient not taking.Reason: Pt electing to not take the medication, Reported on 04/04/2024 colestipoL (COLESTID) 1 gram Oral Tablet Take 1 g by mouth daily. Active gabapentin (NEURONTIN) 100 mg Oral Capsule Take 100 mg by mouth 2 times daily. 4 Active mv-min/FA/vit K/lutein/zeaxan t (PRESERVISION AREDS 2 PLUS MV ORAL) Take by mouth. Activ e LEVOthyroxine (SYNTHROID) 125 mcg Oral Tablet Take 1 Tablet by mouth daily. 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 Hyperparathyroidism 04/04/2024 Secondary hyperparathyroidism 04/03/2022 Post-surgical hypothyroidism 03/28/2021 History of thyroid cancer 03/28/2021 Chronic midline low back pain without sciatica 0 06/29/2016 Chronic diarrhea 04/10/2016 Essential hypertension 04/10/2016 Fatigue 04/10/2016 History of pancreatitis 04/10/2016 Pain in both feet 04/10/2016 Polyarthralgia 04/10/2016 Vitamin D deficiency 04/10/2016 Social History Smoking Status as of 03/28/2025 Tobacco Use Types Packs/Day Years Used Date Smoking Tobacco: Never Assessed Sex and Gender Information Value Date Recorded Sex Assigned at Not on file Legal Sex Female 1:22 PM EST Gender Identity Not on file Sexual Orientation Straight 10/19/2023 7: 27 AM EST Last Filed Vital Signs Vital Sign Reading Time Taken Comments Blood Pressure 120/70 04/04/2024 12:53 PM EDT Pulse 75 04/04/2024 12:53 PM EDT Temperature - - Respiratory Rate 20 04/04/2024 12:5 3 PM EDT Oxygen Saturation - - Inhaled Oxygen Concentration - - Weight 70.7 kg (155 lb 12.8 oz) 024 12:53 PM EDT Height 154.9 cm (5' 1 ) 04/04/2024 12:5 3 PM EDT Body Mass Index 29.44 04/04/2024 12:53 PM EDT Plan of Treatment Upcoming Encounters Date Type Department Care Team (Late st Contact Info) Description 04/05/2025 11:30 AM EDT [facility] [place] [address] [place] [phone] Quintin Campbell MD [address] [place] [address] Procedures Procedure Name Priority Date/Time Associated Diagnosis Comments BILL TG CL Routine 04/04/2024 1:45 PM EDT History of thyroid cancer THYROGLOBULIN AND TG AB REFLEX MONITOR-REF LAB Routine 04/04/2024 1:45 PM EDT History of thyroid cancer LIPID PANEL REFLEX Routine 03/24/2024 COMPREHENSIVE METABOLIC PANEL Routine 03/24/2024 THYROID STIMULATING HORMONE Routine 03/24/2024 T4, TOTAL (THYROXINE) -REF LAB Routine 03/24/2024 BILL TG CL Routine 04/01/2023 1:44 PM EDT History of thyroid cancer VITAMIN D 25 HYDROXY Routine 04/01/2023 1:44 PM EDT Secondary hyperparathyroidism PARATHYROID HORMONE INTACT Routine 04/01/2023 1:44 PM EDT Secondary hyperparathyroidism COMPREHENSIVE METABOLIC PANEL Routine 04/01/2023 1:44 PM EDT Hypocalcemia THYROGLOBULIN AND TG AB REFLEX MONITOR-REF LAB Routine 04/01/2023 1:44 PM EDT History of thyroid cancer THYROID STIMULATING HORMONE Routine 04/01/2023 1:44 PM EDT Post-surgical hypothyroidism T4, FREE (THYROXINE) Routine 04/01/2023 1:44 PM EDT Post-surgical hypothyroidism T3 FREE Routine 04/01/2023 1:44 PM EDT Post-surgical hypothyroidism BILL TG CL Routine 04/02/2022 1:49 PM EDT History of thyroid cancer VITAMIN D 25 HYDROXY Routine 04/02/2022 1:49 PM EDT Hypocalcemia PARATHYROID HORMONE INTACT Routine 04/02/2022 1:49 PM EDT Hypocalcemia COMPREHENSIVE METABOLIC PANEL Routine 04/02/2022 1:49 PM EDT Hypocalcemia THYROGLOBULIN AND TG AB REFLEX MONITOR-REF LAB Routine 04/02/2022 1:49 PM EDT History of thyroid cancer THYROID STIMULATING HORMONE Routine 04/02/2022 1:49 PM EDT Post-surgical hypothyroidism T4, FREE (THYROXINE) Routine 04/02/2022 1:49 PM EDT Post-surgical hypothyroidism T3 FREE Routine 04/02/2022 1:49 PM EDT Post-surgical hypothyroidism T3 FREE Routine 12/17/2021 T4, FREE (THYROXINE) Routine 12/17/2021 THYROID STIMULATING HORMONE Routine 12/17/2021 COMPREHENSIVE METABOLIC PANEL Routine 12/17/2021 LIPID PANEL REFLEX Routine 12/17/2021 Results * BILL TG CL (04/04/2024 1:45 PM EDT) Only the most recent of3 resultswithin the time period is included. BILL_TG_CL-ARUP Billed 12:01 PM EDT [facility] [employer] Comment: Performed By: [facility] [address] [place] [id number] [employer] Worker Helper: Cachorro Urbina MD, PhD CLIA Number: [id number] Blood VENOUS BLOOD / Unknown Venipuncture / Unknown 04/04/2024 1:45 PM EDT 04/04/2024 1:45 PM EDT us Quintin Campbell MD IMMUNOLOGY ORDERABLES Final R esult [facility] [address] [place] [address] * (ABNORMAL) THYROGLOBULIN AND TG AB REFLEX MONITOR-REF LAB (04/04/2024 1:45 PM EDT) Only the most recent of3 resultswithin the time period is included. Thyroglobulin 0.2(L) 1.3 - 31.8 ng/mL 04/06/2024 12:01 PM EDT [facility] Comment: INTERPRETIVE INFORMATION: Thyroglobulin, Serum or Plasma Specimens negative for thyroglobulin antibodies (TgAb) are tested for thyroglobulin (Tg) by chemiluminescent immunoassay (MARTA) using the Yesenia Boyd Access DxI method. Specimens with TgAb results above the upper reference limit are tested for Tg by high-performance liquid chromatography-tandem mass spectrometry (LC-MS/MS). Results obtained with different test methods or kits cannot be used interchangeably. Tg results, regardless of concentration, should not be interpreted as absolute evidence for the presence or absence of papillary or follicular thyroid cancer. Tg testing is not recommended for use as a screening procedure to detect the presence of thyroid cancer in the general population. Thyroglob Ab <0.9 0.0 - 4.0 IU/mL 04/06/2024 12:01 PM EDT [facility] Comment: INTERPRETIVE INFORMATION: Thyroglobulin Antibody A value of 4.0 IU/mL or less indicates a negative result for thyroglobulin antibodies. The Thyroglobulin Antibody assay is being performed using the Yesenia Yoon Access DxI method. THYROGLOBULIN LC-MS/MS Not Applicable 1.3 - 31.8 ng/mL 04/06/2024 12:01 PM EDT [facility] Comment: INTERPRETIVE INFORMATION: Thyroglobulin by LC-MS/MS, Serum/Plasma Lower limit of detection for Thyroglobulin by LC-MS/MS is 0.5 ng/mL. This test was developed and its performance characteristics determined by [facility]. It has not been cleared or approved by the [place] Food and Drug Administration. This test was performed in a CLIA certified laboratory and is intended for clinical purposes. Performed By: [facility] [address] [place] [address] Rein[employer] Worker Helper: Cachorro Urbina MD, PhD CLIA Number: [id number] Blood VENOUS BLOOD / Unknown Venipuncture / Unknown 04/04/2024 1:45 PM EDT 04/04/2024 1:45 PM EDT Quintin Campbell MD CHEMISTRY ORDERABLES Final Re sult Performing Organization Address [facility]/[employer] [employer] Phone Number [facility] [address] [place] [address] * (ABNORMAL) LIPID PANEL REFLEX (03/24/2024) Only the most recent of2 resultswithin the time period is included. Cholesterol, Total 178 [facility] Comment:0-200 Triglycerides 80 MG/DL [facility] Comment:0-249 HDL 95(A) 35 - 70 MG/DL [facility] Comment:40-60 LDL Cholesterol 67 MG/DL [facility] Comment:<100 VLDL 16 MG/DL [facility] Blood VENOUS BLOOD / Unknown 03/24/2024 Quintin Campbell MD CHEMISTRY ORDERABLES Final Re sult Performing Organization Address [facility] de Phone Number SE[facility] * THYROID STIMULATING HORMONE (03/24/2024) Only the most recent of4 resultswithin the time period is included. TSH 0.690 0.400 - 4.500 MCIU/ML [facility] Comment:0.27-4.20 Blood VENOUS BLOOD / Unknown 03/24/2024 Quintin Campbell MD CHEMISTRY ORDERABLES Final Re sult Performing Organization Address City/[facility] [employer] Phone Number [facility] * T4, TOTAL (THYROXINE) -REF LAB (03/24/2024) T4 12.6 [facility] Comment:4.5-10.9 Blood VENOUS BLOOD / Unknown 03/24/2024 Quintin Campbell MD CHEMISTRY ORDERABLES Final Re sult [facility] * COMPREHENSIVE METABOLIC PANEL (03/24/2024) Only the most recent of4 resultswithin the time period is included. Sodium 142 137 - 147 MMOL/L [facility] Comment:136-145 Potassium 4.7 3.4 - 5.3 MMOL/L [facility] Comment:3.4-5.1 Chloride 102 99 - 108 MMOL/L [facility] Comment:98-107 CO2 28 MMOL/L [facility] Comment:20-30 Anion Gap 12 MMOL/L [facility] Comment:3-16 Glucose Lvl 102 MG/DL [facility] Comment:74-106 BUN 20 4 - 21 MG/DL [facility] Comment:6-20 Creatinine 0.9 0.5 - 1.1 MG/DL [facility] Comment:0.4-1.2 GFR Non Afr Am 64 [facility] Comment:>59 Calcium 9.00 8.70 - 10.70 MG/DL [facility] Comment:8.5-10.5 Total Protein 6.8 6.4 - 8.2 GM/DL [facility] Comment:6.4-8.3 Albumin 4.3 GM/DL [facility] Comment:3.4-4.8 Albumin/Globulin Ratio 1.7 [facility] Comment:0.8-2.0 Total Bilirubin 0.5 0.1 - 1.4 MG/DL [facility] Comment:0.3-1.2 Alk Phos 111 25 - 125 IU/L [facility] Comment:25-100 ALT 11 7 - 35 IU/L [facility] Comment:4-36 AST 17 13 - 35 IU/L [facility] Comment:8-33 Globulin 2.5 G/DL(CALC) [facility] Blood VENOUS BLOOD / Unknown 03/24/2024 Quintin Campbell MD CHEMISTRY ORDERABLES Final Re sult SE[facility] * VITAMIN D 25 HYDROXY (04/01/2023 1:44 PM EDT) Only the most recent of2 resultswithin the time period is included. [facility] Vit D 25 OH 32.2 30.0 - 150.0 ng/mL 04/01/2023 9:09 PM EDT [facility] Comment: Preferred: >= 30 ng/mL Insufficient: 21-29 ng/mL Deficient <= 20 ng/mL Possible Toxicity: >150 ng/mL Samples should not be taken from patients receiving therapy with high biotin doses (i.e. > 5 mg/day) until at least 8 hours following the last biotin administration. Blood VENOUS BLOOD / Unknown Venipuncture / Unknown 04/01/2023 1:44 PM EDT 04/01/2023 1:44 PM EDT Quintin Campbell MD CHEMISTRY ORDERABLES Final Re sult Performing Organization Address [facility] de Phone Number [address], [place] [address] * T3 FREE (04/01/2023 1:44 PM EDT) Only the most recent of3 resultswithin the time period is included. [facility] T3 Free 2.36 2.00 - 4.40 pg/mL 04/01/2023 8:58 PM EDT [facility] Blood VENOUS BLOOD / Unknown Venipuncture / Unknown 04/01/2023 1:44 PM EDT 04/01/2023 1:44 PM EDT Narrative [facility] - 04/01/2023 8:58 PM EDT Ingestion of pietro doses of biotin (>5 mg/day) taken within 8 hours of drawing blood sample can interfere with this immunoassay test. Quintin Campbell MD CHEMISTRY ORDERABLES Final Re sult Performing Organization Address [facility] [employer] Phone Number [facility] [employer] , [place] [address] * T4, FREE (THYROXINE) (04/01/2023 1:44 PM EDT) Only the most recent of3 resultswithin the time period is included. [facility] Free T4 1.65 0.80 - 1.80 ng/dL 04/01/2023 8:58 PM EDT [facility] Blood VENOUS BLOOD / Unknown Venipuncture / Unknown 04/01/2023 1:44 PM EDT 04/01/2023 1:44 PM EDT Narrative [facility] - 04/01/2023 8:58 PM EDT Ingestion of pietro doses of biotin (>5 mg/day) taken within 8 hours of drawing blood sample can interfere with this immunoassay test. us Quintin Campbell MD CHEMISTRY ORDERABLES Final Re sult [facility] [address] [facility] , [place] [address] * PARATHYROID HORMONE INTACT (04/01/2023 1:44 PM EDT) Only the most recent of2 resultswithin the time period is included. PTH Intact 52.00 15.00 - 65.00 pg/mL 04/01/2023 8:41 PM EDT [facility] Blood VENOUS BLOOD / Unknown Venipuncture / Unknown 04/01/2023 1:44 PM EDT 04/01/2023 1:44 PM EDT [facility] - 04/01/2023 8:41 PM EDT Intact PTH Calcium Interpretation ------- 15 - 65 8.6 - 10.2 Normal > 65 > 10.2 Primary Hyperparathyroidism < 20 > 10.2 Non-Parathyroid hypercalcemia < 15 < 8.6 Hypoparathyroidism Consider the above as guidelines only. PTH results should be interpreted in conjunction with the total or ionized calcium level. The finding of a persistently high-normal calcium accompanied by a high-normal PTH (or a low-normal calcium accompanied by a low-normal PTH) warrants further investigation. Although the PTH may itself be within normal limits, it may be inappropriately high (or low) relative to the circulating calcium level. Ingestion of pietro doses of biotin (>5 mg/day) taken within 8 hours of drawing blood sample can interfere with this immunoassay test. us Quintin Campbell MD CHEMISTRY ORDERABLES Final Re sult [facility] [address] [facility] , [address] [place] [id number] Visit Diagnoses Diagnosis Start Date Post-surgical hypothyroidism Postsurgical hypothyroidism 03/29/2021 History of thyroid cancer Personal history of malignant neoplasm of thyroid 03/29/2021 Post-surgical hypothyroidism Postsurgical hypothyroidism 04/02/2022 History of thyroid cancer Personal history of malignant neoplasm of thyroid 04/02/2022 Hypocalcemia 04/02/2022 Post-surgical hypothyroidism Postsurgical hypothyroidism 04/02/2022 Hypocalcemia 04/02/2022 History of thyroid cancer Personal history of malignant neoplasm of thyroid 04/02/2022 Post-surgical hypothyroidism Postsurgical hypothyroidism 04/03/2022 Hypocalcemia 04/03/2022 Secondary hyperparathyroidism Secondary hyperparathyroidism (of renal origin) 04/03/2022 Post-surgical hypothyroidism Postsurgical hypothyroidism 04/01/2023 History of thyroid cancer Personal history of malignant neoplasm of thyroid 04/01/2023 Hypocalcemia 04/01/2023 Secondary hyperparathyroidism Secondary hyperparathyroidism (of renal origin) 04/01/2023 Post-surgical hypothyroidism Postsurgical hypothyroidism 04/01/2023 History of thyroid cancer Personal history of malignant neoplasm of thyroid 04/01/2023 Hypocalcemia 04/01/2023 Secondary hyperparathyroidism Secondary hyperparathyroidism (of renal origin) 04/01/2023 History of thyroid cancer Personal history of malignant neoplasm of thyroid 04/04/2024 Post-surgical hypothyroidism Postsurgical hypothyroidism 04/04/2024 History of thyroid cancer Personal history of malignant neoplasm of thyroid 04/04/2024 Care Teams Rail Layer Relationship Specialty Start Date End Date Dinora Quevedo APRN PCP - General Nurse Practitioner-Family 03/29/21
--- OUTSIDE RECORDS SUMMARY | 2025-03-28 11:56 | XMS_ITS | Patient Health Record ---
Author Organization [facility] Billing Info Address [address] [place] [id number] Support Name Relationship Address Phone Aurelia Cleary Emergency Contact [address] [place] [address] Milana Sena Guarantor Unknown [phone] Allergies Allergen (clinical drug ingredient) Drug/Non Drug Allergy documented on EMR Reaction Allergy Type Onset Date Status lisinopril Lisinopril dry cough Drug Allergy Activ e Reason For Referral No Information Medications Medication SIG (Take, Route, Frequency, Duration) Notes Start Date End Date Status Gabapentin 100 MG 1 capsule Orally bid for 90 days Active Colestipol HCl Activ e Fosamax 70 MG 1 tablet 30 minutes before the first food, beverage or medicine of the day with plain water Orally Once a Week for 30 day(s) 12/18/2021 Unknown Amlodipine Besylate 10MG take one tablet by mouth once daily Orally Once a day for 90 days Active Fexofenadine HCl 190 mg (per pt) once a day Unknown Losartan Potassium-HCTZ 50-12.5 MG 1 tablet Orally Once a day for 30 day(s) Unknown Synthroid 125 MCG 1 tablet in the morning on an empty stomach Orally Once a day for 90 day(s) Active Rosuvastatin Calcium 10 MG 1 tablet Orally Once a day for 30 day(s) Active Albuterol Sulfate HFA 108 (90 Base) MCG/ACT 1 puff as needed Inhalation every 4 hrs for 30 day(s) 12/18/2021 Active Calcitriol 0.25 MCG 1 capsule Orally Three times a Week for 30 day(s) M,W,F Unknown PreserVision AREDS - as directed Orally 2 Active Omeprazole 20 MG 1 capsule 30 minutes before morning meal Orally Once a day for 90 day(s) Active Losartan Potassium 100 MG Take 1 tablet by mouth once daily for 90 Active Prevagen Active Immunizations Vaccine Route Administration Date Status Comme nts zINFLUENZA - SPLIT (3YR+) No Preservative IM Intramuscular 11/11/2012 Administered PNEUMOCOCCAL 13 CONJ ([id number]) IM Intramuscular 11/11/2012 Administered FLU (Past vaccine of unknown type) Unknown 07/12/1989 Administered FLU (Past vaccine of unknown type) Unknown 08/12/2001 Administered FLU (Past vaccine of unknown type) Unknown 07/12/2002 Administered FLU (Past vaccine of unknown type) Unknown 09/11/2003 Administered FLU (Past vaccine of unknown type) Unknown 08/18/2005 Administered FLU (Past vaccine of unknown type) Unknown 07/27/2006 Administered FLU (Past vaccine of unknown type) Unknown 08/24/2008 Administered FLU (Past vaccine of unknown type) Unknown 11/06/2010 Administered FLU (Past vaccine of unknown type) Unknown 08/22/2011 Administered FLU (Past vaccine of unknown type) Unknown 06/26/2013 Administered given @ [facility] PNEUMOCOCCAL (Past vaccine of unknown type) Unknown 11/09/2002 Administered TETANUS (Past vaccine of unknown type) Unknown 11/09/2002 Administered TETANUS (Past vaccine of unknown type) Unknown 10/12/2009 Administered zZOSTER (Past vaccine of unknown type)121 0 07/25/2014 Pending given @ [facility] Social History Tobacco Use: Social History Observation Description Date Details (start date - stop date) Former Smoker NA - NA Tobacco Status: Question Answer Notes Patient is a former smoker Problems Problem Type SNOMED Code ICD Code Onset Dates Problem Status W/U Status Risk Notes Problem Hyperlipidemia (30061486) Hyperlipidemia, unspecified (E78.5) Active confirmed Problem Essential hypertension (89377930) Essential (primary) hypertension (I10) Active confirmed Problem 48616870608103807 Pain in right foot (M79.671) Active confirmed Problem 580794915685766 Pain in left maria g t (M79.672) Active confirmed Problem 22102787 Wheezing (R06.2) Active confirmed Problem Seizure (40807428) Seizure (R56.9) Active confi rmed Problem 642500985 BMI 29.0-29.9,adult (Z68.29) Active confirmed Problem 132321457 Hypothyroidism (acquired) (E03.9) Active confirmed Problem 812156524 Osteoarthritis, unspecified osteoarthritis type, unspecified site (M19.90) Active confirmed Problem 53063487 Osteoporosis, unspecified osteoporosis type, unspecified pathological fracture presence (M81.0) Active confirmed Plan Of Treatment Pending Test Test Name Order Date EKG W/ INTERPRETATION (99908) INACTIVE 0 10/27/2012 MAMMOGRAPHY, SCREENING BILATERAL (85125) 11/11/2012 BLOOD, OCCULT, BY PEROXIDASE ACTIVITY, QUALITATIVE; FECES, 1-3 SIMULTANEOUS DETERMINATIONS (77254) IH 12/29/2013 MAMMOOPC- MAMMOGRAM SCREEN STUDY BILAT-C () [place] [place] 11/03/2014 COMPREHENSIVE METABOLIC PANEL(Q-78098) 0 12/18/2021 COMPREHENSIVE METABOLIC PANEL(Q-17305) 1 11/26/2019 URINALYSIS, COMPLETE W/REFLEX TO CULTURE (Q-3020) 09/25/2020 URINALYSIS, COMPLETE W/REFLEX TO CULTURE (Q-3020) 12/18/2021 TSH W/REFLEX TO FT4 (Q-65607) 09/25/2020 CBC (INCLUDES DIFF/PLT)(Q-6399) 09/25/20 20 CBC (INCLUDES DIFF/PLT)(Q-6399) 12/19/19 22 LIPID PANEL, STANDARD (Q-7600) 2 LIPID PANEL, STANDARD (Q-7600) 0 T3, TOTAL (Q-859) 09/25/2020 T3, TOTAL (Q-859) 12/18/2021 T4, FREE (Q-866) 09/25/2020 TSH (Q-899) 09/25/2020 TSH (Q-899) 12/18/2021 BD- DEXA BONE DENSITY AXIAL () ([facility])(OR [facility]-DEXAAXIAL) 09/24/2023 SARS-CoV-2 RNA, QUALITATIVE REAL-TIME RT -PCR (Q-44424) 10/16/2020 T4, FREE (Q-866) 12/18/2021 Insurance Providers Payer Name Payer Address Payer Phone Subscriber Number Group Number Insured Name Patient Relationship to Insured Coverage Start Date Coverage End Date [employer] MED[employer]AGE PPO [address] [address] [place] [id number] Milana Sena Self - patient is the insured [facility] [address] [place] [address] [id number] Milana Sena Self - patient is the insured 1 1 Medications Administered Medication Instructions Date of Administration Dosage Notes zBetamethasone ([employer]) 09/06/2012 1 mL Medical (General) History Medical History History ICD Code hernia depression hyperlipidemia Esophageal reflux CAD- sees Dr. Piedra; no recent visits osteoarthritis osteoporosis irritable bowel syndrome Mammogram- 11/2021- normal, declines fur ther screening DXA scan- 11/2021- osteoporosis Colonoscopy 2016 COVID vaccine ([employer])- 12/08/20, , booster given 07/06/22 flu vaccine- given at pharm for 2022 sea son Rheumatoid arthritis- goes to specialist in [place] (Dr. Israel Rosas) RSV vaccine- given at pharm 09/2023 shinges vaccine- given at pharm 2022 Surgical History Surgery Date(Month/Year) tonsillectomy child appendectomy child hysterectomy unsure hernia repair 05/2022 Hospitalization History Reason Date(Month/Year) bowel obstruction & hernia repair- in [place] 05/2022 seizure 09/2020
[2025-03-28 12:29] LABS: Basophils # 0.1 K/mm3 (0-0.2); Basophils % 0.4 % (0.1-2.0); Eosinophils # 0.2 Kmm3 (0.0-0.4); Hematocrit 42.4 % (37.0-47.0); Hemoglobin 12.7 g/dL (12.2-16.2); Immature Granulocytes # 0.07 10^3uL; Immature Granulocytes % 0.4 %; Lymphocytes # 2.2 K/mm3 (0.7-4.5); Lymphocytes % 14.1 % (10-50); Mean Corpuscular Hemoglobin 24.6 pg (27.0-31.2); Mean Platelet Volume 9.9 fl (7.4-10.4); Monocytes # 0.9 K/mm3 (0.1-1.0); Monocytes % 5.4 % (1.7-9.3); Neutrophils # 12.3 K/mm3 (1.8-7.8); Neutrophils % 78.7 % (37.0-80.0); Nucleated Red Blood Cells # 0 10^3/uL; Nucleated Red Blood Cells % 0 %; Platelet Count 304 K/mm3 (142-424); Red Blood Count 5.17 M/mm3 (4.20-5.40); Red Cell Distribution Width 16.9 % (11.5-17.5); Red Cell Distribution Width-SD 49.1 fL; White Blood Count 15.7 K/mm3 (4.8-10.8)
[2025-03-28 12:53] LABS: Chloride 105 mmol/L (98-107)
[2025-03-28 12:54] LABS: Albumin Level 4.4 g/dl (3.5-5.0); Potassium 4.1 mmoL/L (3.5-5.1); Sodium 140 mmol/L (136-145)
[2025-03-28 12:57] LABS: Alanine Aminotransferase 18 U/L (12-78); Albumin/Globulin Ratio 1.6 (1.1-1.8); Alkaline Phosphatase 114 U/L (38-126); Anion Gap 12.1 mEq/L (5-15); Aspartate Amino Transferase 28 U/L (14-36); Bilirubin,Total 0.4 mg/dl (0.2-1.3); Blood Urea Nitrogen 19 mg/dl (7-17); Calcium 9.1 mg/dl (8.4-10.2); Carbon Dioxide 27 mmol/L (22.0-30.0); Estimated Glomerular Filt Rate 69 ml/min (>60); GFR (African American) 83 ML/MIN (>60); Globulin 2.7 g/dL (1.3-3.2); Glucose 105 mg/dl (74-100); Total Protein,Serum 7.1 g/dl (6.3-8.2)
[2025-03-28 13:07] LABS: Total Iron Binding Capacity 341 ug/dL (265-497)
[2025-03-28 13:13] LABS: Triiodothryronine (T3) Uptake 35 % (23.5-40.5)
[2025-03-28 13:14] LABS: Free T4 (Free Thyroxine) 2.07 ng/dl (0.78-2.19)
[2025-03-28 13:28] LABS: Thyroid Stimulating Hormone 0.55 uIU/mL (0.465-4.68)
[2025-03-28 13:31] LABS: Ferritin 14.4 ng/ml (11.1-264)
[2025-03-28 14:50] LABS: Iron 50 ug/dL (37-170)
== END 2025-03-28 23:59 | disposition home or self-care (01) ==
LOC: LAB 11:52
PROVIDERS: Visit Provider Internal Medicine Gastroenterology
DX: E03.9 Hypothyroidism, unspecified (principal); B19.20 Unspecified viral hepatitis C without hepatic coma; K74.69 Other cirrhosis of liver; R19.7 Diarrhea, unspecified; R14.0 Abdominal distension (gaseous)
CPT/HCPCS: 36415; 80053; 82728; 83540; 83550; 84439; 84443; 84479; 85025

== ENCOUNTER 2025-03-29 10:55 | Outpatient (CLI) | payer MEDICARE, BC, SELFPAY ==
[2025-03-29 12:09] LABS: Occult Blood,Stool Negative (Negative)
[2025-03-31 15:37] LABS: Pancreatic Elastase, Fecal 355 (>200)
[2025-03-31 16:13] LABS: Calprotectin, Fecal 63 ug/g (0-120)
== END 2025-03-29 23:59 | disposition home or self-care (01) ==
LOC: LAB 10:56
PROVIDERS: PCP Nurse Practitioner Family; Visit Provider Internal Medicine Gastroenterology
DX: E03.9 Hypothyroidism, unspecified (principal); R19.7 Diarrhea, unspecified; R14.0 Abdominal distension (gaseous)
CPT/HCPCS: 82272; 82653; 83993; G0328